=== PATIENT | female | born 1935 | race Caucasian/White ===

== ENCOUNTER → 2016-02-27 | Outpatient (CLI) | payer MEDICARE, BC ==
--- NOTE | 2016-02-27 16:19 | XR ---
Cervical spine HISTORY: Neck pain 5 views of the cervical spine on 6 images, correlation to previous exam February Cervical vertebral bodies show preserved height and bone mineralization. Anterolisthesis grade 1 C5-6 , C4-5, C7-T1. Multilevel spondylosis is present, there is loss of disc height at C6-7, C5-6. Prevert ebral soft tissues are normal. Oblique images is not optimal to evaluate for foraminal encroachment o n the left, on the right there is foraminal encroachment at C5-6 and C6-7. There is multilevel facet arthropathy. IMPRESSION: Degenerative disc disease and foraminal encroachment.
--- NOTE | 2016-02-27 16:28 | XR ---
Lumbar spine HISTORY: Low back pain, M54.5 5 views of the lumbosacral spine Comparison is CT abdomen pelvis 28 Jun 2015 Lumbar vertebral bodies show preserved height and alignment. Loss of bone mineralization is present. Multilevel spondylosis is noted. Loss of disc height at the intervertebral levels. Sclerosis present in the posterior elements. Some mild loss of height at T12, some mild anterior wedging is present, th is is felt likely to been present on previous CT. There is no spondylolysis. Atherosclerotic vascular calcifications are noted incidentally. Some rounded densities in the frontal view in the right elli power location are indeterminate. IMPRESSION: Osteopenia. Degenerative disc disease and facet arthropathy. There may be some minimal co mpression deformity of T12, thought to be chronic. Bone scan or MRI may be of increased sensitivity o r specificity. Additional findings above.
== END | disposition home or self-care (01) ==
LOC: RADXRMAIN 11:42
PROVIDERS: ATTEND Internal Medicine
DX: S19.9XXA Unspecified injury of neck, initial encounter (principal); M50.30 Other cervical disc degeneration, unspecified cervical region; M51.36 Other intervertebral disc degeneration, lumbar region; M46.86 Other specified inflammatory spondylopathies, lumbar region; M85.88 Other specified disorders of bone density and structure, other site
CPT/HCPCS: 72050; 72110

== ENCOUNTER → 2016-05-10 | Outpatient (CLI) | payer MEDICARE, BC ==
--- NOTE | 2016-05-10 18:05 | XR ---
EXAMINATION TYPE: XR shoulder complete LT DATE OF EXAM: 05/10/2016 5:05 PM COMPARISON: NONE HISTORY: Shoulder pain TECHNIQUE: 3 views FINDINGS: There is mild spurring at the greater tuberosity of the humerus. There is minor spurring at the glenohumeral joint. There is spurring at the AC joint. I see no fracture nor dislocation. IMPRESSION: Mild spurring. No fracture seen.
--- NOTE | 2016-05-10 18:06 | XR ---
EXAMINATION TYPE: XR humerus LT DATE OF EXAM: 05/10/2016 5:05 PM COMPARISON: NONE HISTORY: Shoulder pain TECHNIQUE: 2 views FINDINGS: I see no fracture nor dislocation. There is spurring at the lateral humeral condyle. There is spurring on the olecranon process of the ulna. There is spurring at the greater tuberosity of the humerus. IMPRESSION: Hypertrophic spurring. No fracture seen.
== END | disposition home or self-care (01) ==
LOC: RADXRMAIN 16:36
PROVIDERS: ATTEND Internal Medicine
DX: M75.92 Shoulder lesion, unspecified, left shoulder (principal); M25.512 Pain in left shoulder; M77.9 Enthesopathy, unspecified; M79.622 Pain in left upper arm

== ENCOUNTER → 2016-05-16 | Outpatient (CLI) | payer MEDICARE, BC ==
--- NOTE | 2016-05-16 12:50 | XR ---
EXAMINATION TYPE: XR Hip Complete RT DATE OF EXAM: 05/16/2016 12:26 PM CLINICAL HISTORY: pain TECHNIQUE: AP and frogleg views of the right hip are obtained. COMPARISON: None. FINDINGS: There is no acute fracture/dislocation evident. The joint space appears moderately narro wed. The overlying soft tissue appears unremarkable. IMPRESSION: 1. There is no acute fracture or dislocation. ICD 10 NO FRACTURE, INITIAL EVALUATION
== END | disposition home or self-care (01) ==
LOC: RADXRMAIN 12:02
PROVIDERS: ATTEND Internal Medicine
DX: M25.551 Pain in right hip (principal)
CPT/HCPCS: 73502

== ENCOUNTER → 2016-12-05 | Outpatient (CLI) | payer MEDICARE, BC ==
--- NOTE | 2016-12-06 09:46 | XR ---
EXAMINATION TYPE: XR ankle limited LT DATE OF EXAM: 12/05/2016 COMPARISON: NONE HISTORY: Pain FINDINGS: Three views of the ankle demonstrate extensive postsurgical change. The soft tissue ossification and diffuse soft tissue edema. Diffuse osteopenia noted. Calcaneal spurs are noted with sclerosis along t he inferior margin the calcaneus. IMPRESSION: 1. No definite acute fracture or dislocation, if symptoms persist follow-up study in 7 to 10 days wou ld be suggested. 2. Postsurgical change. 3. lucency involving the calcaneus may be related to small intraosseous lipoma or geode. 4. Sclerosis along the inferior margin of the calcaneus could be assessed with bone scan if there is concern for infection.
--- NOTE | 2016-12-06 09:56 | XR ---
EXAMINATION TYPE: XR foot limited LT DATE OF EXAM: 12/05/2016 COMPARISON: NONE HISTORY: Pain TECHNIQUE: Three views are submitted. FINDINGS: Diffuse osteopenia noted with arthropathy of the MTP, PIP and DIP joints. Extensive previous surgery involving the ankle. No acute fracture. Lucency and sclerosis involving the calcaneus could be assess ed with bone scan. IMPRESSION: 1. Severe osteopenia. Findings involving the calcaneus may be chronic. Consider bone scan or CT follo w-up. 2. Arthropathy.
== END | disposition home or self-care (01) ==
LOC: RADXRMAIN 16:58
PROVIDERS: ATTEND Internal Medicine
DX: M12.872 Other specific arthropathies, not elsewhere classified, left ankle and foot (principal); M85.872 Other specified disorders of bone density and structure, left ankle and foot; R93.7 Abnormal findings on diagnostic imaging of other parts of musculoskeletal system; Z98.890 Other specified postprocedural states

== ENCOUNTER 2016-12-06 15:19 | Emergency (ER) | payer MEDICARE, BC ==
--- NOTE | 2016-12-06 16:13 | ED ---
General Adult HPI - General Chief complaint: Skin/Abscess/Foreign Body Stated complaint: [facility] sent Time Seen by Provider: 12/06/16 15:52 Source: patient, family, RN notes reviewed Mode of arrival: wheelchair - History of Present Illness Initial comments: 85-year-old female presents to the emergency department with a chief complaint of some bruising noted right lower x-ray. Patient states that she had a bruise there after she hit her leg about a week ago and she's been scratching it now she notices some additional bruising so they were concerned. She did twist her left ankle we can only state that has been slowly getting more and more swollen as well. They were concerned due to the patient's presenting symptoms and went to [facility] and they were referred here. She denies any easy bruising out of the ordinary else. She states that it is an itchy area of the leg. She denies any other symptoms at this time. Patient denies any recent fever, chills , shortness of breath, chest pain, back pain, abdominal pain, nausea vomiting, numbness or tingling, dysuria or hematuria, constipation or diarrhea, headaches or visual changes, or any other current symptoms. - Related Data Home Medications Medication Instructions Recorded Confirmed Aspirin [Adult Low Dose Aspirin EC] 81 mg PO DAILY 05/23/15 12/06/16 Cholecalciferol [Vitamin D3] 1,000 unit PO DAILY 05/23/15 12/06/16 Clopidogrel [Plavix] 75 mg PO DAILY 05/23/15 12/06/16 Lovastatin [Mevacor] 20 mg PO DAILY 05/23/15 12/06/16 Metoprolol Tartrate [Lopressor] 50 mg PO BID 05/23/15 12/06/16 Multivitamins, Thera [Multivitamin] 1 tab PO DAILY 05/23/15 12/06/16 HYDROcodone/APAP 5-325MG [[place] 1 tab PO Q4HR PRN 05/26/15 12/06/16 5-325] Vit C/E/Zn/Coppr/Lutein/Zeaxan 2 cap PO DAILY 12/06/16 12/06/16 [Preservision Areds 2 Softgel] Allergies Allergy/AdvReac Type Severity Reaction Status Date / Time Penicillins Allergy Anaphylaxis Verified 12/06/16 15:55 procaine HCl [From Novocain] Allergy Unknown Verified 12/06/16 15:55 alprazolam [From Xanax] AdvReac Hallucinati Verified 12/06/16 15:55 ons Review of Systems ROS Statement: Those systems with pertinent positive or pertinent negative responses have been documented in the HPI. ROS Other: All systems not noted in ROS Statement are negative. Past Medical History Past Medical History: Hearing Disorder / Deafness, Hyperlipidemia, Hypertension , Osteoarthritis (OA), Respiratory Disorder History of Any Multi-Drug Resistant Organisms: MRSA Date of last positivie culture/infection: 06/02/15 MDRO Source:: Right Foot Past Surgical History: Adenoidectomy, Appendectomy, Bowel Resection, Heart Catheterization With Stent, Orthopedic Surgery, Tonsillectomy, Tubal Ligation Past Anesthesia/Blood Transfusion Reactions: No Reported Reaction Date of Last Stent Placement:: 1995 Past Psychological History: No Psychological Hx Reported Smoking Status: Never smoker Past Alcohol Use History: Rare Past Drug Use History: None Reported - Past Family History Mother Family Medical History: No Reported History Brother(s) Family Medical History: Cancer Father History Unknown: Yes General Exam - General Exam Comments Initial Comments: General: The patient is awake and alert, in no distress, and does not appear acutely ill. Neck: The neck is supple, there is no tenderness. Cardiovascular: There is a regular rate and rhythm. No murmur, rub or gallop is appreciated. Respiratory: Lungs are clear to auscultation, respirations are non-labored, breath sounds are equal. No wheezes, stridor, rales, or rhonchi. Musculoskeletal: Sensation intact. Patient has 2+ pulses throughout the right lower extremity with Doppler. Patient does appear to have a linear type petechiae type rash just in the anterior aspect of the right leg most consistent with scratching. No open sores. Patient does appear to have some pitting edema tenderness to palpation of the left lower extremity and tenderness with patient of the left ankle. Patient does not ambulate normally. She does have good range of motion noted. Neurological: CN II-XII intact, There are no obvious motor or sensory deficits. Coordination appears grossly intact. Speech is normal. Skin: Skin is warm and dry and no rashes or lesions are noted. Psychiatric: Normal mood and affect. Course Vital Signs 12/06/16 15:41 Temperature 97 F L Pulse Rate 67 Respiratory 18 Rate Blood Pressure 127/68 O2 Sat by Pulse 96 Oximetry EKG Findings - EKG Comments: EKG Findings:: normal sinus rhythm with premature atrial complexes, 69 bpm, normal axis, no atopy, no S-T depressions or elevations, Medical Decision Making - Medical Decision Making 81-year-old female presents for some bruising noted to the right anterior extremity as well as swelling to the left lower extremity. This time patient's lab work has been reviewed. Patient does appear to history of hyperkalemia does have that today. EKG was reviewed that does not show any hyperkalemic changes. This time we will give her Kayexalate. Patient also has a mild bump in her creatinine however she does suffer from chronic kidney disease. We did give her some fluids. Discussions follow-up with her doctor for lab redraw. We are unable to get a PT/INR we were unable to get the blood. We did discuss with the patient that we would like these lab values to rule out any abnormalities due to some petechiae in her leg however our suspicion is most likely due to patient's trauma because she's been scratching leg and the patient has refused to let us broke her anymore for this before. She states that the doctor is always gets her blood and she will just have it checked tomorrow she will return if it worsens I talked with the patient's cleaner and dyer at bedside was states that she will be to the patient returns if it worsens as well. At this time the patient will be discharged home and all questions have been answered. They will be discharged. - Lab Data Result diagrams: 12/06/16 17:25 12/06/16 17:25 Lab Results 12/06/16 12/06/16 Range/Units 17:25 17:25 WBC 9.2 (3.8-10.6) k/uL RBC 2.90 L (3.80-5.40) m/uL Hgb 9.7 L (11.4-16.0) gm/dL Hct 31.1 L (34.0-46.0) % MCV 107.0 H (80.0-100.0) fL MCH 33.2 (25.0-35.0) pg MCHC 31.1 (31.0-37.0) g/dL RDW 13.8 (11.5-15.5) % Plt Count 509 H (150-450) k/uL Sodium 141 (137-145) mmol/L Potassium 5.9 H (3.5-5.1) mmol/L Chloride 101 (98-107) mmol/L Carbon Dioxide 23 (22-30) mmol/L Anion Gap 17 mmol/L BUN 38 H (7-17) mg/dL Creatinine 1.80 H (0.52-1.04) mg/dL Est GFR (MDRD) Af Amer 33 (>60 ml/min/1.73 sqM) Est GFR (MDRD) Non-Af 27 (>60 ml/min/1.73 sqM) Glucose 114 H (74-99) mg/dL Calcium 9.7 (8.4-10.2) mg/dL Total Bilirubin 0.5 (0.2-1.3) mg/dL AST 44 H (14-36) U/L ALT 46 (9-52) U/L Alkaline Phosphatase 90 (38-126) U/L Total Protein 8.9 H (6.3-8.2) g/dL Albumin 4.8 (3.5-5.0) g/dL - Radiology Data Radiology results: report reviewed, image reviewed Disposition Clinical Impression: Left leg swelling, Petechial rash, Chronic kidney disease, Hyperkalemia Disposition: HOME SELF-CARE Condition: Stable Instructions: Hyperkalemia (ED) Additional Instructions: Please follow up with her doctor tomorrow for repeat blood work. Please return for any worsening symptoms. Please use medication as discussed. Please follow up with family doctor if symptoms have not improved over the next two days. Please return to the emergency room if your symptoms increase or worsen or for any other concerns. Referrals: Nidhi Buchanan MD [Primary Care Provider] - 1-2 days Time of Disposition: 18:29
[2016-12-06 17:49] LABS: Calcium 9.7 mg/dL (8.4-10.2); Potassium 5.9 mmol/L (3.5-5.1); Total Bilirubin 0.5 mg/dL (0.2-1.3); Total Protein 8.9 g/dL (6.3-8.2)
[2016-12-06 17:52] LABS: Aty Lym Flag Slight; CH 31.4; CHCM 29.5; HCT 31.1 % (34.0-46.0); HDW 2.31; HGB 9.7 gm/dL (11.4-16.0); Hypochromasia Marked; MCH 33.2 pg (25.0-35.0); MCHC 31.1 g/dL (31.0-37.0); Macrocytosis Moderate; Mean Platelet Volume 7.6; RDW 13.8 % (11.5-15.5); WBC 9.2 k/uL (3.8-10.6); WBC (Perox) 9.49
--- NOTE | 2016-12-06 18:09 | US ---
EXAMINATION TYPE: US venous doppler duplex LE LT DATE OF EXAM: 12/06/2016 6:05 PM COMPARISON: NONE CLINICAL HISTORY: Pain. Left leg edema SIDE PERFORMED: Left TECHNIQUE: The lower extremity deep venous system is examined utilizing real time linear array sonog lemuel with graded compression, doppler sonography and color-flow sonography. VESSELS IMAGED: External Iliac Vein (EIV) Common Femoral Vein Deep Femoral Vein Greater Saphenous Vein * Femoral Vein Popliteal Vein Small Saphenous Vein * Proximal Calf Veins (* superficial vessels) Grayscale, color doppler, spectral doppler imaging performed of the deep veins of the lower extremiti es. There is normal flow, compressibility, vascular waveforms. Left Leg: Negative for DVT No evidence of DVT left leg IMPRESSION: No sonographic evidence of deep venous thrombosis within the left lower extremity.
[2016-12-06] MEDS ORDERED: SODIUM CHLORIDE 0.9% 1,000 ML IV STA (18:10)
[2016-12-06 18:27] LABS: Add Differential Manual Differential
[2016-12-06 18:30] LABS: Band Neutrophils % 2 %; Nucleated Red Blood Cells 0 /100 WBC (0-0); Total Cells Counted 100
[2016-12-06] MEDS ORDERED: SODIUM POLYSTYRENE SULFONATE 15 GM/60 ML BOTTLE PO STA (18:30)
[2016-12-06 18:31] LABS: Manual Review Performed
[2016-12-06 19:41] VITALS: BP 191/76; PULSE 72; RESP 16; TEMP 96.9
== END 2016-12-06 19:51 | disposition home or self-care (01) ==
LOC: EC 15:19
DX: M79.89 Other specified soft tissue disorders (principal); E87.5 Hyperkalemia; N18.9 Chronic kidney disease, unspecified; R21 Rash and other nonspecific skin eruption; R60.0 Localized edema; E78.5 Hyperlipidemia, unspecified; I12.9 Hypertensive chronic kidney disease with stage 1 through stage 4 chronic kidney disease, or unspecified chronic kidney disease; M19.90 Unspecified osteoarthritis, unspecified site; Z79.02 Long term (current) use of antithrombotics/antiplatelets; Z79.82 Long term (current) use of aspirin; Z79.899 Other long term (current) drug therapy; Z88.0 Allergy status to penicillin; Z88.4 Allergy status to anesthetic agent; Z88.8 Allergy status to other drugs, medicaments and biological substances
CPT/HCPCS: 36415; 80053; 85025; 93005; 96360; 99284

== ENCOUNTER 2017-09-01 19:59 | Inpatient (IN) | payer MEDICARE, BC ==
[2017-09-01] MEDS ORDERED: KETOROLAC 30 MG/ML 1 ML VIAL IVP STA (20:37)
--- NOTE | 2017-09-01 20:40 | ED ---
Fall HPI - General Chief Complaint: Fall Stated Complaint: fall/hip pain Time Seen by Provider: 09/01/17 20:27 Source: patient, family Mode of arrival: wheelchair - History of Present Illness Initial Comments: 81-year-old female presenting with left hip pain. Patient states yesterday all reaching for a towel she lost her footing, states she twisted to the right but did not fall. She states she had no pain at that time and then she woke this morning had severe left hip pain. She normally has trouble ambulating at baseline and uses a rolling walker but today her required four people to get her to the hospital. Patient states she at baseline has neuropathy and has not had any worsening numbness in the left lower extremity. She denies any chest pain shortness of breath or presyncopal symptoms. Denies any head injury or blood thinner use. Patient is incontinent and the daughter is complaining that she is having foul-smelling urine. - Related Data Home Medications Medication Instructions Recorded Confirmed Aspirin [Adult Low Dose Aspirin EC] 81 mg PO DAILY 05/23/15 12/06/16 Cholecalciferol [Vitamin D3] 1,000 unit PO DAILY 05/23/15 12/06/16 Clopidogrel [Plavix] 75 mg PO DAILY 05/23/15 12/06/16 Lovastatin [Mevacor] 20 mg PO DAILY 05/23/15 12/06/16 Metoprolol Tartrate [Lopressor] 50 mg PO BID 05/23/15 12/06/16 Multivitamins, Thera [Multivitamin] 1 tab PO DAILY 05/23/15 12/06/16 HYDROcodone/APAP 5-325MG [[place] 1 tab PO Q4HR PRN 05/26/15 12/06/16 5-325] Vit C/E/Zn/Coppr/Lutein/Zeaxan 2 cap PO DAILY 12/06/16 12/06/16 [Preservision Areds 2 Softgel] Allergies Allergy/AdvReac Type Severity Reaction Status Date / Time Penicillins Allergy Anaphylaxis Verified 09/01/17 20:15 procaine HCl [From Novocain] Allergy Unknown Verified 09/01/17 20:15 alprazolam [From Xanax] AdvReac Hallucinati Verified 09/01/17 20:15 ons Review of Systems ROS Statement: Those systems with pertinent positive or pertinent negative responses have been documented in the HPI. Review of Systems Constitutional: Denies fever, chills Eyes: Denies change in vision, Denies pain Ears, nose, mouth, throat: Denies headaches, Denies sore throat Cardiovascular: Denies chest pain. Denies palpitations Respiratory: Denies shortness of breath, Denies cough Gastrointestinal: Denies abdominal pain. Denies nausea, vomiting, diarrhea. Genitourinary: Denies hematuria, Denies infections Musculoskeletal: Left hip pain. Denies swelling Integumentary: Denies rash Neurological: Denies headache, focal weakness, focal numbness Psychiatric: Denies anxiety, Denies depression Hematologic/Lymphatic: Denies easy bleeding or bruising ROS Other: All systems not noted in ROS Statement are negative. Past Medical History Past Medical History: Cancer, Hearing Disorder / Deafness, Hyperlipidemia, Hypertension, Osteoarthritis (OA), Respiratory Disorder Additional Past Medical History / Comment(s): right breast cancer History of Any Multi-Drug Resistant Organisms: MRSA Date of last positivie culture/infection: 06/02/15 MDRO Source:: Right Foot Past Surgical History: Adenoidectomy, Appendectomy, Bowel Resection, Breast Surgery, Heart Catheterization With Stent, Orthopedic Surgery, Tonsillectomy, Tubal Ligation Additional Past Surgical History / Comment(s): right arm, Past Anesthesia/Blood Transfusion Reactions: No Reported Reaction Date of Last Stent Placement:: 1995 Past Psychological History: No Psychological Hx Reported Smoking Status: Never smoker Past Alcohol Use History: Rare Past Drug Use History: None Reported - Past Family History Mother Family Medical History: No Reported History Brother(s) Family Medical History: Cancer Father History Unknown: Yes General Exam - General Exam Comments Initial Comments: General: Awake, alert, No acute Distress. Obese HENT: Normocephalic. Atraumatic Eyes: PERRL. EOMI. No scleral icterus. No injected conjunctiva Neck: Full ROM Chest/Lungs: Clear to auscultation bilaterally. No wheezing, rhonchi, or rales Cardiac: Regular rate, rhythm. No murmurs or rubs. 1+DP pulse on left Abdomen/GI: [Soft, nontender, nondistended. No rebound, guarding, or rigidity. Musculoskeletal: Limited ROM of left hip secondary to pain Skin: Warm, dry, intact Neurologic: A/Ox3, no weakness, L3-S1 decreased on LLE, no coordination deficit Limitations: physical limitation Course Vital Signs 09/01/17 09/01/17 20:10 23:11 Temperature 98.4 F Pulse Rate 96 Respiratory 18 16 Rate Blood Pressure 123/53 O2 Sat by Pulse 96 Oximetry Medical Decision Making - Medical Decision Making 81-year-old female presenting with left hip pain. Initial exam the patient is awake, alert, no acute distress. VSS. Patient has left groin tenderness. Decreased range of motion of the left hip secondary to pain. Patient also has foul-smelling urine. She is currently in a brief and is incontinent. She denies any head injury, neck injury and therefore imaging of the head and neck was not done. She denied back pain. Patient's x-rays were negative. A CT was done which showed osteoarthritis but no acute fracture. She was found to have a UTI, was given Bactrim, a urine culture was sent. The remainder the patient' s laboratory workup revealed a leukocytosis and CKD. At this and the patient requires admission for inability to ambulate secondary to her left hip pain. Spoke with Dr. Barrios who is agreeable to admission. Patient is currently stable for transfer to the floor. - Lab Data Result diagrams: 09/01/17 21:25 09/01/17 21:25 Lab Results 09/01/17 09/01/17 09/01/17 Range/Units 21:25 21:25 21:30 WBC 11.5 H (3.8-10.6) k/uL RBC 2.27 L (3.80-5.40) m/uL Hgb 7.3 L (11.4-16.0) gm/dL Hct 23.0 L (34.0-46.0) % MCV 101.0 H (80.0-100.0) fL MCH 32.2 (25.0-35.0) pg MCHC 31.8 (31.0-37.0) g/dL RDW 13.9 (11.5-15.5) % Plt Count 467 H (150-450) k/uL Neutrophils % (Manual) 53 % Lymphocytes % (Manual) 30 % Monocytes % (Manual) 17 % Neutrophils # (Manual) 6.10 (1.3-7.7) k/uL Lymphocytes # (Manual) 3.45 (1.0-4.8) k/uL Monocytes # (Manual) 1.96 H (0-1.0) k/uL Nucleated RBCs 0 (0-0) /100 WBC Manual Slide Review Performed Large Platelets Present Macrocytosis Slight Sodium 137 (137-145) mmol/L Potassium 5.1 (3.5-5.1) mmol/L Chloride 100 (98-107) mmol/L Carbon Dioxide 24 (22-30) mmol/L Anion Gap 13 mmol/L BUN 58 H (7-17) mg/dL Creatinine 2.40 H (0.52-1.04) mg/dL Est GFR (CKD-EPI)AfAm 21 (>60 ml/min/1.73 sqM) Est GFR (CKD-EPI)NonAf 18 (>60 ml/min/1.73 sqM) Glucose 127 H (74-99) mg/dL Calcium 9.0 (8.4-10.2) mg/dL Urine Color Light Yellow Urine Appearance Turbid H (Clear) Urine pH 6.5 (5.0-8.0) Ur Specific [place] 1.009 (1.001-1.035) Urine Protein 1+ H (Negative) Urine Glucose (UA) Negative (Negative) Urine Ketones Negative (Negative) Urine Blood Moderate H (Negative) Urine Nitrite Positive H (Negative) Urine Bilirubin Negative (Negative) Urine Urobilinogen <2.0 (<2.0) mg/dL Ur Leukocyte Esterase Large H (Negative) Urine RBC 16 H (0-5) /hpf Urine WBC >182 H (0-5) /hpf Urine WBC Clumps Many H (None) /hpf Urine Bacteria Many H (None) /hpf Urine Mucus Rare H (None) /hpf Disposition Clinical Impression: UTI (urinary tract infection), CKD (chronic kidney disease), Inability to ambulate due to hip, Fall Disposition: ADMITTED IP TO THIS HOSP Condition: Good Referrals: Isabelle Dailey MD [Primary Care Provider] - 1-2 days Decision Date: 09/02/17 Decision Time: 00:52
[2017-09-01 21:49] LABS: Appearance,Urine Turbid (Clear); Bacteria,Urine Many /hpf; Bilirubin,Urine Negative (Negative); Blood,Urine Moderate (Negative); Color,Urine Light Yellow; Glucose,Urine (UA) Negative (Negative); Ketones,Urine Negative (Negative); Leukocyte Esterase,Urine Large (Negative); Mucus,Urine Rare /hpf; Nitrite,Urine Positive (Negative); PH, Urine 6.5 (5.0-8.0); Protein,Urine 1+ (Negative); RBC,Urine 16 /hpf (0-5); Specific Gravity,Urine 1.009 (1.001-1.035); Urobilinogen,Urine <2.0 mg/dL (<2.0); WBC,Urine >182 /hpf (0-5)
[2017-09-01 22:02] LABS: HGB 7.3 gm/dL (11.4-16.0); MCH 32.2 pg (25.0-35.0); MCHC 31.8 g/dL (31.0-37.0); Macrocytosis Slight; Mean Platelet Volume 7.2; Platelet Count 467 k/uL (150-450); RBC 2.27 m/uL (3.80-5.40); RDW 13.9 % (11.5-15.5); WBC 11.5 k/uL (3.8-10.6)
[2017-09-01] MEDS ORDERED: SULFAMETHOX-TMP 800-160MG 1 EACH TAB PO STA (22:02)
[2017-09-01] MEDS ORDERED: FAMOTIDINE 20 MG TAB PO STA (22:13)
[2017-09-01 22:18] LABS: Lymphocytes # (M) 3.45 k/uL (1.0-4.8); Monocytes # (M) 1.96 k/uL (0-1.0); Neutrophils % (M) 53 %; Nucleated Red Blood Cells 0 /100 WBC (0-0); Total Cells Counted 100
[2017-09-01 22:19] LABS: Large Platelets Present
[2017-09-01 22:25] LABS: Potassium 5.1 mmol/L (3.5-5.1)
--- NOTE | 2017-09-01 23:31 | XR ---
EXAMINATION TYPE: XR Hip LT and AP Pelvis DATE OF EXAM: 09/01/2017 COMPARISON: NONE HISTORY: Twisted leg. Pain. TECHNIQUE: A single AP view of the pelvis is obtained. Two views of the left hip are obtained. FINDINGS: I see no fracture nor dislocation. There is spurring of the acetabulum. Pelvic ring is int act. Sacroiliac joints appear normal. There is no sign of hip dysplasia. IMPRESSION: No acute abnormality of the pelvis and left hip. Hypertrophic degenerative spur formation.
--- NOTE | 2017-09-01 23:32 | XR ---
EXAMINATION TYPE: XR femur LT DATE OF EXAM: 09/01/2017 COMPARISON: None HISTORY: Leg pain TECHNIQUE: 4 views FINDINGS: There is a left knee prosthesis. Components appear in anatomic position. There is acetabula r spurring. I see no fracture nor dislocation. There is vascular calcification. IMPRESSION: No acute abnormality of the left femur.
--- NOTE | 2017-09-02 00:46 | CT ---
EXAMINATION TYPE: CT hip LT wo con DATE OF EXAM: 09/02/2017 COMPARISON: None HISTORY: Left Hip pain CT DLP: 456.80 mGycm Automated exposure control for dose reduction was used. FINDINGS: Multiple axial sections were obtained from the level of the mid ileum to the subtrochanteric femur wi th no contrast. IMPRESSION: THERE IS MILD ACETABULAR SPURRING. THERE IS SLIGHT NARROWING OF THE HIP JOINT SPACE. THERE IS SPURRIN G OF THE FEMORAL HEAD. I SEE NO FRACTURE. PROXIMAL FEMUR IS INTACT. THE ACETABULUM IS INTACT. THE VIS UALIZED LEFT SACROILIAC JOINT IS INTACT. I SEE NO FOCAL BONE DESTRUCTION. I SEE NO SIGN OF HIP JOINT EFFUSION. IMPRESSION: MILD TO MODERATE HYPERTROPHIC OSTEOARTHRITIS. NO FRACTURE SEEN.
[2017-09-02] MEDS ORDERED: IBUPROFEN 400 MG TAB PO PRN (00:55)
[2017-09-02] MEDS ORDERED: NALOXONE 0.4 MG/ML 1 ML VIAL IV PRN (00:55)
[2017-09-02] MEDS ORDERED: ONDANSETRON 4 MG/2 ML VIAL IVP PRN (00:55)
[2017-09-02] MEDS ORDERED: ACETAMINOPHEN TAB 325 MG TAB PO PRN (00:55)
[2017-09-02] MEDS: HYDROcodone/APAP 5-325MG 1 EACH TAB PO PRN ×2 (03:11→22:23)
--- NOTE | 2017-09-02 07:00 | P.HPIM ---
History of Present Illness H&P Date: 09/02/17 Chief Complaint: Severe left hip pain 81-year-old female with history of hypertension presented to the ER with left hip pain. Patient reports that at baseline she has difficulties with walking she uses a walker however she woke up this morning with severe left hip pain. She admits to trying to reach out for a towel yesterday when she lost her balance however she did not fall but only twisted her legs. Initially had no pain but when she woke up this morning she noticed severe throbbing left hip pain 10 out of 10 in severity and nonradiating movement makes it worse. She required for people to get her to the hospital. She denies any numbness and tingling other than her baseline neuropathy she denies any head injury denies any loss of consciousness. Denies any other traumas. She denies taking any blood thinners. Denies any bleeding. Denies any chest pain or shortness of breath denies any nausea or vomiting Further workup and imaging in the ED suggested urinary tract infection, showed no acute fractures Review of Systems Pertinent positives as noted in HPI. All other systems were reviewed and are negative Past Medical History Past Medical History: Cancer, Hearing Disorder / Deafness, Hyperlipidemia, Hypertension, Osteoarthritis (OA), Respiratory Disorder Additional Past Medical History / Comment(s): right breast cancer History of Any Multi-Drug Resistant Organisms: MRSA Date of last positivie culture/infection: 06/02/15 MDRO Source:: Right Foot Past Surgical History: Adenoidectomy, Appendectomy, Bowel Resection, Breast Surgery, Heart Catheterization With Stent, Orthopedic Surgery, Tonsillectomy, Tubal Ligation Additional Past Surgical History / Comment(s): right arm, Past Anesthesia/Blood Transfusion Reactions: No Reported Reaction Date of Last Stent Placement:: 1995 Past Psychological History: No Psychological Hx Reported Smoking Status: Never smoker Past Alcohol Use History: Rare Past Drug Use History: None Reported - Past Family History Mother Family Medical History: No Reported History Brother(s) Family Medical History: Cancer Father History Unknown: Yes Medications and Allergies Home Medications Medication Instructions Recorded Confirmed Type Aspirin [Adult Low Dose Aspirin EC] 81 mg PO DAILY 05/23/15 12/06/16 History Cholecalciferol [Vitamin D3] 1,000 unit PO DAILY 05/23/15 12/06/16 History Clopidogrel [Plavix] 75 mg PO DAILY 05/23/15 12/06/16 History Lovastatin [Mevacor] 20 mg PO DAILY 05/23/15 12/06/16 History Metoprolol Tartrate [Lopressor] 50 mg PO BID 05/23/15 12/06/16 History Multivitamins, Thera [Multivitamin] 1 tab PO DAILY 05/23/15 12/06/16 History HYDROcodone/APAP 5-325MG [[place] 1 tab PO Q4HR PRN 05/26/15 12/06/16 History 5-325] Vit C/E/Zn/Coppr/Lutein/Zeaxan 2 cap PO DAILY 12/06/16 12/06/16 History [Preservision Areds 2 Softgel] Allergies Allergy/AdvReac Type Severity Reaction Status Date / Time Penicillins Allergy Anaphylaxis Verified 09/01/17 20:15 procaine HCl [From Novocain] Allergy Unknown Verified 09/01/17 20:15 alprazolam [From Xanax] AdvReac Hallucinati Verified 09/01/17 20:15 ons Physical Exam Vitals: Vital Signs Temp Pulse Resp BP Pulse Ox 09/02/17 03:06 71 20 147/61 97 09/01/17 23:11 16 09/01/17 20:10 98.4 F 96 18 123/53 96 Intake and Output 09/01/17 09/01/17 09/02/17 14:59 22:59 06:59 Other: Weight 85.275 kg Constitutional: No acute distress, conversant, pleasant Eyes: Anicteric sclerae, moist conjunctiva, no lid-lag Pupils equal round reactive to light ENMT: NC/AT Oropharynx clear, no erythema, or exudates Neck: Supple, FROM, no masses, or JVD No carotid bruits No thyromegaly Lungs: Clear to auscultation Clear to percussion Normal respiratory effort, no accessory muscle use Cardiovascular: Heart regular in rate and rhythm, No murmurs, gallops, or rubs No peripheral edema Abdominal: Soft Nontender, no guarding, rebound or rigidity Abdomen moving with respiration Normoactive bowel sounds No hepatomegaly, No splenomegaly No palpable mass No abdominal wall hernia noted Skin: Normal temperature, tone, texture, turgor No induration No subcutaneous nodules No rash, lesions No ulcers Extremities: No digital cyanosis No clubbing Pedal pulses intact and symmetrical Radial pulses intact and symmetrical No calf tenderness Psychiatric: Alert and oriented to person, place Appropriate affect fair judgment Neuro limited range of motion of the left hip with some tenderness to palpation of the left hip and groin area no bruising no swelling nor erythema no warmth to the touch Muscles Strength 4/5 in all 4 extremities except for limited exam over the left hip due to pain Sensation to light touch grossly present throughout Cranial nerves II-XII grossly intact No focal sensory deficits Lymphatics: no palpable cervical or supraclavicular , or inguinal lymph nodes Results CBC & Chem 7: 09/01/17 21:25 09/01/17 21:25 Labs: Abnormal Lab Results - Last 24 Hours (Table) 09/01/17 09/01/17 09/01/17 Range/Units 21:25 21:25 21:30 WBC 11.5 H (3.8-10.6) k/uL RBC 2.27 L (3.80-5.40) m/uL Hgb 7.3 L (11.4-16.0) gm/dL Hct 23.0 L (34.0-46.0) % MCV 101.0 H (80.0-100.0) fL Plt Count 467 H (150-450) k/uL Monocytes # (Manual) 1.96 H (0-1.0) k/uL BUN 58 H (7-17) mg/dL Creatinine 2.40 H (0.52-1.04) mg/dL Glucose 127 H (74-99) mg/dL Urine Appearance Turbid H (Clear) Urine Protein 1+ H (Negative) Urine Blood Moderate H (Negative) Urine Nitrite Positive H (Negative) Ur Leukocyte Esterase Large H (Negative) Urine RBC 16 H (0-5) /hpf Urine WBC >182 H (0-5) /hpf Urine WBC Clumps Many H (None) /hpf Urine Bacteria Many H (None) /hpf Urine Mucus Rare H (None) /hpf Assessment and Plan Assessment: 81-year-old female with history of hypertension and osteoarthritis. Admitted to the hospital as inpatient with anticipated length of stay of more than 48 hours for acute kidney injury on CK D, acute urinary tract infection and decreased mobility secondary to left hip pain patient will be evaluated by physical therapy and occupational therapy for further recommendations. Imaging suggested no acute fractures Plan: Acute kidney injury on CK D CK D Avoid nephrotoxic meds Monitor urine output Follow-up renal function IV fluid hydration Anemia secondary to chronic disease currently stable slight decline Patient denies GI bleeding Continue to monitor CBC Urinary tract infection On Bactrim Decreased mobility secondary to left hip pain no acute fractures Osteoarthritis Physical therapy and occupational therapy Fall precautions Hypertension currently stable Continue home meds DVT prophylaxis heparin subcu 3 times a day Diet as tolerated Surrogate decision-maker: Patient's daughter CODE STATUS: Full code Anticipated discharge: 48-[address]: Pending physical therapy evaluation A total of 50 minutes was spent on the care of this complex patient more than 50 % of the time was spent in counseling and care coordination.
[2017-09-02] MEDS ORDERED: LEVOFLOXACIN 750MG-D5W PMX 750 MG in DEXTROSE/WATER 1 150ML.BAG IVPB ONE (08:00)
[2017-09-02] MEDS: SODIUM CHLORIDE 0.9% 1,000 ML IV SCH ×2 (08:36→18:55)
[2017-09-02] MEDS: ASPIRIN 81 MG PO SCH (08:37)
[2017-09-02] MEDS: ATORVASTATIN 10 MG TAB PO SCH (08:38)
[2017-09-02] MEDS: METOPROLOL TARTRATE 50 MG TAB PO SCH ×2 (08:38→21:12)
[2017-09-02] MEDS: VIT A,C & E-LUTEIN-MINERALS 1 EACH TAB PO SCH (08:38)
[2017-09-02] MEDS: CLOPIDOGREL 75 MG TAB PO SCH (08:38)
[2017-09-02] MEDS ORDERED: SULFAMETHOX-TMP 800-160MG 1 EACH TAB PO SCH (09:00)
[2017-09-02] MEDS: HEPARIN SODIUM,PORCINE 5,000 UNIT/ML 1 ML VIAL SQ SCH ×2 (09:02→21:11)
--- NOTE | 2017-09-02 16:16 | P.PN ---
Progress Note - Text Progress Note Date: 09/02/17 Patient was seen and examined, she has not tried to get out of bed yet so she doesn't know if she is still weak or not. Still complaining from left groin pain because she twisted her left hip before she came in.
[2017-09-03] MEDS: SODIUM CHLORIDE 0.9% 1,000 ML IV SCH ×2 (06:04→11:19)
[2017-09-03] MEDS ORDERED: LEVOFLOXACIN 500MG-D5W PMX 500 MG in DEXTROSE/WATER 1 100ML.BAG IVPB SCH (08:00)
[2017-09-03] MEDS: VIT A,C & E-LUTEIN-MINERALS 1 EACH TAB PO SCH (09:12)
[2017-09-03] MEDS: ASPIRIN 81 MG PO SCH (09:12)
[2017-09-03] MEDS: METOPROLOL TARTRATE 50 MG TAB PO SCH ×2 (09:12→20:11)
[2017-09-03] MEDS: CLOPIDOGREL 75 MG TAB PO SCH (09:12)
[2017-09-03] MEDS: ATORVASTATIN 10 MG TAB PO SCH (09:12)
[2017-09-03] MEDS: HEPARIN SODIUM,PORCINE 5,000 UNIT/ML 1 ML VIAL SQ SCH ×2 (09:14→20:12)
[2017-09-03 09:52] LABS: Calcium 9.2 mg/dL (8.4-10.2); Potassium 5.2 mmol/L (3.5-5.1)
[2017-09-03 10:53] LABS: HCT 24.9 % (34.0-46.0); HGB 7.5 gm/dL (11.4-16.0); Hypochromasia Moderate; MCH 31.7 pg (25.0-35.0); MCHC 30.1 g/dL (31.0-37.0); MCV 105.4 fL (80.0-100.0); Macrocytosis Slight; Mean Platelet Volume 7.6; Platelet Count 474 k/uL (150-450); RBC 2.36 m/uL (3.80-5.40); RDW 13.6 % (11.5-15.5); WBC 9.1 k/uL (3.8-10.6)
[2017-09-03 11:24] LABS: Eosinophils # (M) 0.27 k/uL (0-0.7); Monocytes # (M) 1.18 k/uL (0-1.0); Neutrophils # (M) 5.64 k/uL (1.3-7.7); Neutrophils % (M) 62 %; Nucleated Red Blood Cells 0 /100 WBC (0-0); Total Cells Counted 100
[2017-09-03 11:25] LABS: Polychromasia Present
--- NOTE | 2017-09-03 11:49 | P.PN ---
Subjective Progress Note Date: 09/03/17 Principal diagnosis: Falls and weakness Patient is feeling better today, she was able to get up by herself to go to the bathroom. No chest pain or shortness of breath. Objective - Vital Signs Vital signs: Vital Signs Temp 97.1 F L 09/03/17 06:03 Pulse 65 09/03/17 06:03 Resp 17 09/03/17 06:03 BP 135/55 09/03/17 06:03 Pulse Ox 95 09/03/17 06:03 Intake & Output 09/02/17 09/03/17 09/03/17 18:59 06:59 18:59 Intake Total 600 800 Balance 600 800 Intake: Intake, IV Titration 800 Amount Sodium Chloride 0.9% 1, 800 000 ml @ 100 mls/hr IV . Q10H [facility] Rx#:[id number] Oral 600 Other: Voiding Method Diaper # Voids 1 2 - Exam Constitutional: No acute distress, conversant, pleasant Eyes:Anicteric sclerae, moist conjunctiva, no lid-lag, PERRLA, ENMT: Oropharynx clear, no erythema, exudates Neck: Supple, FROM, no masses, or JVD, No carotid bruits, No thyromegaly Lungs: Clear to auscultation, Clear to percussion, Normal respiratory effort, no accessory muscle use Cardiovascular: Heart regular in rate and rhythm, No murmurs, gallops, or rubs, 1+ peripheral edema Abdominal: Soft, Nontender, no guarding, rebound or rigidity, Normoactive bowel sounds, No hepatomegaly, No splenomegaly, No palpable mass Skin: Normal temperature, tone, texture, turgor, no induration, No subcutaneous nodules, No rash, lesions, No ulcers Extremities: No digital cyanosis, No clubbing, Pedal pulses intact and symmetrical, Radial pulses intact and symmetrical, No calf tenderness Psychiatric: Alert and oriented to person, place and time, appropriate affect, intact judgement Neuro: Muscles Strength 5/5 in all 4 extremities, Sensation to light touch grossly present throughout, Cranial nerves II-XII grossly intact, no focal sensory deficits - Labs CBC & Chem 7: 09/03/17 08:54 09/03/17 08:54 Labs: Abnormal Lab Results - Last 24 Hours (Table) 09/03/17 09/03/17 Range/Units 08:54 08:54 RBC 2.36 L (3.80-5.40) m/uL Hgb 7.5 L (11.4-16.0) gm/dL Hct 24.9 L (34.0-46.0) % MCV 105.4 H (80.0-100.0) fL MCHC 30.1 L (31.0-37.0) g/dL Plt Count 474 H (150-450) k/uL Monocytes # (Manual) 1.18 H (0-1.0) k/uL Potassium 5.2 H (3.5-5.1) mmol/L Carbon Dioxide 20 L (22-30) mmol/L BUN 43 H (7-17) mg/dL Creatinine 2.28 H (0.52-1.04) mg/dL Glucose 124 H (74-99) mg/dL Microbiology - Last 24 Hours (Table) 09/01/17 21:30 Urine Culture - Preliminary Urine,Catheterized Gram Neg Bacilli Assessment and Plan Plan: Acute kidney injury on CKD stage 4 Improving Avoid nephrotoxic meds Monitor urine output Follow-up renal function IV fluid hydration Consult nephro Anemia secondary to chronic disease currently stable slight decline Stable Send anemia workup, iron profile, ferritin, LDH and ferritin Consult nephro for possible procrit shots.. Continue to monitor CBC Urinary tract infection On abx. Decreased mobility secondary to left hip pain no acute fractures/Osteoarthritis Physical therapy and occupational therapy Fall precautions Hypertension currently stable Continue home meds DVT prophylaxis heparin subcu 3 times a day Diet as tolerated
[2017-09-03 13:39] LABS: Reticulocyte % 2.4 % (0.5-2.0)
[2017-09-03 17:45] LABS: Iron Saturation 26.64 (12.00-45.00)
[2017-09-04] MEDS ORDERED: HYDROcodone/APAP 5-325MG 1 EACH TAB ONE (03:00)
[2017-09-04] MEDS: SODIUM CHLORIDE 0.9% 1,000 ML IV SCH ×3 (06:03→16:23)
[2017-09-04 08:56] LABS: HCT 23.6 % (34.0-46.0); HGB 7.5 gm/dL (11.4-16.0); MCH 32.5 pg (25.0-35.0); MCHC 31.8 g/dL (31.0-37.0); MCV 102.1 fL (80.0-100.0); Macrocytosis Slight; Mean Platelet Volume 7.3; Platelet Count 484 k/uL (150-450); RBC 2.32 m/uL (3.80-5.40); RDW 13.6 % (11.5-15.5)
[2017-09-04] MEDS: VIT A,C & E-LUTEIN-MINERALS 1 EACH TAB PO SCH (09:04)
[2017-09-04] MEDS: ASPIRIN 81 MG PO SCH (09:04)
[2017-09-04] MEDS: ATORVASTATIN 10 MG TAB PO SCH (09:04)
[2017-09-04] MEDS: METOPROLOL TARTRATE 50 MG TAB PO SCH ×2 (09:04→20:24)
[2017-09-04] MEDS: CLOPIDOGREL 75 MG TAB PO SCH (09:05)
[2017-09-04] MEDS: HEPARIN SODIUM,PORCINE 5,000 UNIT/ML 1 ML VIAL SQ SCH ×2 (09:05→20:24)
[2017-09-04 09:31] LABS: Calcium 9.1 mg/dL (8.4-10.2); Magnesium 1.7 mg/dL (1.6-2.3); Phosphorus 4.3 mg/dL (2.5-4.5); Potassium 5.2 mmol/L (3.5-5.1)
[2017-09-04 10:57] LABS: Eosinophils # (M) 0.09 k/uL (0-0.7); Lymphocytes # (M) 3.69 k/uL (1.0-4.8); Monocytes # (M) 1.44 k/uL (0-1.0); Myelocytes # (M) 0.09 k/uL (0); Myelocytes % 1 %; Neutrophils # (M) 3.78 k/uL (1.3-7.7); Neutrophils % (M) 42 %; Nucleated Red Blood Cells 0 /100 WBC (0-0); Poikilocytosis (M) Present; Total Cells Counted 200
--- NOTE | 2017-09-04 11:45 | P.PN ---
Subjective Progress Note Date: 09/04/17 Principal diagnosis: Falls and weakness Feeling ok, no pain. Doesn't feel weak. Objective - Vital Signs Vital signs: Vital Signs Temp 97.1 F L 09/04/17 07:42 Pulse 69 09/04/17 07:42 Resp 17 09/04/17 07:42 BP 129/56 09/04/17 07:42 Pulse Ox 98 09/04/17 07:42 Intake & Output 09/03/17 09/04/17 09/04/17 18:59 06:59 18:59 Intake Total 800 Balance 800 Intake: Intake, IV Titration 800 Amount Sodium Chloride 0.9% 1, 800 000 ml @ 100 mls/hr IV . Q10H [facility] Rx#:[id number] Other: Voiding Method Bedpan Bedside Commode Diaper # Voids 2 5 - Exam Constitutional: No acute distress, conversant, pleasant Eyes:Anicteric sclerae, moist conjunctiva, no lid-lag, PERRLA, ENMT: Oropharynx clear, no erythema, exudates Neck: Supple, FROM, no masses, or JVD, No carotid bruits, No thyromegaly Lungs: Clear to auscultation, Clear to percussion, Normal respiratory effort, no accessory muscle use Cardiovascular: Heart regular in rate and rhythm, No murmurs, gallops, or rubs, 1+ peripheral edema Abdominal: Soft, Nontender, no guarding, rebound or rigidity, Normoactive bowel sounds, No hepatomegaly, No splenomegaly, No palpable mass Skin: Normal temperature, tone, texture, turgor, no induration, No subcutaneous nodules, No rash, lesions, No ulcers Extremities: No digital cyanosis, No clubbing, Pedal pulses intact and symmetrical, Radial pulses intact and symmetrical, No calf tenderness Psychiatric: Alert and oriented to person, place and time, appropriate affect, intact judgement Neuro: Muscles Strength 5/5 in all 4 extremities, Sensation to light touch grossly present throughout, Cranial nerves II-XII grossly intact, no focal sensory deficits - Labs CBC & Chem 7: 09/04/17 08:23 09/04/17 08:23 Labs: Abnormal Lab Results - Last 24 Hours (Table) 09/03/17 09/03/17 09/03/17 Range/Units 08:54 08:54 08:54 RBC (3.80-5.40) m/uL Hgb (11.4-16.0) gm/dL Hct (34.0-46.0) % MCV (80.0-100.0) fL Plt Count (150-450) k/uL Monocytes # (Manual) (0-1.0) k/uL Myelocytes # (Manual) (0) k/uL Retic Count 2.4 H (0.5-2.0) % Potassium (3.5-5.1) mmol/L Chloride (98-107) mmol/L Carbon Dioxide (22-30) mmol/L BUN (7-17) mg/dL Creatinine (0.52-1.04) mg/dL Ferritin 442.3 H (10.0-291.0) ng/mL RBC Folate 2,129 H (280 - 791) ng/mL 09/04/17 09/04/17 Range/Units 08:23 08:23 RBC 2.32 L (3.80-5.40) m/uL Hgb 7.5 L (11.4-16.0) gm/dL Hct 23.6 L (34.0-46.0) % MCV 102.1 H (80.0-100.0) fL Plt Count 484 H (150-450) k/uL Monocytes # (Manual) 1.44 H (0-1.0) k/uL Myelocytes # (Manual) 0.09 H (0) k/uL Retic Count (0.5-2.0) % Potassium 5.2 H (3.5-5.1) mmol/L Chloride 109 H (98-107) mmol/L Carbon Dioxide 19 L (22-30) mmol/L BUN 39 H (7-17) mg/dL Creatinine 2.17 H (0.52-1.04) mg/dL Ferritin (10.0-291.0) ng/mL RBC Folate (280 - 791) ng/mL Microbiology - Last 24 Hours (Table) 09/01/17 21:30 Urine Culture - Final Urine,Catheterized Escherichia coli Assessment and Plan Plan: Acute kidney injury on CKD stage 4 Improving Avoid nephrotoxic meds Monitor urine output Follow-up renal function Continue IV fluid hydration Consult nephro Anemia secondary to chronic disease currently stable slight decline Stable Anemia workup, iron profile, ferritin, LDH and ferritin all indicate anemia of chronic disease, likely CKD Consult nephro for possible procrit shots-- pending. Continue to monitor CBC Urinary tract infection On abx. Decreased mobility secondary to left hip pain no acute fractures/Osteoarthritis Physical therapy and occupational therapy recommending ALISA Fall precautions Hypertension currently stable Continue home meds DVT prophylaxis heparin subcu 3 times a day Diet as tolerated
[2017-09-04] MEDS ORDERED: DARBEPOETIN ALFA 40 MCG/0.4 ML SYRINGE SQ SCH (12:00)
--- NOTE | 2017-09-04 13:51 | P.NPCON ---
History of Present Illness - Reason for Consult acute renal failure - History of Present Illness Reason for consultation: Acute kidney injury History of present illness: Patient is a 81-year-old female seen in renal consultation for acute kidney injury on chronic kidney disease. It appears patient has chronic kidney disease stage III with baseline creatinine near 2. Her creatinine was elevated at 2.4 on admission and is 2.17 today. She's currently receiving normal saline at 100 mL an hour. She is noted to have a UTI with urine culture positive for E. coli and is maintained on IV antibiotics. Patient was taking Lasix at home which are currently held. Patient presented to the hospital after she sustained a fall in the bathroom while trying to get some towels. No evidence of fracture noted. She's currently sitting up in chair. Admits to good urine output. Denies hematuria or dysuria. Denies use of NSAIDs. Denies vomiting. She does have intermittent diarrhea 2-3 times a week. Oral intake is fair. Hemodynamically stable. Vital signs are stable. General: The patient appeared well nourished and normally developed. HEENT: Head exam is unremarkable. Neck is without jugular venous distension. LUNGS: Lungs are clear to auscultation and percussion. Breath sounds decreased. HEART: Rate and Rhythm are regular. First and second heart sounds normal. No murmurs, rubs or gallops. ABDOMEN: Abdominal exam reveals normal bowel sounds. Non-tender and non- distended. No evidence of peritonitis. EXTREMITITES: No clubbing, cyanosis, or edema. Past Medical History Past Medical History: Coronary Artery Disease (CAD), Cancer, GERD/Reflux, Hearing Disorder / Deafness, Hyperlipidemia, Hypertension, Osteoarthritis (OA), Renal Disease, Respiratory Disorder Additional Past Medical History / Comment(s): NIDDM now diet controlled after wt loss, L ankle/foot partial amp with surgery, neuropathy L foot, past R foot ulcers now healed, R breast cancer with surgery only, bilateral CHER-AE HEIGHTS, UTI with sepsis, CKD, chronic anemia, bilateral sciatica, arthritis multiple joints. History of Any Multi-Drug Resistant Organisms: MRSA Date of last positivie culture/infection: 06/02/15 MDRO Source:: Right Foot Past Surgical History: Adenoidectomy, Appendectomy, Bowel Resection, Breast Surgery, Heart Catheterization With Stent, Hernia Repair, Orthopedic Surgery, Tonsillectomy, Tubal Ligation Additional Past Surgical History / Comment(s): 2006 L foot surgery for partial amp, umbilical hernia repair, R mastectomy, colon resection (pt cannot recall reason), D&C, bilateral cataract removals/lens implants, colonoscopies. Past Anesthesia/Blood Transfusion Reactions: No Reported Reaction Date of Last Stent Placement:: 2002 Smoking Status: Never smoker - Past Family History Mother Family Medical History: CVA/TIA Brother(s) Family Medical History: Cancer Father History Unknown: Yes Additional Family Medical History / Comment(s): Pt did not have much contact with her father. Medications and Allergies Home Medications Medication Instructions Recorded Confirmed Type Aspirin [Adult Low Dose Aspirin EC] 81 mg PO DAILY 05/23/15 09/02/17 History Cholecalciferol [Vitamin D3] 1,000 unit PO DAILY 05/23/15 09/02/17 History Clopidogrel [Plavix] 75 mg PO DAILY 05/23/15 09/02/17 History Lovastatin [Mevacor] 20 mg PO DAILY 05/23/15 09/02/17 History Metoprolol Tartrate [Lopressor] 50 mg PO DAILY 05/23/15 09/02/17 History HYDROcodone/APAP 5-325MG [[place] 1 tab PO BID PRN 05/26/15 09/02/17 History 5-325] Furosemide [Lasix] 20 mg PO DAILY 09/02/17 09/02/17 History Gabapentin [Neurontin] 300 mg PO BID 09/02/17 09/02/17 History Ranitidine HCl [Zantac] 300 mg PO DAILY 09/02/17 09/02/17 History Vits A,C,E/Lutein/Minerals 1 tab PO DAILY 09/02/17 09/02/17 History [Ocuvite with Lutein Tablet] Allergies Allergy/AdvReac Type Severity Reaction Status Date / Time Penicillins Allergy Anaphylaxis Verified 09/01/17 20:15 procaine HCl [From Novocain] Allergy Unknown Verified 09/01/17 20:15 alprazolam [From Xanax] AdvReac Hallucinati Verified 09/01/17 20:15 ons Physical Exam Vitals: Vital Signs Temp Pulse Resp BP Pulse Ox 09/04/17 07:42 97.1 F L 69 17 129/56 98 09/03/17 23:00 97.0 F L 66 18 117/62 97 09/03/17 14:54 96.1 F L 65 17 130/59 98 Intake and Output 09/03/17 09/04/17 09/04/17 22:59 06:59 14:59 Intake Total 800 Balance 800 Intake: Intake, IV Titration 800 Amount Sodium Chloride 0.9% 1, 800 000 ml @ 100 mls/hr IV . Q10H [facility] Rx#:[id number] Other: Voiding Method Bedpan Bedside Commode Diaper # Voids 5 Results - Lab Results Most recent lab results Calcium 9.1 mg/dL (8.4-10.2) 09/04/17 08:23 Phosphorus 4.3 mg/dL (2.5-4.5) 09/04/17 08:23 Magnesium 1.7 mg/dL (1.6-2.3) 09/04/17 08:23 09/04/17 08:23 09/04/17 08:23 Assessment and Plan Plan: Assessment: 1. Nonoliguric acute kidney injury mostly prerenal improving with IV hydration. Creatinine 2.4 on admission and is down to 2.17 today. 2. Chronic kidney disease stage IV secondary to nephrosclerosis with baseline creatinine near 2. 3. UTI urine culture positive for E. coli maintained on antibiotics. 4. Anemia of chronic kidney disease. Iron replete. 5. Metabolic acidosis secondary to acute kidney injury and IV fluids. 6. Hypertension with chronic kidney disease. Controlled. 7. Status post fall. No evidence of fracture noted. Plan: I will decrease a bit of normal saline to 70 mL an hour. Add Aranesp. Continue to hold diuretics for now. Add oral sodium bicarbonate 650 mg twice daily. Check renal ultrasound. Repeat electrolytes in the morning. She will need to follow-up as an outpatient in 1-2 weeks postdischarge. Thank you for the consultation. I will continue to follow the patient with you during her hospital stay.
[2017-09-04] MEDS: SODIUM BICARBONATE TAB 650 MG TAB PO SCH ×2 (16:23→20:24)
--- NOTE | 2017-09-04 16:45 | US ---
EXAMINATION TYPE: US kidneys/renal and bladder DATE OF EXAM: 09/04/2017 COMPARISON: Prior renal ultrasound July 21, [address] CT abdomen and pelvis June 28, 2015 CLINICAL HISTORY: [email or web address]. BENSON, exam done portable. EXAM MEASUREMENTS: Right Kidney: 11.2 x 4.9 x 4.7 cm Left Kidney: 10.8 x 4.4 x 4.2 cm Right Kidney: multiple small cortical cysts with largest measuring 1.5cm Left Kidney: multiple small cortical cysts with largest measuring 1.5cm Bladder: not fully distended, appears wnl as seen Bilateral Jets seen: no Incidental: cholelithiasis There is no evidence for hydronephrosis at this point in time. No nephrolithiasis is seen. No suspi cious solid masses are identified on images saved. A few small simple appearing cysts with cortical thinning bilaterally is noted. The urinary bladder is anechoic. Bilateral ureteral jets are not seen . IMPRESSION: No hydronephrosis is evident bilaterally. Findings consistent with product of chronic medical renal d isease redemonstrated.
[2017-09-05 01:41] VITALS: PULSE 71; RESP 20
[2017-09-05] MEDS: HYDROcodone/APAP 5-325MG 1 EACH TAB PO PRN (02:57)
[2017-09-05] MEDS: SODIUM CHLORIDE 0.9% 1,000 ML IV SCH (05:33)
[2017-09-05 07:16] VITALS: BP 108/40; TEMP 98.7
[2017-09-05] MEDS: HEPARIN SODIUM,PORCINE 5,000 UNIT/ML 1 ML VIAL SQ SCH (08:29)
[2017-09-05] MEDS: METOPROLOL TARTRATE 50 MG TAB PO SCH (08:30)
[2017-09-05] MEDS: ASPIRIN 81 MG PO SCH (08:30)
[2017-09-05] MEDS: ATORVASTATIN 10 MG TAB PO SCH (08:30)
[2017-09-05] MEDS: SODIUM BICARBONATE TAB 650 MG TAB PO SCH (08:30)
[2017-09-05] MEDS: CLOPIDOGREL 75 MG TAB PO SCH (08:30)
[2017-09-05] MEDS: VIT A,C & E-LUTEIN-MINERALS 1 EACH TAB PO SCH (08:31)
[2017-09-05 08:32] LABS: Calcium 8.9 mg/dL (8.4-10.2); Magnesium 1.6 mg/dL (1.6-2.3); Phosphorus 4.5 mg/dL (2.5-4.5); Potassium 5.5 mmol/L (3.5-5.1)
[2017-09-05] MEDS ORDERED: LEVOFLOXACIN 500 MG TAB PO SCH ×2 (09:00)
[2017-09-05] MEDS ORDERED: SODIUM POLYSTYRENE SULFONATE 15 GM/60 ML BOTTLE PO STA (10:26)
--- NOTE | 2017-09-05 11:05 | P.DS ---
Providers Date of admission: 09/02/17 00:52 Expected date of discharge: 09/05/17 Attending physician: Gera Barrios MD Consults: 09/03/17 11:44 Consult Physician Routine Consulting Provider: Con Mcclellan Consult Reason/Comments: renal failure Do you want consulting provider notified?: Yes Primary care physician: Isabelle Dailey MD Hospital Course: 81-year-old female with history of hypertension presented to the ER with left hip pain. Patient reported that at baseline she has difficulties with walking, normally she uses a walker. She has been feeling weak. She lost her balance and twisted her legs while trying to reach out for a towel. She did not fall. Initially had no pain but later she started having severe throbbing left hip pain, 10 out of 10 in severity, movement was making it worse. Because of the pain she couldn't get up and required 2 people to get her to the hospital. She denied any numbness and tingling other than her baseline neuropathy. No head injury denies or any loss of consciousness. Denied any other traumas. She denied taking any blood thinners. Denied any bleeding. Denied any chest pain or shortness of breath, nausea or vomiting. Further workup and imaging in the ED suggested acute on chronic stage IV renal failure in addition to urinary tract infection, plain X-ray of the left hip showed no acute fractures. Patient was subsequently admitted to the hospital. Patient was started on treatment with IV fluids, Levaquin 750 mg every 48 hours. She also received physical therapy and rehabilitation, occupational therapy during the hospitalization. Her creatinine was in was 2.4 with baseline around 2. She does not follow up with her kidney specialist. Of note patient was started on Lasix recently for leg swelling, that was held. Renal function improved with IV hydration. Patient was also seen by nephrology service who started patient on bicarbonate replacement. Patient also has chronic anemia with baseline hemoglobin between 7 and 8, anemia workup was sent and she was found to have anemia of chronic disease likely secondary to chronic kidney disease. Nephrology started patient on aranesp injections every week. She was not transfused packed red blood cells. Due to significant weakness physical therapy recommended that patient goes to rehabilitation. Referrals were made by care management. Patient will be discharged to [facility] for rehab in a stable condition. 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 Discharge diagnoses Acute renal failure on chronic kidney disease stage 4 Acute urinary tract infection General weakness Anemia of chronic disease Patient Condition at Discharge: Good Plan - Discharge Summary Discharge Rx Participant: Yes New Discharge Prescriptions: New Acetaminophen Tab [Tylenol] 650 mg PO Q6HR PRN tab PRN Reason: Mild Pain Or Fever > 100.5 Darbepoetin [place] [Aranesp] 40 mcg SQ Q7D #5 syringe Levofloxacin [Levaquin] 500 mg PO Q48H #5 tab Sodium Bicarbonate Tab 650 mg PO BID #60 tab Continue Metoprolol Tartrate [Lopressor] 50 mg PO DAILY Lovastatin [Mevacor] 20 mg PO DAILY Cholecalciferol [Vitamin D3] 1,000 unit PO DAILY Clopidogrel [Plavix] 75 mg PO DAILY Aspirin [Adult Low Dose Aspirin EC] 81 mg PO DAILY HYDROcodone/APAP 5-325MG [[place] 5-325] 1 tab PO BID PRN PRN Reason: Pain Gabapentin [Neurontin] 300 mg PO BID Ranitidine HCl [Zantac] 300 mg PO DAILY Vits A,C,E/Lutein/Minerals [Ocuvite with Lutein Tablet] 1 tab PO DAILY Discontinued Furosemide [Lasix] 20 mg PO DAILY Discharge Medication List Aspirin [Adult Low Dose Aspirin EC] 81 mg PO DAILY 05/23/15 [History] Cholecalciferol [Vitamin D3] 1,000 unit PO DAILY 05/23/15 [History] Clopidogrel [Plavix] 75 mg PO DAILY 05/23/15 [History] Lovastatin [Mevacor] 20 mg PO DAILY 05/23/15 [History] Metoprolol Tartrate [Lopressor] 50 mg PO DAILY 05/23/15 [History] HYDROcodone/APAP 5-325MG [[place] 5-325] 1 tab PO BID PRN 05/26/15 [History] Gabapentin [Neurontin] 300 mg PO BID 09/02/17 [History] Ranitidine HCl [Zantac] 300 mg PO DAILY 09/02/17 [History] Vits A,C,E/Lutein/Minerals [Ocuvite with Lutein Tablet] 1 tab PO DAILY 09/02/17 [History] Acetaminophen Tab [Tylenol] 650 mg PO Q6HR PRN tab 09/05/17 [Rx] Darbepoetin [place] [Aranesp] 40 mcg SQ Q7D #5 syringe 09/05/17 [Rx] Levofloxacin [Levaquin] 500 mg PO Q48H #5 tab 09/05/17 [Rx] Sodium Bicarbonate Tab 650 mg PO BID #60 tab 09/05/17 [Rx] Follow up Appointment(s)/Referral(s): Isabelle Dailey MD [Primary Care Provider] - 1-2 days Con Mcclellan DO [STAFF PHYSICIAN] - 1 Week
[2017-09-05] MEDS ORDERED: DEXTROSE 50%-WATER 50 ML SYRINGE IVP STA (11:06)
[2017-09-05] MEDS ORDERED: INSULIN REGULAR 100 UNIT/ML VIAL IV ONE (11:06)
--- NOTE | 2017-09-05 11:41 | P.PN ---
Subjective Patient is seen in follow-up for acute kidney injury on chronic kidney disease. Patient has chronic kidney disease stage IV with basic creatinine near 2. Creatinine is down to 1.93 today. She is currently sitting up in chair. Oral intake is good. Admits to good urine output. No vomiting or diarrhea. Currently being treated for E. coli UTI. Vital signs are stable. General: The patient appeared well nourished and normally developed. HEENT: Head exam is unremarkable. Neck is without jugular venous distension. LUNGS: Lungs are clear to auscultation and percussion. Breath sounds decreased. HEART: Rate and Rhythm are regular. First and second heart sounds normal. No murmurs, rubs or gallops. ABDOMEN: Abdominal exam reveals normal bowel sounds. Non-tender and non- distended. No evidence of peritonitis. EXTREMITITES: No clubbing, cyanosis, or edema. Objective - Vital Signs Vital signs: Vital Signs Temp 98.7 F 09/05/17 06:20 Pulse 71 09/05/17 06:20 Resp 20 09/05/17 06:20 BP 108/40 09/05/17 06:20 Pulse Ox 96 09/05/17 06:20 Intake & Output 09/04/17 09/05/17 09/05/17 18:59 06:59 18:59 Intake Total 300 200 Balance 300 200 Weight 85.275 kg Intake: Oral 300 200 Other: Voiding Method Bedside Commode Bedside Commode # Voids 2 2 - Labs CBC & Chem 7: 09/04/17 08:23 09/05/17 07:36 Labs: Abnormal Lab Results - Last 24 Hours (Table) 09/05/17 Range/Units 07:36 Potassium 5.5 H (3.5-5.1) mmol/L Chloride 111 H (98-107) mmol/L Carbon Dioxide 20 L (22-30) mmol/L BUN 33 H (7-17) mg/dL Creatinine 1.93 H (0.52-1.04) mg/dL Glucose 101 H (74-99) mg/dL Microbiology - Last 24 Hours (Table) 09/01/17 21:30 Urine Culture - Final Urine,Catheterized Escherichia coli Assessment and Plan Plan: Assessment: 1. Nonoliguric acute kidney injury mostly prerenal improving with IV hydration. Creatinine 2.4 on admission and is down to 1.93 today. 2. Chronic kidney disease stage IV secondary to nephrosclerosis with baseline creatinine near 2. No evidence of hydronephrosis. Cortical thinning noted suggestive of underlying chronic kidney disease. 3. UTI urine culture positive for E. coli maintained on antibiotics. 4. Anemia of chronic kidney disease. Iron replete. 5. Metabolic acidosis secondary to acute kidney injury and IV fluids. 6. Hypertension with chronic kidney disease. Controlled. 7. Status post fall. No evidence of fracture noted. 8. Mild hyperkalemia secondary to metabolic acidosis and acute kidney injury. Plan: Continue normal saline at 70 mL an hour while in the hospital. Maintain Aranesp. Continue to hold diuretics for now. Maintain oral sodium bicarbonate 650 mg twice daily. 10 units of IV regular insulin with amp of D50 now. Repeat potassium level this evening. She will need to follow-up as an outpatient in 1-2 weeks postdischarge. .
[2017-09-05] MEDS: MAGNESIUM SULFATE-D5W PMX 1 GM in DEXTROSE/WATER 1 100ML.BAG IVPB SCH ×2 (12:19→13:19)
[2017-09-06] MEDS ORDERED: LEVOFLOXACIN 500 MG TAB PO SCH (09:00)
== END 2017-09-05 14:45 | DRG 683 ==
LOC: EC 19:59 → 5MS5E 09-02 00:52 → 4MS4W 09-02 15:34
PROVIDERS: ADMIT Internal Medicine; ATTEND Internal Medicine
DX: N17.9 Acute kidney failure, unspecified (principal); E87.2 Acidosis; N39.0 Urinary tract infection, site not specified; N18.4 Chronic kidney disease, stage 4 (severe); I12.9 Hypertensive chronic kidney disease with stage 1 through stage 4 chronic kidney disease, or unspecified chronic kidney disease; D63.1 Anemia in chronic kidney disease; E11.22 Type 2 diabetes mellitus with diabetic chronic kidney disease; E11.42 Type 2 diabetes mellitus with diabetic polyneuropathy; B96.20 Unspecified Escherichia coli [E. coli] as the cause of diseases classified elsewhere; E78.5 Hyperlipidemia, unspecified; E87.5 Hyperkalemia; H91.90 Unspecified hearing loss, unspecified ear; I25.10 Atherosclerotic heart disease of native coronary artery without angina pectoris; K21.9 Gastro-esophageal reflux disease without esophagitis; M15.9 Polyosteoarthritis, unspecified; R32 Unspecified urinary incontinence; Y92.002 Bathroom of unspecified non-institutional (private) residence as the place of occurrence of the external cause; X50.0XXA Overexertion from strenuous movement or load, initial encounter; Z79.02 Long term (current) use of antithrombotics/antiplatelets; Z79.82 Long term (current) use of aspirin; Z85.3 Personal history of malignant neoplasm of breast; Z90.11 Acquired absence of right breast and nipple; Z95.5 Presence of coronary angioplasty implant and graft; Z79.899 Other long term (current) drug therapy; Z88.6 Allergy status to analgesic agent; Z88.0 Allergy status to penicillin; Z88.8 Allergy status to other drugs, medicaments and biological substances; M25.552 Pain in left hip; Z98.42 Cataract extraction status, left eye; Z98.41 Cataract extraction status, right eye; Z96.1 Presence of intraocular lens; Z86.14 Personal history of Methicillin resistant Staphylococcus aureus infection; R53.1 Weakness; Z90.49 Acquired absence of other specified parts of digestive tract
CPT/HCPCS: 36415; 73502; 76770; 80048; 81001; 82607; 82728; 82747; 83540; 83550; 83615; 83735; 84100; 85025; 85045; 87077; 87086; 87186; 96365; 96372; 96375; 99285

== ENCOUNTER 2017-12-20 16:57 | Emergency (ER) | payer MEDICARE, BC ==
--- NOTE | 2017-12-20 17:22 | ED ---
General Adult HPI - General Chief complaint: Extremity Problem,Nontraumatic Stated complaint: Swollen Legs Source: patient Mode of arrival: wheelchair Limitations: no limitations - History of Present Illness Initial comments: Dictation was produced using [employer] dictation software. please excuse any grammatical, word or spelling errors. Chief Complaint: 82 year old female past medical history of coronary artery disease, dyslipidemia, kidney disease presents with left Sheri swelling 2 days. History of Present Illness: Patient is 82-year-old female multiple comorbidities presents with left lower extremity swelling that has been ongoing for the last 2 days. Patient was seen by her home health care nurse told her to come to the emergency department for concerns of deep venous thrombosis. Patient has ever having had a blood clot before. Denies any history of anticoagulation. Patient does have multiple surgeries to the bilateral lower extremities. She does report pain to her left groin and calf region. Denies any constitutional symptoms. No chest pain or shortness of breath. She is sedentary requiring assist with ambulation at baseline. The ROS documented in this emergency department record has been reviewed and confirmed by me. Those systems with pertinent positive or negative responses have been documented in the HPI. All other systems are other negative and/or noncontributory. - Related Data Home Medications Medication Instructions Recorded Confirmed Aspirin [Adult Low Dose Aspirin EC] 81 mg PO DAILY 05/23/15 12/20/17 Clopidogrel [Plavix] 75 mg PO DAILY 05/23/15 12/20/17 Lovastatin [Mevacor] 20 mg PO DAILY 05/23/15 12/20/17 Metoprolol Tartrate [Lopressor] 50 mg PO DAILY 05/23/15 12/20/17 HYDROcodone/APAP 5-325MG [[place] 1 tab PO Q12H PRN 05/26/15 12/20/17 5-325] Gabapentin [Neurontin] 300 mg PO TID 09/02/17 12/20/17 Docusate [Colace] 100 mg PO BID 12/20/17 12/20/17 Ferrous Sulfate [Feosol] 325 mg PO BID 12/20/17 12/20/17 Furosemide [Lasix] 20 mg PO DAILY 12/20/17 12/20/17 Ondansetron HCl [Zofran] 4 mg PO Q8H PRN 12/20/17 12/20/17 Sennosides/Docusate Sodium [Colace 1 tab PO DAILY 12/20/17 12/20/17 2-in-1 Tablet] Previous Rx's Medication Instructions Recorded Sodium Bicarbonate Tab 650 mg PO BID #60 tab 09/05/17 Nitrofurantoin Monohyd/M-Cryst 100 mg PO Q12HR 5 Days #10 cap 12/20/17 [Macrobid] Allergies Allergy/AdvReac Type Severity Reaction Status Date / Time Penicillins Allergy Anaphylaxis Verified 12/20/17 17:38 procaine HCl [From Novocain] Allergy Unknown Verified 12/20/17 17:38 alprazolam [From Xanax] AdvReac Hallucinati Verified 12/20/17 17:38 ons Review of Systems ROS Statement: Those systems with pertinent positive or pertinent negative responses have been documented in the HPI. ROS Other: All systems not noted in ROS Statement are negative. Past Medical History Past Medical History: Coronary Artery Disease (CAD), Cancer, GERD/Reflux, Hearing Disorder / Deafness, Hyperlipidemia, Hypertension, Osteoarthritis (OA), Renal Disease, Respiratory Disorder Additional Past Medical History / Comment(s): NIDDM now diet controlled after wt loss, L ankle/foot partial amp with surgery, neuropathy L foot, past R foot ulcers now healed, R breast cancer with surgery only, bilateral [place], UTI with sepsis, CKD, chronic anemia, bilateral sciatica, arthritis multiple joints. History of Any Multi-Drug Resistant Organisms: MRSA Date of last positivie culture/infection: 06/02/15 MDRO Source:: Right Foot Past Surgical History: Adenoidectomy, Appendectomy, Bowel Resection, Breast Surgery, Heart Catheterization With Stent, Hernia Repair, Orthopedic Surgery, Tonsillectomy, Tubal Ligation Additional Past Surgical History / Comment(s): 2006 L foot surgery for partial amp, umbilical hernia repair, R mastectomy, colon resection (pt cannot recall reason), D&C, bilateral cataract removals/lens implants, colonoscopies. Past Anesthesia/Blood Transfusion Reactions: No Reported Reaction Date of Last Stent Placement:: 2002 Past Psychological History: No Psychological Hx Reported Smoking Status: Never smoker Past Alcohol Use History: None Reported Past Drug Use History: None Reported - Past Family History Mother Family Medical History: CVA/TIA Brother(s) Family Medical History: Cancer Father History Unknown: Yes Additional Family Medical History / Comment(s): Pt did not have much contact with her father. General Exam - General Exam Comments Initial Comments: PHYSICAL EXAM: General Impression: Alert and oriented x3, not in acute distress HEENT: Normocephalic atraumatic, extra-ocular movements intact, pupils equal and reactive to light bilaterally, mucous membranes moist. Cardiovascular: Heart regular rate and rhythm, S1&S2 audible, no murmurs, rubs or gallops Chest: Lungs clear to auscultation bilaterally, no rhonchi, no wheeze, no rales Abdomen: Bowel sounds present, abdomen soft, non-tender, non-distended, no organomegaly Musculoskeletal: Pulses present and equal in all extremities, nonpitting edema to the left lower extremity, pain of the entire left lower extremity with palpation, asymmetrical swelling of the left lower extremity compared to the right, tenderness of palpation over the left groin region Motor: Power 5/5 bilaterally, no focal deficits noted Neurological: CN II-XII grossly intact, no focal motor or sensory deficits noted Skin: Intact with no visualized rashes Psych: Normal affect and mood Limitations: no limitations Course Vital Signs 12/20/17 16:58 Temperature 97.8 F Pulse Rate 65 Respiratory 18 Rate Blood Pressure 134/56 O2 Sat by Pulse 97 Oximetry Medical Decision Making - Medical Decision Making ED course: 82-year-old female with multiple comorbid disease presents with chief complaint of left lower extremity swelling and pain. Vital signs upon arrival are within acceptable limits. Patient has a chest pain or shortness of breath. No history of blood clots. No recent travel or recent surgery.Laboratory evaluation obtained. Patient has baseline hemoglobin of 8.5. Coag panel is unremarkable. Metabolic seems. Patient's baseline. Urinalysis shows findings to suggest urinary tract infection. Hip x-ray shows no acute processes. Venous Doppler does not show any findings to suggest deep venous thrombosis. Chest x-ray is unremarkable. Patient told that she may need repeat ultrasound of the leg and one week. Otherwise she is told to follow -up with primary care physician early next week. Patient prescription for antibiotics for urinary tract infection. Urine sent for culture. Advised to return with worsening symptoms or new onset symptoms of chest pain or shortness of breath. More history was obtained from patient. It appears that patient has been ambulatory more than baseline and has been sitting in a chair more frequently. This would suggest that patient's symptoms are caused by dependent edema. Discussed with patient and road machine operator that there could be a venous thrombosis that's more proximal than what can be seen on ultrasound prompting close follow-up outpatient. - Lab Data Result diagrams: 12/20/17 17:29 12/20/17 17:29 Lab Results 12/20/17 12/20/17 12/20/17 Range/Units 17:29 17:29 17:29 WBC 6.9 (3.8-10.6) k/uL RBC 2.57 L (3.80-5.40) m/uL Hgb 8.5 L (11.4-16.0) gm/dL Hct 27.0 L (34.0-46.0) % MCV 105.2 H (80.0-100.0) fL MCH 33.2 (25.0-35.0) pg MCHC 31.5 (31.0-37.0) g/dL RDW 14.3 (11.5-15.5) % Plt Count 485 H (150-450) k/uL Neutrophils % (Manual) 37 % Lymphocytes % (Manual) 48 % Monocytes % (Manual) 12 % Eosinophils % (Manual) 3 % Neutrophils # (Manual) 2.55 (1.3-7.7) k/uL Lymphocytes # (Manual) 3.31 (1.0-4.8) k/uL Monocytes # (Manual) 0.83 (0-1.0) k/uL Eosinophils # (Manual) 0.21 (0-0.7) k/uL Nucleated RBCs 0 (0-0) /100 WBC Manual Slide Review Performed Reactive Lymphocytes Present Polychromasia Present Macrocytosis Moderate PT (9.0-12.0) sec INR (<1.2) Sodium 141 (137-145) mmol/L Potassium 4.9 (3.5-5.1) mmol/L Chloride 104 (98-107) mmol/L Carbon Dioxide 26 (22-30) mmol/L Anion Gap 11 mmol/L BUN 41 H (7-17) mg/dL Creatinine 1.76 H (0.52-1.04) mg/dL Est GFR (CKD-EPI)AfAm 30 (>60 ml/min/1.73 sqM) Est GFR (CKD-EPI)NonAf 26 (>60 ml/min/1.73 sqM) Glucose 136 H (74-99) mg/dL Calcium 9.3 (8.4-10.2) mg/dL Troponin I (0.000-0.034) ng/mL NT-Pro-B Natriuret Pep 1110 pg/mL Urine Color Urine Appearance (Clear) Urine pH (5.0-8.0) Ur Specific [place] (1.001-1.035) Urine Protein (Negative) Urine Glucose (UA) (Negative) Urine Ketones (Negative) Urine Blood (Negative) Urine Nitrite (Negative) Urine Bilirubin (Negative) Urine Urobilinogen (<2.0) mg/dL Ur Leukocyte Esterase (Negative) Urine RBC (0-5) /hpf Urine WBC (0-5) /hpf Ur Squamous Epith Cells (0-4) /hpf Urine Bacteria (None) /hpf Urine Mucus (None) /hpf 12/20/17 12/20/17 12/20/17 Range/Units 17:29 17:29 19:00 WBC (3.8-10.6) k/uL RBC (3.80-5.40) m/uL Hgb (11.4-16.0) gm/dL Hct (34.0-46.0) % MCV (80.0-100.0) fL MCH (25.0-35.0) pg MCHC (31.0-37.0) g/dL RDW (11.5-15.5) % Plt Count (150-450) k/uL Neutrophils % (Manual) % Lymphocytes % (Manual) % Monocytes % (Manual) % Eosinophils % (Manual) % Neutrophils # (Manual) (1.3-7.7) k/uL Lymphocytes # (Manual) (1.0-4.8) k/uL Monocytes # (Manual) (0-1.0) k/uL Eosinophils # (Manual) (0-0.7) k/uL Nucleated RBCs (0-0) /100 WBC Manual Slide Review Reactive Lymphocytes Polychromasia Macrocytosis PT 10.9 (9.0-12.0) sec INR 1.1 (<1.2) Sodium (137-145) mmol/L Potassium (3.5-5.1) mmol/L Chloride (98-107) mmol/L Carbon Dioxide (22-30) mmol/L Anion Gap mmol/L BUN (7-17) mg/dL Creatinine (0.52-1.04) mg/dL Est GFR (CKD-EPI)AfAm (>60 ml/min/1.73 sqM) Est GFR (CKD-EPI)NonAf (>60 ml/min/1.73 sqM) Glucose (74-99) mg/dL Calcium (8.4-10.2) mg/dL Troponin I <0.012 (0.000-0.034) ng/mL NT-Pro-B Natriuret Pep pg/mL Urine Color Light Yellow Urine Appearance Clear (Clear) Urine pH 6.0 (5.0-8.0) Ur Specific [place] 1.009 (1.001-1.035) Urine Protein 1+ H (Negative) Urine Glucose (UA) Negative (Negative) Urine Ketones Negative (Negative) Urine Blood Small H (Negative) Urine Nitrite Negative (Negative) Urine Bilirubin Negative (Negative) Urine Urobilinogen <2.0 (<2.0) mg/dL Ur Leukocyte Esterase Large H (Negative) Urine RBC 16 H (0-5) /hpf Urine WBC 84 H (0-5) /hpf Ur Squamous Epith Cells <1 (0-4) /hpf Urine Bacteria Rare H (None) /hpf Urine Mucus Rare H (None) /hpf Disposition Clinical Impression: Leg edema, UTI (urinary tract infection) Disposition: HOME SELF-CARE Condition: Good Prescriptions: Nitrofurantoin Monohyd/M-Cryst [Macrobid] 100 mg PO Q12HR 5 Days #10 cap Is patient prescribed a controlled substance at d/c from ED?: No Referrals: Isabelle Dailey MD [Primary Care Provider] - 1-2 days Time of Disposition: 20:29
[2017-12-20 18:05] LABS: INR 1.1 (<1.2); Prothrombin Time 10.9 sec (9.0-12.0)
[2017-12-20 18:06] LABS: HGB 8.5 gm/dL (11.4-16.0); MCH 33.2 pg (25.0-35.0); MCHC 31.5 g/dL (31.0-37.0); MCV 105.2 fL (80.0-100.0); Macrocytosis Moderate; Mean Platelet Volume 7.2; Platelet Count 485 k/uL (150-450); RBC 2.57 m/uL (3.80-5.40); RDW 14.3 % (11.5-15.5); WBC 6.9 k/uL (3.8-10.6)
[2017-12-20 18:08] LABS: Calcium 9.3 mg/dL (8.4-10.2); Potassium 4.9 mmol/L (3.5-5.1)
--- NOTE | 2017-12-20 18:30 | XR ---
EXAMINATION TYPE: XR Hip Complete LT DATE OF EXAM: 12/20/2017 COMPARISON: 09/01/2017 HISTORY: Left hip pain TECHNIQUE: 2 views FINDINGS: There is acetabular spurring. Proximal left femur appears intact. I see no fracture. IMPRESSION: Mild hypertrophic osteoarthritis. No fracture. No significant change.
--- NOTE | 2017-12-20 18:56 | XR ---
EXAMINATION TYPE: XR chest 1V DATE OF EXAM: 12/20/2017 COMPARISON: 09/10/2014 HISTORY: Left leg edema TECHNIQUE: Single frontal view of the chest is obtained. FINDINGS: Heart and mediastinum are normal for age. Lungs are clear of infiltrate. Costophrenic angl es are clear. There is no heart failure. Thoracic aorta is atheromatous. There is minimal pleural sca rring at the lung apices. IMPRESSION: No active cardiopulmonary disease. No change.
[2017-12-20 19:10] LABS: Eosinophils # (M) 0.21 k/uL (0-0.7); Lymphocytes # (M) 3.31 k/uL (1.0-4.8); Monocytes # (M) 0.83 k/uL (0-1.0); Neutrophils # (M) 2.55 k/uL (1.3-7.7); Neutrophils % (M) 37 %; Nucleated Red Blood Cells 0 /100 WBC (0-0); Total Cells Counted 100
[2017-12-20 19:11] LABS: Polychromasia Present; Reactive Lymphocytes Present
[2017-12-20 19:24] LABS: Appearance,Urine Clear (Clear); Bacteria,Urine Rare /hpf; Bilirubin,Urine Negative (Negative); Blood,Urine Small (Negative); Color,Urine Light Yellow; Glucose,Urine (UA) Negative (Negative); Ketones,Urine Negative (Negative); Leukocyte Esterase,Urine Large (Negative); Mucus,Urine Rare /hpf; Nitrite,Urine Negative (Negative); Protein,Urine 1+ (Negative); RBC,Urine 16 /hpf (0-5); Specific Gravity,Urine 1.009 (1.001-1.035); Squamous Epithelial Cell,Urine <1 /hpf (0-4); Urobilinogen,Urine <2.0 mg/dL (<2.0); WBC,Urine 84 /hpf (0-5)
--- NOTE | 2017-12-20 19:26 | US ---
EXAMINATION TYPE: US venous doppler duplex LE LT DATE OF EXAM: 12/20/2017 5:20 PM COMPARISON: NONE CLINICAL HISTORY: Pain. Swelling SIDE PERFORMED: left TECHNIQUE: The lower extremity deep venous system is examined utilizing real time linear array sonog lemuel with graded compression, doppler sonography and color-flow sonography. VESSELS IMAGED: External Iliac Vein (EIV) Common Femoral Vein Deep Femoral Vein Greater Saphenous Vein * Femoral Vein Popliteal Vein Small Saphenous Vein * Proximal Calf Veins (* superficial vessels) Left Leg: Negative for DVT IMPRESSION: Negative exam. No evidence of deep venous thrombosis in the left leg.
[2017-12-20 20:46] VITALS: BP 136/80; PULSE 64; RESP 16; TEMP 98
== END 2017-12-20 20:45 | disposition home or self-care (01) ==
LOC: EC 16:57
DX: N39.0 Urinary tract infection, site not specified (principal); R60.0 Localized edema; I25.10 Atherosclerotic heart disease of native coronary artery without angina pectoris; E78.5 Hyperlipidemia, unspecified; I12.9 Hypertensive chronic kidney disease with stage 1 through stage 4 chronic kidney disease, or unspecified chronic kidney disease; E11.22 Type 2 diabetes mellitus with diabetic chronic kidney disease; N18.9 Chronic kidney disease, unspecified; E11.40 Type 2 diabetes mellitus with diabetic neuropathy, unspecified; Z79.82 Long term (current) use of aspirin; Z79.02 Long term (current) use of antithrombotics/antiplatelets; Z79.899 Other long term (current) drug therapy; Z88.0 Allergy status to penicillin; Z88.8 Allergy status to other drugs, medicaments and biological substances; Z95.5 Presence of coronary angioplasty implant and graft; Z85.3 Personal history of malignant neoplasm of breast; Z90.11 Acquired absence of right breast and nipple
CPT/HCPCS: 36415; 71045; 73502; 80048; 81001; 83880; 84484; 85025; 85610; 87086; 93005; 99284

== ENCOUNTER → 2018-03-24 | Outpatient (CLI) | payer MEDICARE, BC ==
[2018-03-24 16:44] LABS: HCT 25.3 % (34.0-46.0); HGB 7.9 gm/dL (11.4-16.0); Hypochromasia Moderate; MCH 32.8 pg (25.0-35.0); MCHC 31.3 g/dL (31.0-37.0); MCV 104.8 fL (80.0-100.0); Macrocytosis Slight; Mean Platelet Volume 6.9; Platelet Count 605 k/uL (150-450); RBC 2.42 m/uL (3.80-5.40); RDW 14.2 % (11.5-15.5); WBC 11.6 k/uL (3.8-10.6)
[2018-03-24 18:36] LABS: Band Neutrophils % 5 %; Lymphocytes # (M) 4.06 k/uL (1.0-4.8); Monocytes # (M) 1.62 k/uL (0-1.0); Neutrophils % (M) 46 %; Nucleated Red Blood Cells 0 /100 WBC (0-0); Total Cells Counted 100
[2018-03-25 01:29] LABS: Potassium 5.2 mmol/L (3.5-5.5); Uric Acid 10.1 mg/dL (2.9-7.7)
[2018-03-25 02:24] LABS: Hemoglobin A1C 6.1 % (4.0-6.0)
== END ==
LOC: LABWHC1 14:53
PROVIDERS: ATTEND Family Medicine
DX: D63.1 Anemia in chronic kidney disease (principal); N18.4 Chronic kidney disease, stage 4 (severe); R73.01 Impaired fasting glucose
CPT/HCPCS: 36415; 80048; 83036; 84550; 85025

== ENCOUNTER 2018-03-25 14:35 | Inpatient (IN) | payer MEDICARE, BC ==
[2018-03-25] MEDS ORDERED: SODIUM CHLORIDE 0.9% 1,000 ML IV STA (16:58)
--- NOTE | 2018-03-25 17:14 | ED ---
Recheck HPI - General Chief Complaint: Recheck/Abnormal Lab/Rx Stated Complaint: abnormal labs-sent by Time Seen by Provider: 03/25/18 15:52 Source: patient, RN notes reviewed, old records reviewed Mode of arrival: wheelchair Limitations: no limitations - History of Present Illness Initial Comments: This is an 82-year-old female to the ER for evaluation of weakness, dizziness and altered mental status. Patient's of poor strain history obtained by caregiver who is present at bedside. Patient had outpatient lab throat was abnormal, states that there anemic MD Complaint: abnormal lab -: unknown Returns Today for: Called Because of Abnormal Lab/Test Symptoms Since Prior Visit: no new symptoms Context: planned re-check Associated Symptoms: malaise - Related Data Home Medications Medication Instructions Recorded Confirmed Aspirin [Adult Low Dose Aspirin EC] 81 mg PO DAILY 05/23/15 03/25/18 Clopidogrel [Plavix] 75 mg PO DAILY 05/23/15 03/25/18 Lovastatin [Mevacor] 20 mg PO DAILY 05/23/15 03/25/18 Metoprolol Tartrate [Lopressor] 50 mg PO DAILY 05/23/15 03/25/18 HYDROcodone/APAP 5-325MG [[place] 1 tab PO BID PRN 05/26/15 03/25/18 5-325] Gabapentin [Neurontin] 300 mg PO BID 09/02/17 03/25/18 Docusate [Colace] 100 mg PO BID 12/20/17 03/25/18 Ferrous Sulfate [Feosol] 325 mg PO AC-TID 12/20/17 03/25/18 Furosemide [Lasix] 20 mg PO DAILY 12/20/17 03/25/18 Allopurinol [Zyloprim] 100 mg PO DAILY 03/25/18 03/25/18 Cholecalciferol [Vitamin D3] 2,000 unit PO DAILY 03/25/18 03/25/18 Ranitidine HCl 300 mg PO DAILY 03/25/18 03/25/18 Vit C/E/Zn/Coppr/Lutein/Zeaxan 1 cap PO DAILY 03/25/18 03/25/18 [Preservision Areds 2 Softgel] Allergies Allergy/AdvReac Type Severity Reaction Status Date / Time Penicillins Allergy Anaphylaxis Verified 03/25/18 16:01 procaine HCl [From Novocain] Allergy Unknown Verified 03/25/18 16:01 alprazolam [From Xanax] AdvReac Hallucinati Verified 03/25/18 16:01 ons Review of Systems ROS Statement: Those systems with pertinent positive or pertinent negative responses have been documented in the HPI. ROS Other: All systems not noted in ROS Statement are negative. Past Medical History Past Medical History: Coronary Artery Disease (CAD), Cancer, GERD/Reflux, Hearing Disorder / Deafness, Hyperlipidemia, Hypertension, Osteoarthritis (OA), Renal Disease, Respiratory Disorder Additional Past Medical History / Comment(s): NIDDM now diet controlled after wt loss, L ankle/foot partial amp with surgery, neuropathy L foot, past R foot ulcers now healed, R breast cancer with surgery only, bilateral [place], UTI with sepsis, CKD, chronic anemia, bilateral sciatica, arthritis multiple joints. History of Any Multi-Drug Resistant Organisms: MRSA Date of last positivie culture/infection: 06/02/15 MDRO Source:: Right Foot Past Surgical History: Adenoidectomy, Appendectomy, Bowel Resection, Breast Surgery, Heart Catheterization With Stent, Hernia Repair, Orthopedic Surgery, Tonsillectomy, Tubal Ligation Additional Past Surgical History / Comment(s): 2006 L foot surgery for partial amp, umbilical hernia repair, R mastectomy, colon resection (pt cannot recall reason), D&C, bilateral cataract removals/lens implants, colonoscopies. Past Anesthesia/Blood Transfusion Reactions: No Reported Reaction Date of Last Stent Placement:: 2002 Past Psychological History: No Psychological Hx Reported Smoking Status: Never smoker Past Alcohol Use History: None Reported Past Drug Use History: None Reported - Past Family History Mother Family Medical History: CVA/TIA Brother(s) Family Medical History: Cancer Father History Unknown: Yes Additional Family Medical History / Comment(s): Pt did not have much contact with her father. General Exam Limitations: no limitations General appearance: alert, in no apparent distress Head exam: Present: atraumatic, normocephalic, normal inspection Eye exam: Present: normal appearance, PERRL, EOMI. Absent: scleral icterus, conjunctival injection, periorbital swelling ENT exam: Present: normal exam, mucous membranes moist Neck exam: Present: normal inspection. Absent: tenderness, meningismus, lymphadenopathy Respiratory exam: Present: normal lung sounds bilaterally. Absent: respiratory distress, wheezes, rales, rhonchi, stridor Cardiovascular Exam: Present: regular rate, normal rhythm, normal heart sounds. Absent: systolic murmur, diastolic murmur, rubs, gallop, clicks GI/Abdominal exam: Present: soft, normal bowel sounds. Absent: distended, tenderness, guarding, rebound, rigid Extremities exam: Present: normal inspection, full ROM, normal capillary refill. Absent: tenderness, pedal edema, joint swelling, calf tenderness Back exam: Present: normal inspection Neurological exam: Present: alert, oriented X3, CN II-XII intact Psychiatric exam: Present: normal affect, normal mood Skin exam: Present: warm, dry, intact, normal color. Absent: rash Course Vital Signs 03/25/18 14:45 Temperature 98.6 F Pulse Rate 77 Respiratory 18 Rate Blood Pressure 137/73 O2 Sat by Pulse 100 Oximetry - Reevaluation(s) Reevaluation #1: 03/25/18 17:28 Medical record is reviewed including prior lab tests Reevaluation #2: 03/25/18 17:28 Patient still feeling very weak Medical Decision Making - Medical Decision Making 82-year-old female the ER for evaluation. Patient resents today for evaluation of weakness and anemia renal failure dehydration. We'll admit for resuscitation and monitoring of hemoglobin Disposition Clinical Impression: Weakness, Anemia, CKD (chronic kidney disease), ARF (acute renal failure) Disposition: ADMITTED IP TO THIS HOSP Condition: Fair Is patient prescribed a controlled substance at d/c from ED?: No Referrals: Isabelle Dailey MD [Primary Care Provider] - 1-2 days
[2018-03-25 18:15] LABS: Appearance,Urine Turbid (Clear); Bacteria,Urine Many /hpf; Bilirubin,Urine Negative (Negative); Blood,Urine Moderate (Negative); Color,Urine Light Yellow; Glucose,Urine (UA) Negative (Negative); Ketones,Urine Negative (Negative); Leukocyte Esterase,Urine Large (Negative); Nitrite,Urine Negative (Negative); Protein,Urine 1+ (Negative); RBC,Urine 84 /hpf (0-5); Specific Gravity,Urine 1.013 (1.001-1.035); Urobilinogen,Urine <2.0 mg/dL (<2.0); WBC,Urine >182 /hpf (0-5)
[2018-03-25 18:49] LABS: HCT 23.8 % (34.0-46.0); HGB 7.5 gm/dL (11.4-16.0); Hypochromasia Slight; MCH 32.7 pg (25.0-35.0); MCHC 31.5 g/dL (31.0-37.0); MCV 103.8 fL (80.0-100.0); Macrocytosis Slight; Mean Platelet Volume 6.7; Platelet Count 541 k/uL (150-450); RBC 2.29 m/uL (3.80-5.40); RDW 14.3 % (11.5-15.5); WBC 13.9 k/uL (3.8-10.6)
[2018-03-25 19:02] LABS: Albumin 3.6 g/dL (3.5-5.0); Calcium 8.9 mg/dL (8.4-10.2); Magnesium 2.1 mg/dL (1.6-2.3); Phosphorus 5.3 mg/dL (2.5-4.5); Potassium 5.7 mmol/L (3.5-5.1); Total Bilirubin 0.5 mg/dL (0.2-1.3); Total Protein 7.4 g/dL (6.3-8.2)
[2018-03-25 19:05] LABS: Creatine Kinase <20 U/L (30-135)
[2018-03-25 19:18] LABS: Creatine Kinase MB 0.3 ng/mL (0.0-2.4); Troponin I <0.012 ng/mL (0.000-0.034)
[2018-03-25 19:23] LABS: Neutrophils # (M) 6.12 k/uL (1.3-7.7); Neutrophils % (M) 44 %
[2018-03-25 19:24] LABS: Eosinophils # (M) 0.28 k/uL (0-0.7); Nucleated Red Blood Cells 0 /100 WBC (0-0); Reactive Lymphocytes Present; Total Cells Counted 100
[2018-03-25] MEDS ORDERED: HYDROcodone/APAP 5-325MG 1 EACH TAB PO PRN (21:07)
[2018-03-25] MEDS ORDERED: DEXTROSE 50%-WATER 50 ML SYRINGE IVP STA (21:40)
[2018-03-25] MEDS ORDERED: INSULIN REGULAR 100 UNIT/ML VIAL IV ONE (21:40)
[2018-03-25] MEDS ORDERED: LEVOFLOXACIN 750MG-D5W PMX 750 MG in DEXTROSE/WATER 1 150ML.BAG IVPB SCH (22:00)
--- NOTE | 2018-03-25 22:16 | P.HPIM ---
History of Present Illness H&P Date: 03/25/18 (Delayed charting patient seen at 1730) Chief Complaint: weakness Patient is an 82 yo CF with a PMH of HTN, HLD, and CKD who presented to the emergency department at the direction of Dr. Dailey due to abnormal labs. Patient had been experiencing weakness and lethargy for 2 weeks. In the emergency department she underwent an evaluation. She was found to have BENSON, hyperkalemia, anemia, and a urinary tract infection. She was started on IVF and arrangements were made for admission. Patient seen and examined in the emergency department. She states that she has difficulty remembering things. Her traffic superintendent has left for the night. She states that for the last approximately 2 weeks she has been more tired and weak. She cannot stay awake and has been sleeping all the time. She reports generalized weakness. No focal weakness, numbness, or tingling. No aphasia or difficulty swallowing. She denies any changes in hair, skin, or nails. No shortness of breath, cough, cold, or fevers. Mild Chest discomfort she thinks but cannot recall where, when, or for how long. She states that she had a stent in past but does not see a service delivery director but is unsure if the stent is in her heart or else where. No nausea, vomiting, diarrhea, or constipation. No abdominal pain. No dysuria, urinary frequency, or dark urine. She report urinary incontinence on a chronic basis. She has seen nephro in the past but not on a chronic basis. She denies any recnet changes in medications. Her appetite was decreased about 1 week ago but has returned the last several days. She has caregivers come in daily to help with cleaning, meal prep, and medications. Her daughter elaina is her decision maker. She does walk with a walker. Review of Systems Complete review of systems obtained and pertinent positives and negatives as listed in HPI. Past Medical History Past Medical History: Coronary Artery Disease (CAD), Cancer, GERD/Reflux, Hearing Disorder / Deafness, Hyperlipidemia, Hypertension, Osteoarthritis (OA), Renal Disease, Respiratory Disorder Additional Past Medical History / Comment(s): NIDDM now diet controlled after wt loss, L ankle/foot partial amp with surgery, neuropathy L foot, past R foot ulcers now healed, R breast cancer with surgery only, bilateral [place], UTI with sepsis, CKD, chronic anemia, bilateral sciatica, arthritis multiple joints. History of Any Multi-Drug Resistant Organisms: MRSA Date of last positivie culture/infection: 06/02/15 MDRO Source:: Right Foot Past Surgical History: Adenoidectomy, Appendectomy, Bowel Resection, Breast Surgery, Heart Catheterization With Stent, Hernia Repair, Orthopedic Surgery, Tonsillectomy, Tubal Ligation Additional Past Surgical History / Comment(s): 2006 L foot surgery for partial amp, umbilical hernia repair, R mastectomy, colon resection (pt cannot recall reason), D&C, bilateral cataract removals/lens implants, colonoscopies. Past Anesthesia/Blood Transfusion Reactions: No Reported Reaction Date of Last Stent Placement:: 2002 Past Psychological History: No Psychological Hx Reported Smoking Status: Never smoker Past Alcohol Use History: None Reported Past Drug Use History: None Reported Additional History: Lives alone, has care gicers come in daily, uses a walker - Past Family History Mother Family Medical History: CVA/TIA Brother(s) Family Medical History: Cancer Father History Unknown: Yes Additional Family Medical History / Comment(s): Pt did not have much contact with her father. Medications and Allergies Home Medications Medication Instructions Recorded Confirmed Type Aspirin [Adult Low Dose Aspirin EC] 81 mg PO DAILY 05/23/15 03/25/18 History Clopidogrel [Plavix] 75 mg PO DAILY 05/23/15 03/25/18 History Lovastatin [Mevacor] 20 mg PO DAILY 05/23/15 03/25/18 History Metoprolol Tartrate [Lopressor] 50 mg PO DAILY 05/23/15 03/25/18 History HYDROcodone/APAP 5-325MG [[place] 1 tab PO BID PRN 05/26/15 03/25/18 History 5-325] Gabapentin [Neurontin] 300 mg PO BID 09/02/17 03/25/18 History Docusate [Colace] 100 mg PO BID 12/20/17 03/25/18 History Ferrous Sulfate [Feosol] 325 mg PO AC-TID 12/20/17 03/25/18 History Furosemide [Lasix] 20 mg PO DAILY 12/20/17 03/25/18 History Allopurinol [Zyloprim] 100 mg PO DAILY 03/25/18 03/25/18 History Cholecalciferol [Vitamin D3] 2,000 unit PO DAILY 03/25/18 03/25/18 History Ranitidine HCl 300 mg PO DAILY 03/25/18 03/25/18 History Vit C/E/Zn/Coppr/Lutein/Zeaxan 1 cap PO DAILY 03/25/18 03/25/18 History [Preservision Areds 2 Softgel] Allergies Allergy/AdvReac Type Severity Reaction Status Date / Time Penicillins Allergy Anaphylaxis Verified 03/25/18 16:01 procaine HCl [From Novocain] Allergy Unknown Verified 03/25/18 16:01 alprazolam [From Xanax] AdvReac Hallucinati Verified 03/25/18 16:01 ons Physical Exam Osteopathic Statement: *. No significant issues noted on an osteopathic structural exam other than those noted in the History and Physical/Consult. Vitals: Vital Signs Temp Pulse Resp BP Pulse Ox 03/25/18 18:30 58 L 21 129/64 99 03/25/18 18:00 63 21 138/35 87 L 03/25/18 17:30 62 19 144/56 98 03/25/18 17:00 64 20 130/56 97 03/25/18 16:57 130/56 97 03/25/18 14:45 98.6 F 77 18 137/73 100 Intake and Output 03/25/18 03/25/18 03/25/18 06:59 14:59 22:59 Other: Weight 86.183 kg - Constitutional General appearance: cooperative, no acute distress, obese - EENT Eyes: anicteric sclerae, EOMI, PERRLA, dentition normal, normal appearance ENT: hard of hearing, normal oropharynx, no pharyngeal erythema, no thrush - Neck Neck: no lymphadenopathy, normal ROM, no thyromegaly Carotids: bilateral: bruit absent Thyroid: bilateral: normal size - Respiratory no accessory muscle use Respiratory: bilateral: diminished, negative: prolonged expiration, prolonged inspiration - Cardiovascular Rhythm: regular Heart sounds: normal: S1, S2 Abnormal Heart Sounds: systolic murmur leg Peripheral Edema: right: Trace, left: 2+ (chronic per patient) posterior tibial Peripheral Pulses: bilateral: Normal - Gastrointestinal non tender to palpation, soft, non distended General gastrointestinal: no organomegaly - Integumentary Integumentary: no jaundiced, normal turgor, pale - Neurologic Neurologic: CNII-XII intact, focal deficits - Musculoskeletal muslce strength 4/5 b/l UE and lower extremities Musculoskeletal: generalized weakness, strength equal bilaterally - Psychiatric Psychiatric: A&O x's 3, appropriate affect, intact judgment & insight Results CBC & Chem 7: 03/25/18 18:30 03/25/18 18:30 Labs: Abnormal Lab Results - Last 24 Hours (Table) 03/25/18 03/25/18 03/25/18 Range/Units 17:45 18:30 18:30 WBC 13.9 H (3.8-10.6) k/uL RBC 2.29 L (3.80-5.40) m/uL Hgb 7.5 L (11.4-16.0) gm/dL Hct 23.8 L (34.0-46.0) % MCV 103.8 H (80.0-100.0) fL Plt Count 541 H (150-450) k/uL Lymphocytes # (Manual) 5.00 H (1.0-4.8) k/uL Monocytes # (Manual) 2.50 H (0-1.0) k/uL Potassium (3.5-5.1) mmol/L Chloride (98-107) mmol/L Carbon Dioxide (22-30) mmol/L BUN (7-17) mg/dL Creatinine (0.52-1.04) mg/dL Glucose (74-99) mg/dL Phosphorus (2.5-4.5) mg/dL Total Creatine Kinase <20 L (30-135) U/L Urine Appearance Turbid H (Clear) Urine Protein 1+ H (Negative) Urine Blood Moderate H (Negative) Ur Leukocyte Esterase Large H (Negative) Urine RBC 84 H (0-5) /hpf Urine WBC >182 H (0-5) /hpf Urine WBC Clumps Many H (None) /hpf Urine Bacteria Many H (None) /hpf 03/25/18 Range/Units 18:30 WBC (3.8-10.6) k/uL RBC (3.80-5.40) m/uL Hgb (11.4-16.0) gm/dL Hct (34.0-46.0) % MCV (80.0-100.0) fL Plt Count (150-450) k/uL Lymphocytes # (Manual) (1.0-4.8) k/uL Monocytes # (Manual) (0-1.0) k/uL Potassium 5.7 H (3.5-5.1) mmol/L Chloride 109 H (98-107) mmol/L Carbon Dioxide 18 L (22-30) mmol/L BUN 68 H (7-17) mg/dL Creatinine 2.84 H (0.52-1.04) mg/dL Glucose 115 H (74-99) mg/dL Phosphorus 5.3 H (2.5-4.5) mg/dL Total Creatine Kinase (30-135) U/L Urine Appearance (Clear) Urine Protein (Negative) Urine Blood (Negative) Ur Leukocyte Esterase (Negative) Urine RBC (0-5) /hpf Urine WBC (0-5) /hpf Urine WBC Clumps (None) /hpf Urine Bacteria (None) /hpf Thrombosis Risk Factor Assmnt - Choose All That Apply Each Factor Represents 1 point: Obesity (BMI >25), Swollen legs (current) Each Risk Factor Represents 3 Points: Age 75 years or older Thrombosis Risk Factor Assessment Total Risk Factor Score: 5 Thrombosis Risk Factor Assessment Level: High Risk Assessment and Plan Assessment: BENSON 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 - IVF, off lasix - avoid additional nephrotoxic agents - consult nephro - renal US UTI - levaquin - culture - IVF Weakness - likely related to UTI and BENSON - check thyroid, B12 Anemia - Iron studies - follow CBC - no signs of active bleeding, on ferrous sulfate at baseline and therefor hemococcult would be inaccurate Murmur - echo CAD - ASA, plavix DM2 with neuropathy - monitor glucose with AM blood work - A1C 6.2 03/24/18 - neurontin HTN,controlled - metorpolol - follow BP HLD - statin DVT prophylaxis: heparin Surrogate decision maker: daughter elaina Code status: full code, no prolonged vent Anticipated discharge: 2-[address]: home with home health A total of 65 minutes was spent on the complex care of this patient.
[2018-03-25] MEDS ORDERED: SODIUM POLYSTYRENE SULFONATE 15 GM/60 ML BOTTLE PO ONE (22:17)
[2018-03-25 23:30] LABS: Glucose,Whole Blood 145 mg/dL (75-99)
[2018-03-26] MEDS: HEPARIN SODIUM,PORCINE 5,000 UNIT/ML 1 ML VIAL SQ SCH ×3 (00:14→16:20)
[2018-03-26 07:19] LABS: Albumin 3.5 g/dL (3.5-5.0); Calcium 8.7 mg/dL (8.4-10.2); Potassium 5.2 mmol/L (3.5-5.1); Total Bilirubin 0.4 mg/dL (0.2-1.3); Total Protein 7.1 g/dL (6.3-8.2)
[2018-03-26] MEDS: FAMOTIDINE 20 MG TAB PO SCH (09:27)
[2018-03-26] MEDS: ATORVASTATIN 10 MG TAB PO SCH (09:27)
[2018-03-26] MEDS: METOPROLOL TARTRATE 50 MG TAB PO SCH (09:27)
[2018-03-26] MEDS: ASPIRIN 81 MG PO SCH (09:27)
[2018-03-26] MEDS: CLOPIDOGREL 75 MG TAB PO SCH (09:27)
[2018-03-26] MEDS: GABAPENTIN 300 MG CAP PO SCH ×2 (09:27→21:14)
[2018-03-26] MEDS: DOCUSATE 100 MG CAP PO SCH ×2 (09:27→21:14)
[2018-03-26 09:33] LABS: HCT 23.1 % (34.0-46.0); HGB 7.1 gm/dL (11.4-16.0); Hypochromasia Marked; MCH 32.6 pg (25.0-35.0); MCHC 30.6 g/dL (31.0-37.0); MCV 106.4 fL (80.0-100.0); Macrocytosis Moderate; Mean Platelet Volume 7.4; Platelet Count 516 k/uL (150-450); RBC 2.17 m/uL (3.80-5.40); RDW 14.2 % (11.5-15.5); WBC 12.6 k/uL (3.8-10.6)
--- NOTE | 2018-03-26 10:51 | ECHOF ---
Referral Reason:heart murmur MEASUREMENTS -------- HEIGHT: 152.4 cm WEIGHT: 86.2 kg BP: 151/73 RVIDd: 2.5 cm (< 3.3) IVSd: 1.2 cm (0.6 - 1.1) LVIDd: 4.3 cm (3.9 - 5.3) LVPWd: 1.3 cm (0.6 - 1.1) IVSs: 1.5 cm LVIDs: 3.1 cm LVPWs: 1.4 cm LA Diam: 4.4 cm (2.7 - 3.8) LAESV Index (A-L): 29.11 ml/m Ao Diam: 2.7 cm (2.0 - 3.7) AV Cusp: 1.4 cm (1.5 - 2.6) LA Diam: 3.5 cm (2.7 - 3.8) MV EXCURSION: 14.924 mm (> 18.000) MV EF SLOPE: 54 mm/s (70 - 150) EPSS: 0.5 cm MV E Braulio: 0.61 m/s MV DecT: 325 ms MV A Braulio: 1.26 m/s MV E/A Ratio: 0.49 AV maxP.64 mmHg AV meanP.07 mmHg RAP: 5.00 mmHg RVSP: 17.13 mmHg FINDINGS -------- Sinus rhythm. This was a technically adequate study. The left ventricular size is normal. There is mild concentric left ventricular hypertrophy. Overa ll left ventricular systolic function is low-normal with, an EF between 50 - 55 %. The right ventricle is normal in size. The left atrium is mildly dilated. LA is midly dilated 29-33ml/m2. The right atrial size is normal. Aortic valve is trileaflet and is moderately thickened. There is moderate aortic stenosis present. Peak/mean gradient across the Aortic Valve is 30.64mmHg / 15.07mmHg. Mild mitral annular calcification present. Mild mitral regurgitation is present. Mild tricuspid regurgitation present. There is no evidence of pulmonary hypertension. The right v entricular systolic pressure, as measured by Doppler, is 17.13mmHg. Trace/mild (physiologic) pulmonic regurgitation. The aortic root size is normal. There is no pericardial effusion. CONCLUSIONS -------- 1. The left ventricular size is normal. 2. There is mild concentric left ventricular hypertrophy. 3. Overall left ventricular systolic function is low-normal with, an EF between 50 - 55 %. 4. The right ventricle is normal in size. 5. The left atrium is mildly dilated. 6. LA is midly dilated 29-33ml/m2. 7. The right atrial size is normal. 8. Aortic valve is trileaflet and is moderately thickened. 9. There is moderate aortic stenosis present. 10. Peak/mean gradient across the Aortic Valve is 30.64mmHg / 15.07mmHg. 11. Mild mitral annular calcification present. 12. Mild mitral regurgitation is present. 13. Mild tricuspid regurgitation present. 14. There is no evidence of pulmonary hypertension. 15. The right ventricular systolic pressure, as measured by Doppler, is 17.13mmHg. 16. Trace/mild (physiologic) pulmonic regurgitation. 17. The aortic root size is normal. 18. There is no pericardial effusion. BLAST FURNACE KEEPER HELPER: Lorraine Mittal RDCS
[2018-03-26 11:02] LABS: Eosinophils # (M) 0.13 k/uL (0-0.7); Lymphocytes # (M) 1.13 k/uL (1.0-4.8); Monocytes # (M) 1.51 k/uL (0-1.0); Neutrophils # (M) 9.83 k/uL (1.3-7.7); Neutrophils % (M) 78 %; Nucleated Red Blood Cells 0 /100 WBC (0-0); Total Cells Counted 100
[2018-03-26 11:05] LABS: Anisocytosis (M) Present; Poikilocytosis (M) Present; Polychromasia Present
--- NOTE | 2018-03-26 11:09 | US ---
EXAMINATION TYPE: US renals and bladder DATE OF EXAM: 03/26/2018 COMPARISON: 09/04/2017 ultrasound kidneys CLINICAL HISTORY: BENSON on CKD. EXAM MEASUREMENTS: Right Kidney: 11.1 x 4.9 x 5.4 cm Left Kidney: 11.2 x 5.4 x 5.6 cm Right Kidney: 2 cysts: lat 1.6 x 1.3 x 1.9 cm and medial 1.7 x 1.3 x 1.4 cm Left Kidney: 2 cysts:upper lateral 1.3 x 0.9 x 2.1 cm and mid medial 1.3 x 1.1 x 1.4 cm Bladder: empty Bilateral Jets seen: no Cortical medullary differentiation is maintained. Kidneys show a near stable appearance. No hydroneph rosis or pathologic calcification. Cortical thinning shows a similar appearance. IMPRESSION: There is not a significant interval change.
--- NOTE | 2018-03-26 11:12 | P.PN ---
Subjective Progress Note Date: 03/26/18 Principal diagnosis: weakness Patient is an 82 yo CF with a PMH of HTN, HLD, and CKD who presented to the emergency department at the direction of Dr. Dailey due to abnormal labs. Patient had been experiencing weakness and lethargy for 2 weeks. In the emergency department she underwent an evaluation. She was found to have BENSON, hyperkalemia, anemia, and a urinary tract infection. She was started on IVF and arrangements were made for admission. She was placed on levaquin, given D50 and insulin and kayexelate for her hyperkalemia. Nephrology was consulted. Patient seen and examined at bedside. She complains of feeling more confused than normal. No nausea or vomiting. No diarrhea. NO SOB. exhausted from all her tests today. Doesn't remember meeting me yesterday. Objective - Vital Signs Vital signs: Vital Signs Temp 98.1 F 03/26/18 07:31 Pulse 79 03/26/18 07:31 Resp 16 03/26/18 07:31 BP 145/79 03/26/18 07:31 Pulse Ox 97 03/26/18 08:07 Intake & Output 03/25/18 03/26/18 03/26/18 18:59 06:59 18:59 Output Total 800 Balance -800 Weight 86.183 kg Output: Urine 800 Other: # Voids 2 - Exam General: non toxic, no distress, appears at stated age, obese Derm: warm, dry Head: atraumatic, normocephalic, symmetric Eyes: EOMI, no lid lag, anicteric sclera Mouth: no lip lesion, mucus membranes moist Cardiovascular: S1S2 reg, no murmur, positive posterior tibial pulse bilateral, Lungs: CTA bilateral, no rhonchi, no rales , no accessory muscle use Abdominal: soft, nontender to palpation, no guarding, no appreciable organomegaly Ext: no gross muscle atrophy, 2+ edema Left leg, no contractures Neuro: CN II-XI grossly intact, no focal neuro deficits Psych: Alert, oriented to self and situation, appropriate affect - Labs CBC & Chem 7: 03/26/18 06:33 03/26/18 06:33 Labs: Abnormal Lab Results - Last 24 Hours (Table) 03/25/18 03/25/18 03/25/18 Range/Units 17:45 18:30 18:30 WBC 13.9 H (3.8-10.6) k/uL RBC 2.29 L (3.80-5.40) m/uL Hgb 7.5 L (11.4-16.0) gm/dL Hct 23.8 L (34.0-46.0) % MCV 103.8 H (80.0-100.0) fL MCHC (31.0-37.0) g/dL Plt Count 541 H (150-450) k/uL Lymphocytes # (Manual) 5.00 H (1.0-4.8) k/uL Monocytes # (Manual) 2.50 H (0-1.0) k/uL Potassium (3.5-5.1) mmol/L Chloride (98-107) mmol/L Carbon Dioxide (22-30) mmol/L BUN (7-17) mg/dL Creatinine (0.52-1.04) mg/dL Glucose (74-99) mg/dL POC Glucose (mg/dL) (75-99) mg/dL Phosphorus (2.5-4.5) mg/dL AST (14-36) U/L Total Creatine Kinase <20 L (30-135) U/L Urine Appearance Turbid H (Clear) Urine Protein 1+ H (Negative) Urine Blood Moderate H (Negative) Ur Leukocyte Esterase Large H (Negative) Urine RBC 84 H (0-5) /hpf Urine WBC >182 H (0-5) /hpf Urine WBC Clumps Many H (None) /hpf Urine Bacteria Many H (None) /hpf 03/25/18 03/25/18 03/26/18 Range/Units 18:30 23:20 06:33 WBC 12.6 H (3.8-10.6) k/uL RBC 2.17 L (3.80-5.40) m/uL Hgb 7.1 L (11.4-16.0) gm/dL Hct 23.1 L (34.0-46.0) % MCV 106.4 H (80.0-100.0) fL MCHC 30.6 L (31.0-37.0) g/dL Plt Count 516 H (150-450) k/uL Lymphocytes # (Manual) (1.0-4.8) k/uL Monocytes # (Manual) (0-1.0) k/uL Potassium 5.7 H (3.5-5.1) mmol/L Chloride 109 H (98-107) mmol/L Carbon Dioxide 18 L (22-30) mmol/L BUN 68 H (7-17) mg/dL Creatinine 2.84 H (0.52-1.04) mg/dL Glucose 115 H (74-99) mg/dL POC Glucose (mg/dL) 145 H (75-99) mg/dL Phosphorus 5.3 H (2.5-4.5) mg/dL AST (14-36) U/L Total Creatine Kinase (30-135) U/L Urine Appearance (Clear) Urine Protein (Negative) Urine Blood (Negative) Ur Leukocyte Esterase (Negative) Urine RBC (0-5) /hpf Urine WBC (0-5) /hpf Urine WBC Clumps (None) /hpf Urine Bacteria (None) /hpf 03/26/18 Range/Units 06:33 WBC (3.8-10.6) k/uL RBC (3.80-5.40) m/uL Hgb (11.4-16.0) gm/dL Hct (34.0-46.0) % MCV (80.0-100.0) fL MCHC (31.0-37.0) g/dL Plt Count (150-450) k/uL Lymphocytes # (Manual) (1.0-4.8) k/uL Monocytes # (Manual) (0-1.0) k/uL Potassium 5.2 H (3.5-5.1) mmol/L Chloride 110 H (98-107) mmol/L Carbon Dioxide 17 L (22-30) mmol/L BUN 62 H (7-17) mg/dL Creatinine 2.74 H (0.52-1.04) mg/dL Glucose 118 H (74-99) mg/dL POC Glucose (mg/dL) (75-99) mg/dL Phosphorus (2.5-4.5) mg/dL AST 13 L (14-36) U/L Total Creatine Kinase (30-135) U/L Urine Appearance (Clear) Urine Protein (Negative) Urine Blood (Negative) Ur Leukocyte Esterase (Negative) Urine RBC (0-5) /hpf Urine WBC (0-5) /hpf Urine WBC Clumps (None) /hpf Urine Bacteria (None) /hpf Microbiology - Last 24 Hours (Table) 03/25/18 17:45 Urine Culture - Preliminary Urine,Clean Catch Assessment and Plan Assessment: BENSON 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 woth non anion gap metabolic acidosis - IVF restarted at 50 - continue to hold lasix - avoid additional nephrotoxic agents - await nephro recs - renal US pending - repeat BMP at 1400 - s/p kayexelate at night - follow BMP UTI - levaquin q 48 hours due to remal function - culture pending - IVF Weakness - likely related to UTI and BENSON - thyroid normal, B12 pending - PT/OT eval - fall precautions Anemia with thrombocytosis - Iron studies, B12, and folate pending - follow CBC - no signs of active bleeding, on ferrous sulfate at baseline and therefor hemococcult would be inaccurate DM2 with neuropathy - monitor glucose with AM blood work - A1C 6.2 03/24/18 - neurontin Murmur - echo pending CAD - ASA, plavix HTN,controlled - metorpolol - follow BP HLD - statin DVT prophylaxis: heparin Anticipated discharge: 2-[address]: home with home health A total of 35 minutes was spent on the complex care of this patient.
[2018-03-26] MEDS: SODIUM CHLORIDE 0.9% 1,000 ML IV SCH (14:42)
[2018-03-26 17:11] LABS: Calcium 8.8 mg/dL (8.4-10.2); Potassium 5.5 mmol/L (3.5-5.1)
[2018-03-26] MEDS ORDERED: SODIUM POLYSTYRENE SULFONATE 15 GM/60 ML BOTTLE PO ONE (17:13)
[2018-03-26] MEDS ORDERED: DARBEPOETIN ALFA 40 MCG/0.4 ML SYRINGE SQ SCH (19:45)
--- NOTE | 2018-03-26 20:32 | XR ---
EXAMINATION TYPE: XR chest 1V DATE OF EXAM: 03/26/2018 COMPARISON: NONE HISTORY: Heart failure TECHNIQUE: Single frontal view of the chest is obtained. FINDINGS: There is no heart failure nor confluent pneumonic infiltrate. Costophrenic angles are jadiel r. Thoracic aorta is atheromatous. Bony thorax is intact. IMPRESSION: No active cardiopulmonary disease. No change. No heart failure seen.
[2018-03-26] MEDS ORDERED: LEVOFLOXACIN 500MG-D5W PMX 500 MG in DEXTROSE/WATER 1 100ML.BAG IVPB SCH (21:00)
[2018-03-26] MEDS: SODIUM BICARBONATE TAB 650 MG TAB PO SCH (21:14)
--- NOTE | 2018-03-26 22:26 | CONS ---
CONSULTATION REASON FOR CONSULT: Renal failure. HISTORY OF PRESENT ILLNESS: Patient is an 82-year-old female with past history of chronic kidney disease stage 3 with baseline creatinine around 2 mg/dL secondary to nephrosclerosis. The patient was admitted to the hospital with complaints of weakness. She was actually found to have abnormal labs as outpatient and sent in for further evaluation. The patient denied any nausea or vomiting. She denied chest pain, shortness of breath. She denies any significant urinary symptoms. On admission, serum creatinine was noted to be 2.8 mg/dL with a potassium of 5.7. Review of previous labs shows a serum creatinine of about 1.7 in December of 2017. The patient denies use of any nonsteroidal anti-inflammatory agents. She was not on any JAIRO inhibitors or angiotensin-receptor blockers prior to admission. The patient had been on Lasix. The blood pressure has not been low. Currently patient is voiding. PAST MEDICAL HISTORY: Significant for coronary artery disease, CKD stage 3 to 4 with baseline creatinine about 1.7 as of December, neuropathy, history of right breast cancer status post surgery, history of sciatica. PAST SURGICAL HISTORY: Appendectomy, adenoidectomy, bowel resection, right mastectomy, colon resection, D and C, cataract surgeries, colonoscopies. SOCIAL HISTORY: Negative for smoking, drug abuse or alcohol abuse. REVIEW OF SYSTEMS: As per HPI. Other systems negative. MEDICATIONS: Prior to admission, Plavix, aspirin, Mevacor, Lopressor, Neurontin, Colace, iron, Lasix, Zyloprim, vitamin D3, ranitidine, vitamin C, E, and zinc and copper. ALLERGIES: PENICILLIN, which cause anaphylaxis. NOVOCAIN allergy not known. XANAX causes hallucinations. PHYSICAL EXAMINATION: Patient is comfortable, awake. She is not in any acute distress. She is confused, but answers questions appropriately. Blood pressure this morning was 145/79, heart rate about 60 per minute. Patient is afebrile. Examination of the heart S1, S2. Examination of the lungs bilateral breath sounds are heard. Abdomen is soft, nontender. Examination lower extremities shows trace edema. HAND PLEATER exam is grossly intact. LAB: Show sodium 138, potassium 5.5, chloride 107, BUN 61, serum creatinine 2.58, hemoglobin 7.1 g/dL. ASSESSMENT: 1. Acute kidney injury, most likely acute tubular necrosis, currently nonoliguric. An ultrasound of the kidney has been performed which shows no evidence of hydronephrosis. Currently patient is voiding. She is maintained on IV fluids which I will continue for now. There is no evidence of hypotension at this time. 2. Urinary tract infection maintained on Levaquin. 3. Hyperkalemia associated with acute kidney injury. Need to rule out gastrointestinal bleed as hemoglobin is at 7.1 g/dL. No obvious bleeding noted at this time. 4. Metabolic acidosis associated with renal failure. We will start patient on sodium bicarb, which will also help with the hyperkalemia. 5. Chronic kidney disease stage IIIB to stage IV secondary to nephrosclerosis. Current UA shows protein which is likely secondary to the underlying UTI. PLAN: Continue gentle IV hydration. Add sodium bicarb. Maintain patient on low-potassium diet. Check stool for occult blood. Check iron studies. Start Procrit/Aranesp and repeat labs in a.m. Check chest x-ray as well. Thank you for this consultation. We will continue to follow the patient with you during her hospitalization. MMODL / IJN: [id number] /
[2018-03-26 23:21] LABS: Potassium 5.7 mmol/L (3.5-5.1)
[2018-03-26] MEDS ORDERED: DEXTROSE 50%-WATER 50 ML SYRINGE IVP STA (23:50)
[2018-03-26 23:59] LABS: Iron Saturation 32.11 (12.00-45.00)
[2018-03-27] MEDS ORDERED: INSULIN REGULAR 100 UNIT/ML VIAL IV ONE
[2018-03-27] MEDS: HEPARIN SODIUM,PORCINE 5,000 UNIT/ML 1 ML VIAL SQ SCH ×3 (00:25→16:37)
[2018-03-27 00:26] LABS: Glucose,Whole Blood 127 mg/dL (75-99)
[2018-03-27] MEDS: SODIUM BICARBONATE TAB 650 MG TAB PO SCH ×2 (10:01→21:35)
[2018-03-27] MEDS: ATORVASTATIN 10 MG TAB PO SCH (10:01)
[2018-03-27] MEDS: CLOPIDOGREL 75 MG TAB PO SCH (10:01)
[2018-03-27] MEDS: GABAPENTIN 300 MG CAP PO SCH ×2 (10:01→21:35)
[2018-03-27] MEDS: DOCUSATE 100 MG CAP PO SCH ×2 (10:01→21:35)
[2018-03-27] MEDS: ASPIRIN 81 MG PO SCH (10:01)
[2018-03-27] MEDS: FAMOTIDINE 20 MG TAB PO SCH (10:03)
[2018-03-27] MEDS ORDERED: amLODIPine 2.5 MG TAB PO STA (10:05)
[2018-03-27] MEDS: METOPROLOL TARTRATE 50 MG TAB PO SCH (10:10)
[2018-03-27 10:18] LABS: Calcium 8.8 mg/dL (8.4-10.2); Potassium 4.9 mmol/L (3.5-5.1)
[2018-03-27 10:25] LABS: HCT 22.2 % (34.0-46.0); Hypochromasia Marked; MCH 33.4 pg (25.0-35.0); MCHC 31.6 g/dL (31.0-37.0); MCV 105.9 fL (80.0-100.0); Macrocytosis Moderate; Mean Platelet Volume 7.1; Platelet Count 516 k/uL (150-450); RDW 14.1 % (11.5-15.5); WBC 10.3 k/uL (3.8-10.6)
--- NOTE | 2018-03-27 12:37 | P.PN ---
Subjective Patient is seen in follow for acute kidney injury on chronic kidney disease. Patient has chronic kidney disease stage III with baseline creatinine near 2 secondary to nephrosclerosis. Renal function stable today. Currently awake and alert. Good urine output. Diuretics are held. Vital signs are stable. General: The patient appeared well nourished and normally developed. HEENT: Head exam is unremarkable. Neck is without jugular venous distension. LUNGS: Lungs are clear to auscultation and percussion. Breath sounds decreased. HEART: Rate and Rhythm are regular. First and second heart sounds normal. No murmurs, rubs or gallops. ABDOMEN: Abdominal exam reveals normal bowel sounds. Non-tender and non- distended. No evidence of peritonitis. EXTREMITITES: No clubbing, cyanosis, or edema. Objective - Vital Signs Vital signs: Vital Signs Temp 97.8 F 03/27/18 10:00 Pulse 80 03/27/18 10:00 Resp 18 03/27/18 10:00 BP 122/66 03/27/18 10:00 Pulse Ox 96 03/27/18 10:00 Intake & Output 03/26/18 03/27/18 03/27/18 18:59 06:59 18:59 Intake Total 600 Balance 600 Intake: Intake, IV Titration 600 Amount Levofloxacin 500Mg-D5w 100 Pmx 500 mg In Dextrose/ Water 1 100ml.bag @ 100 mls/hr IVPB Q48H JOSE A Rx#: [id number] Sodium Chloride 0.9% 1, 500 000 ml @ 50 mls/hr IV . Q20H JOSE A Rx#:[id number] Other: Voiding Method Toilet # Voids 3 1 - Labs CBC & Chem 7: 03/27/18 08:46 03/27/18 08:46 Labs: Abnormal Lab Results - Last 24 Hours (Table) 03/26/18 03/26/18 03/26/18 Range/Units 13:00 16:09 22:09 RBC (3.80-5.40) m/uL Hgb (11.4-16.0) gm/dL Hct (34.0-46.0) % MCV (80.0-100.0) fL Plt Count (150-450) k/uL Potassium 5.5 H 5.7 H (3.5-5.1) mmol/L Chloride 108 H (98-107) mmol/L Carbon Dioxide 19 L 19 L (22-30) mmol/L BUN 61 H 62 H (7-17) mg/dL Creatinine 2.58 H 2.53 H (0.52-1.04) mg/dL Glucose 121 H 131 H (74-99) mg/dL POC Glucose (mg/dL) (75-99) mg/dL TIBC 218 L (228-460) ug/dL Ferritin 720.7 H (10.0-291.0) ng/mL 03/27/18 03/27/18 03/27/18 Range/Units 00:24 08:46 08:46 RBC 2.10 L (3.80-5.40) m/uL Hgb 7.0 L (11.4-16.0) gm/dL Hct 22.2 L (34.0-46.0) % MCV 105.9 H (80.0-100.0) fL Plt Count 516 H (150-450) k/uL Potassium (3.5-5.1) mmol/L Chloride 109 H (98-107) mmol/L Carbon Dioxide 19 L (22-30) mmol/L BUN 50 H (7-17) mg/dL Creatinine 2.45 H (0.52-1.04) mg/dL Glucose 112 H (74-99) mg/dL POC Glucose (mg/dL) 127 H (75-99) mg/dL TIBC (228-460) ug/dL Ferritin (10.0-291.0) ng/mL Microbiology - Last 24 Hours (Table) 03/25/18 17:45 Urine Culture - Preliminary Urine,Clean Catch Gram Neg Bacilli Assessment and Plan Plan: Assessment: 1. Acute kidney injury secondary to ATN secondary to diuresis and infection. 2. Chronic kidney disease stage III secondary to nephrosclerosis with baseline creatinine near 2. 3. UTI. Urine culture positive for gram-negative bacilli. Maintained on antibiotics. 4. Diastolic CHF with moderate aortic stenosis. Compensated. 5. Anemia of chronic kidney disease. Iron replete. Maintained on Aranesp. 6. Hyperkalemia secondary to acute kidney injury. Resolved. 7. Metabolic acidosis secondary to acute kidney injury and IV fluids. Maintained on oral sodium bicarbonate. Plan: Maintain normal saline at 50 mL an hour. Monitor hemoglobin closely. Will need to transfuse drops further. Avoid nephrotoxins. Continue to hold diuretics. Repeat electrolytes in the morning.
--- NOTE | 2018-03-27 12:43 | P.PN ---
Subjective Progress Note Date: 03/27/18 Principal diagnosis: Patient is an 82 yo CF with a PMH of HTN, HLD, and CKD who presented to the emergency department at the direction of Dr. Dailey due to abnormal labs. Patient had been experiencing weakness and lethargy for 2 weeks. In the emergency department she underwent an evaluation. She was found to have BENSON, hyperkalemia, anemia, and a urinary tract infection. She was started on IVF and arrangements were made for admission. She was placed on levaquin, given D50 and insulin and kayexelate for her hyperkalemia. Nephrology was consulted. Patient without her hearing aids today extremely hard of hearing, patient reports that she's feeling better today. Patient wanted to go home discussed that she'll likely go home tomorrow after her urine cultures are back. No acute events overnight blood pressure elevated and not at goal Objective - Vital Signs Vital signs: Vital Signs Temp 97.5 F L 03/26/18 23:00 Pulse 80 03/26/18 23:00 Resp 16 03/26/18 23:00 BP 166/73 03/26/18 23:00 Pulse Ox 98 03/26/18 23:00 Intake & Output 03/26/18 03/27/18 03/27/18 18:59 06:59 18:59 Intake Total 600 Balance 600 Intake: Intake, IV Titration 600 Amount Levofloxacin 500Mg-D5w 100 Pmx 500 mg In Dextrose/ Water 1 100ml.bag @ 100 mls/hr IVPB Q48H JOSE A Rx#: [id number] Sodium Chloride 0.9% 1, 500 000 ml @ 50 mls/hr IV . Q20H JOSE A Rx#:[id number] Other: Voiding Method Toilet # Voids 3 1 - Exam General: non toxic, no distress, appears at stated age, obese Derm: warm, dry Head: atraumatic, normocephalic, symmetric Eyes: EOMI, no lid lag, anicteric sclera Mouth: no lip lesion, mucus membranes moist Cardiovascular: S1S2 reg, no murmur, positive posterior tibial pulse bilateral, Lungs: CTA bilateral, no rhonchi, no rales , no accessory muscle use Abdominal: soft, nontender to palpation, no guarding, no appreciable organomegaly Ext: no gross muscle atrophy, 2+ edema Left leg, no contractures Neuro: CN II-XI grossly intact, no focal neuro deficits Psych: Alert, oriented to self and situation, appropriate affect - Labs CBC & Chem 7: 03/27/18 08:46 03/27/18 08:46 Labs: Abnormal Lab Results - Last 24 Hours (Table) 03/26/18 03/26/18 03/26/18 Range/Units 06:33 13:00 16:09 Neutrophils # (Manual) 9.83 H (1.3-7.7) k/uL Monocytes # (Manual) 1.51 H (0-1.0) k/uL Potassium 5.5 H (3.5-5.1) mmol/L Chloride (98-107) mmol/L Carbon Dioxide 19 L (22-30) mmol/L BUN 61 H (7-17) mg/dL Creatinine 2.58 H (0.52-1.04) mg/dL Glucose 121 H (74-99) mg/dL POC Glucose (mg/dL) (75-99) mg/dL TIBC 218 L (228-460) ug/dL Ferritin 720.7 H (10.0-291.0) ng/mL 03/26/18 03/27/18 Range/Units 22:09 00:24 Neutrophils # (Manual) (1.3-7.7) k/uL Monocytes # (Manual) (0-1.0) k/uL Potassium 5.7 H (3.5-5.1) mmol/L Chloride 108 H (98-107) mmol/L Carbon Dioxide 19 L (22-30) mmol/L BUN 62 H (7-17) mg/dL Creatinine 2.53 H (0.52-1.04) mg/dL Glucose 131 H (74-99) mg/dL POC Glucose (mg/dL) 127 H (75-99) mg/dL TIBC (228-460) ug/dL Ferritin (10.0-291.0) ng/mL Microbiology - Last 24 Hours (Table) 03/25/18 17:45 Urine Culture - Preliminary Urine,Clean Catch Gram Neg Bacilli Assessment and Plan Plan: BENSON on CKD IV (secondary to nephrosclerosis ) with non anion gap metabolic acidosis * Hyperkalemia has resolved * Maintained on sodium bicarb due to metabolic acidosis * - IVF restarted at 50 - continue to hold lasix - avoid additional nephrotoxic agents - await nephro recs - renal US negative for hydronephrosis - repeat BMP at 1400 - s/p kayexelate at night - follow BMP UTI - levaquin q 48 hours due to renal - Culture growing gram-negative bacilli final culture sensitivities to follow - IVF HTN, uncontrolled * Continue metoprolol but will add Norvasc 5 mg daily today Anemia of Chronc disease/Iron deficiency anemia - continue with Aranesp - no signs of active bleeding, on ferrous sulfate at baseline and therefor hemococcult would be inaccurate Moderate aortic stenosis * Preserved ejection fraction on echocardiogram Weakness - likely related to UTI and BNESON - thyroid normal, B12 pending - PT/OT eval - fall precautions DM2 with neuropathy - monitor glucose with AM blood work - A1C 6.2 03/24/18 - neurontin - echo pending CAD - ASA, plavix HLD - statin DVT prophylaxis: heparin Anticipated discharge: 2-[address]: home with home health A total of 35 minutes was spent on the complex care of this patient.
[2018-03-27] MEDS: SODIUM CHLORIDE 0.9% 1,000 ML IV SCH (15:04)
[2018-03-27 19:16] VITALS: PULSE 69; RESP 16
[2018-03-28] MEDS: HEPARIN SODIUM,PORCINE 5,000 UNIT/ML 1 ML VIAL SQ SCH ×2 (01:16→08:15)
[2018-03-28 07:24] VITALS: BP 117/72; TEMP 98.4
[2018-03-28 07:42] LABS: HCT 23.8 % (34.0-46.0); HGB 7.1 gm/dL (11.4-16.0); Hypochromasia Slight; MCH 31.3 pg (25.0-35.0); MCHC 29.9 g/dL (31.0-37.0); MCV 104.7 fL (80.0-100.0); Macrocytosis Moderate; Mean Platelet Volume 7.5; Platelet Count 532 k/uL (150-450); RBC 2.28 m/uL (3.80-5.40); RDW 14.3 % (11.5-15.5); WBC 10.2 k/uL (3.8-10.6)
[2018-03-28 07:45] LABS: Calcium 8.8 mg/dL (8.4-10.2); Potassium 4.4 mmol/L (3.5-5.1)
[2018-03-28] MEDS: SODIUM CHLORIDE 0.9% 1,000 ML IV SCH (08:09)
[2018-03-28] MEDS: DOCUSATE 100 MG CAP PO SCH (08:12)
[2018-03-28] MEDS: FAMOTIDINE 20 MG TAB PO SCH (08:12)
[2018-03-28] MEDS: METOPROLOL TARTRATE 50 MG TAB PO SCH (08:14)
[2018-03-28] MEDS: GABAPENTIN 300 MG CAP PO SCH (08:14)
[2018-03-28] MEDS: CLOPIDOGREL 75 MG TAB PO SCH (08:14)
[2018-03-28] MEDS: ATORVASTATIN 10 MG TAB PO SCH (08:14)
[2018-03-28] MEDS: ASPIRIN 81 MG PO SCH (08:14)
[2018-03-28] MEDS: SODIUM BICARBONATE TAB 650 MG TAB PO SCH (08:14)
[2018-03-28] MEDS ORDERED: amLODIPine 2.5 MG TAB PO SCH (09:00)
[2018-03-28 10:09] LABS: Band Neutrophils % 1 %; Eosinophils # (M) 0.31 k/uL (0-0.7); Lymphocytes # (M) 3.47 k/uL (1.0-4.8); Metamyelocytes % 1 %; Monocytes # (M) 2.14 k/uL (0-1.0); Myelocytes % 2 %; Neutrophils % (M) 40 %; Nucleated Red Blood Cells 0 /100 WBC (0-0); Total Cells Counted 200
--- NOTE | 2018-03-28 12:10 | P.DS ---
Providers Date of admission: 03/25/18 16:58 Expected date of discharge: 03/28/18 Attending physician: Ximena Verdugo MD Consults: 03/25/18 21:09 Consult Physician Routine Consulting Provider: Con Mcclellan Consult Reason/Comments: known to physician Do you want consulting provider notified?: Yes, Notify in am Primary care physician: Isabelle Dailey MD - Discharge Diagnosis(es) (1) Acute kidney injury superimposed on chronic kidney disease Current Visit: Yes Status: Acute (2) Infection caused by Enterobacter cloacae Current Visit: Yes Status: Acute (3) Anemia in chronic kidney disease (CKD) Current Visit: Yes Status: Acute (4) Hyperkalemia Current Visit: Yes Status: Acute (5) UTI (urinary tract infection) Current Visit: No Status: Acute (6) Essential hypertension Current Visit: Yes Status: Acute (7) Aortic stenosis, moderate Current Visit: Yes Status: Acute Hospital Course: The patient is a 85-year-old female that was referred to the ER from her primary care physician Dr. Dailey due to increasing weakness and lethargy for the last 2 weeks she was subsequently admitted with acute kidney injury superimposed on chronic kidney disease stage IV After she presented with a serum creatinine of 2.8, hyperkalemic at 5.7 she was also found to have a urinary tract infection and was started on empiric IV antibiotics with IV Levaquin. Urine cultures eventually grew Enterobacter Clocae sensitive to fluoroquinolones and her antibiotic regimen was changed to oral Levaquin. The patient was given temporizing measures for her mild hyperkalemia with Kayexalate , all nephrotoxic agents were held including her Lasix. Nephrology was consulted and indicated that her kidney injury is likely secondary to ATN, renal ultrasound showed no evidence of hydronephrosis. The patient was noted to have an anemia of chronic disease per iron studies and she was started on procrit. On exam the patient was noted to have a murmur subsequent 2-D echocardiogram confirmed moderate aortic stenosis. With treatment in controlling her blood pressure by adding Norvasc 2.5 mg daily, the patient gradually improved and was subsequently discharged home in stable condition. The patient was scheduled to follow-up appointments with her PCP Dr. Dailey, nephrology and cardiology. This discharge process took approximately 35 minutes. Physical exam General: non toxic, no distress, appears at stated age, obese, hard of hearing Derm: warm, dry Head: atraumatic, normocephalic, symmetric Eyes: EOMI, no lid lag, anicteric sclera Mouth: no lip lesion, mucus membranes moist Cardiovascular: S1S2 reg, no murmur, positive posterior tibial pulse bilateral, Lungs: CTA bilateral, no rhonchi, no rales , no accessory muscle use Abdominal: soft, nontender to palpation, no guarding, no appreciable organomegaly Ext: no gross muscle atrophy, 1+ edema Left leg, no contractures Neuro: CN II-XI grossly intact, no focal neuro deficits Psych: Alert, oriented to self and situation, appropriate affect Patient Condition at Discharge: Good Plan - Discharge Summary Discharge Rx Participant: No New Discharge Prescriptions: New amLODIPine [Norvasc] 2.5 mg PO DAILY #30 tab Levofloxacin [Levaquin] 500 mg PO Q48H #2 tab Sodium Bicarbonate Tab 650 mg PO BID #60 tab Continue Metoprolol Tartrate [Lopressor] 50 mg PO DAILY Lovastatin [Mevacor] 20 mg PO DAILY Clopidogrel [Plavix] 75 mg PO DAILY Aspirin [Adult Low Dose Aspirin EC] 81 mg PO DAILY HYDROcodone/APAP 5-325MG [[place] 5-325] 1 tab PO BID PRN PRN Reason: Severe Pain Gabapentin [Neurontin] 300 mg PO BID Ferrous Sulfate [Iron (65 MG Elemental)] 325 mg PO AC-TID Docusate [Colace] 100 mg PO BID Furosemide [Lasix] 20 mg PO DAILY Cholecalciferol [Vitamin D3] 2,000 unit PO DAILY Vit C/E/Zn/Coppr/Lutein/Zeaxan [Preservision Areds 2 Softgel] 1 cap PO DAILY Ranitidine HCl 300 mg PO DAILY Allopurinol [Zyloprim] 100 mg PO DAILY Discharge Medication List Aspirin [Adult Low Dose Aspirin EC] 81 mg PO DAILY 05/23/15 [History] Clopidogrel [Plavix] 75 mg PO DAILY 05/23/15 [History] Lovastatin [Mevacor] 20 mg PO DAILY 05/23/15 [History] Metoprolol Tartrate [Lopressor] 50 mg PO DAILY 05/23/15 [History] HYDROcodone/APAP 5-325MG [[place] 5-325] 1 tab PO BID PRN 05/26/15 [History] Gabapentin [Neurontin] 300 mg PO BID 09/02/17 [History] Docusate [Colace] 100 mg PO BID 12/20/17 [History] Ferrous Sulfate [Iron (65 MG Elemental)] 325 mg PO AC-TID 12/20/17 [History] Furosemide [Lasix] 20 mg PO DAILY 12/20/17 [History] Allopurinol [Zyloprim] 100 mg PO DAILY 03/25/18 [History] Cholecalciferol [Vitamin D3] 2,000 unit PO DAILY 03/25/18 [History] Ranitidine HCl 300 mg PO DAILY 03/25/18 [History] Vit C/E/Zn/Coppr/Lutein/Zeaxan [Preservision Areds 2 Softgel] 1 cap PO DAILY 07/06 [History] Levofloxacin [Levaquin] 500 mg PO Q48H #2 tab 03/28/18 [Rx] Sodium Bicarbonate Tab 650 mg PO BID #60 tab 03/28/18 [Rx] amLODIPine [Norvasc] 2.5 mg PO DAILY #30 tab 03/28/18 [Rx] Follow up Appointment(s)/Referral(s): Isabelle Dailey MD [Primary Care Provider] - 1-2 days (Please call Saturday to schedule appointment) [facility], [NON-STAFF] - Con Mcclellan DO [Family Provider] - 04/17/18 11:40 am Discharge Disposition: HOME SELF-CARE
--- NOTE | 2018-03-28 15:04 | PN ---
PROGRESS NOTE Patient is seen for followup for acute kidney injury. Her renal function has improved slightly with serum creatinine down to 2.3. Patient denies any significant complaints. On examination, blood pressure is 117/72, heart rate 69 per minute. She is afebrile. Examination of the heart, S1, S2. Examination of the lungs, bilateral breath sounds are heard. Abdomen is soft, obese, nontender. Examination of the lower extremities shows edema 1+ bilaterally. STATION ATTENDANT exam is grossly intact. LABS: Show sodium of 142, potassium 4.4, chloride 111, BUN 47, serum creatinine 2.31, hemoglobin 7.1 g/dL. ASSESSMENT: 1. Acute kidney injury, ATN currently improving. Patient is stable for discharge from Nephrology standpoint. She should follow up as outpatient. 2. Chronic kidney disease stage III secondary to nephrosclerosis with baseline creatinine around 2 mg/dL. 3. Urinary tract infection, maintained on antibiotics. 4. Diastolic heart failure with moderate aortic stenosis. 5. Anemia of chronic disease, maintained on Aranesp. No active bleeding noted at this time. 6. Metabolic acidosis, secondary to renal failure, maintained on oral sodium bicarb. PLAN: Patient can be discharged from nephrology standpoint. Follow up as outpatient in about 2 weeks' time. MMODL / IJN: [id number] /
[2018-03-28] MEDS ORDERED: LEVOFLOXACIN 500 MG TAB PO SCH (20:00)
== END 2018-03-28 14:36 | disposition home health service (06) | DRG 683 ==
LOC: EC 14:35 → 4SSUR 16:58
PROVIDERS: ADMIT Internal Medicine; ATTEND Internal Medicine
PROC: 05HF33Z Insertion of Infusion Device into Left Cephalic Vein, Percutaneous Approach (ICD-10-PCS; principal; 2018-03-27 14:10)
DX: N17.0 Acute kidney failure with tubular necrosis (principal); E87.2 Acidosis; N39.0 Urinary tract infection, site not specified; I50.30 Unspecified diastolic (congestive) heart failure; I13.0 Hypertensive heart and chronic kidney disease with heart failure and stage 1 through stage 4 chronic kidney disease, or unspecified chronic kidney disease; E87.5 Hyperkalemia; E86.0 Dehydration; E11.40 Type 2 diabetes mellitus with diabetic neuropathy, unspecified; E11.22 Type 2 diabetes mellitus with diabetic chronic kidney disease; G62.9 Polyneuropathy, unspecified; B96.89 Other specified bacterial agents as the cause of diseases classified elsewhere; I35.0 Nonrheumatic aortic (valve) stenosis; D63.1 Anemia in chronic kidney disease; K21.9 Gastro-esophageal reflux disease without esophagitis; I25.10 Atherosclerotic heart disease of native coronary artery without angina pectoris; H91.90 Unspecified hearing loss, unspecified ear; E78.5 Hyperlipidemia, unspecified; M19.90 Unspecified osteoarthritis, unspecified site; N18.4 Chronic kidney disease, stage 4 (severe); E66.9 Obesity, unspecified; R32 Unspecified urinary incontinence; D50.9 Iron deficiency anemia, unspecified; T50.1X5A Adverse effect of loop [high-ceiling] diuretics, initial encounter; Z68.37 Body mass index [BMI] 37.0-37.9, adult; Z79.82 Long term (current) use of aspirin; Z79.02 Long term (current) use of antithrombotics/antiplatelets; Z79.899 Other long term (current) drug therapy; Z90.11 Acquired absence of right breast and nipple; Z98.42 Cataract extraction status, left eye; Z85.3 Personal history of malignant neoplasm of breast; Z98.41 Cataract extraction status, right eye; Z86.14 Personal history of Methicillin resistant Staphylococcus aureus infection; Z89.432 Acquired absence of left foot; Z90.49 Acquired absence of other specified parts of digestive tract; Z96.1 Presence of intraocular lens; Z95.5 Presence of coronary angioplasty implant and graft; Z88.0 Allergy status to penicillin; Z88.8 Allergy status to other drugs, medicaments and biological substances; Z82.3 Family history of stroke; Z80.9 Family history of malignant neoplasm, unspecified
CPT/HCPCS: 36410; 36415; 71045; 76770; 76937; 80048; 80053; 81001; 82550; 82553; 82607; 82728; 82746; 83036; 83540; 83550; 83735; 84100; 84443; 84484; 84550; 85025; 85027; 87077; 87086; 87186; 93005; 93306; 94760; 96360; 96361; 99285

== ENCOUNTER 2018-10-13 09:27 | Inpatient (IN) | payer MEDICARE, BC ==
[2018-10-13] MEDS ORDERED: MORPHINE SULFATE 4 MG/ML SYRINGE IV STA (09:45)
--- NOTE | 2018-10-13 09:46 | ED ---
General Adult HPI - General Chief complaint: Fall Stated complaint: LEFT HIP INJURY FROM FALL Time Seen by Provider: 10/13/18 09:28 Source: patient, EMS, RN notes reviewed Mode of arrival: EMS Limitations: physical limitation - History of Present Illness Initial comments: Patient is a pleasant 82-year-old female presenting to the emergency Department with complaints of fall. Patient fall getting out of bed today. No head injury or loss of consciousness. Patient does not take blood thinners. Patient complains of discomfort of her back then later states her back does not really hurt. EMS felt patient's area of discomfort is left hip. Patient denies hip pain. Patient later complains to nursing staff that she does have hip pain. Patient is a poor historian. - Related Data Home Medications Medication Instructions Recorded Confirmed Aspirin [Adult Low Dose Aspirin EC] 81 mg PO DAILY 05/23/15 10/13/18 Lovastatin [Mevacor] 20 mg PO DAILY 05/23/15 10/13/18 Metoprolol Tartrate [Lopressor] 50 mg PO DAILY 05/23/15 10/13/18 HYDROcodone/APAP 5-325MG [[place] 1 tab PO BID PRN 05/26/15 10/13/18 5-325] Gabapentin [Neurontin] 300 mg PO BID 09/02/17 10/13/18 Docusate [Colace] 100 mg PO BID 12/20/17 10/13/18 Ferrous Sulfate [Iron (65 MG 325 mg PO AC-TID 12/20/17 10/13/18 Elemental)] Furosemide [Lasix] 20 mg PO DAILY 12/20/17 10/13/18 Allopurinol [Zyloprim] 100 mg PO BID 03/25/18 10/13/18 Ranitidine HCl 300 mg PO DAILY 03/25/18 10/13/18 Sodium Bicarbonate Tab 650 mg PO DAILY 10/13/18 10/13/18 Previous Rx's Medication Instructions Recorded amLODIPine [Norvasc] 2.5 mg PO DAILY #30 tab 03/28/18 Allergies Allergy/AdvReac Type Severity Reaction Status Date / Time Penicillins Allergy Anaphylaxis Verified 10/13/18 09:47 procaine HCl [From Novocain] Allergy Unknown Verified 10/13/18 09:47 alprazolam [From Xanax] AdvReac Hallucinati Verified 10/13/18 09:47 ons Review of Systems ROS Statement: Those systems with pertinent positive or pertinent negative responses have been documented in the HPI. ROS Other: All systems not noted in ROS Statement are negative. Constitutional: Denies: fever Eyes: Denies: eye pain ENT: Denies: ear pain Respiratory: Denies: cough Cardiovascular: Denies: chest pain Endocrine: Denies: fatigue Gastrointestinal: Denies: abdominal pain Genitourinary: Denies: dysuria Musculoskeletal: Reports: as per HPI Skin: Denies: rash Neurological: Denies: headache, weakness Past Medical History Past Medical History: Coronary Artery Disease (CAD), Cancer, GERD/Reflux, Hearing Disorder / Deafness, Hyperlipidemia, Hypertension, Osteoarthritis (OA), Renal Disease, Respiratory Disorder Additional Past Medical History / Comment(s): NIDDM now diet controlled after wt loss, L ankle/foot partial amp with surgery, neuropathy L foot, past R foot ulcers now healed, R breast cancer with surgery only, bilateral [place], UTI with sepsis, CKD, chronic anemia, bilateral sciatica, arthritis multiple joints. History of Any Multi-Drug Resistant Organisms: MRSA Date of last positivie culture/infection: 06/02/15 MDRO Source:: Right Foot Past Surgical History: Adenoidectomy, Appendectomy, Bowel Resection, Breast Surgery, Heart Catheterization With Stent, Hernia Repair, Orthopedic Surgery, Tonsillectomy, Tubal Ligation Additional Past Surgical History / Comment(s): 2006 L foot surgery for partial amp, umbilical hernia repair, R mastectomy, colon resection (pt cannot recall reason), D&C, bilateral cataract removals/lens implants, colonoscopies. Past Anesthesia/Blood Transfusion Reactions: No Reported Reaction Date of Last Stent Placement:: 2002 Past Psychological History: No Psychological Hx Reported Smoking Status: Never smoker Past Alcohol Use History: None Reported Past Drug Use History: None Reported - Past Family History Mother Family Medical History: CVA/TIA Brother(s) Family Medical History: Cancer Father History Unknown: Yes Additional Family Medical History / Comment(s): Pt did not have much contact with her father. General Exam Limitations: physical limitation General appearance: alert, in no apparent distress Head exam: Present: atraumatic Eye exam: Present: normal appearance, PERRL ENT exam: Present: normal oropharynx Neck exam: Present: normal inspection. Absent: tenderness Respiratory exam: Present: normal lung sounds bilaterally Cardiovascular Exam: Present: regular rate, normal rhythm GI/Abdominal exam: Present: soft. Absent: tenderness Extremities exam: Present: other (Pain with range of motion left leg. Patient has discomfort bilateral superior tib-fib region. Distally show knees are neurovascularly intact.) Back exam: Present: normal inspection. Absent: tenderness, vertebral tenderness Neurological exam: Present: alert, CN II-XII intact. Absent: motor sensory deficit Psychiatric exam: Present: normal affect, normal mood Skin exam: Present: normal color Course Vital Signs 10/13/18 09:27 Temperature 97.6 F Pulse Rate 75 Respiratory 18 Rate Blood Pressure 131/53 O2 Sat by Pulse 96 Oximetry - Reevaluation(s) Reevaluation #1: 10/13/18 10:50 Patient received pain medication by EMS prior to arrival. Patient is resting comfortably at this time and does not want pain medication. Medical Decision Making - Medical Decision Making Patient reevaluated. Patient and family updated. Dr. Curiel has been paged for admission. - Radiology Data Radiology results: image reviewed (Left hip fracture on pelvis and left femur x- ray. Bilateral tib-fib and lumbar x-rays show no process) Disposition Clinical Impression: Hip fracture, left Disposition: ADMITTED IP TO THIS HOSP Is patient prescribed a controlled substance at d/c from ED?: No Referrals: Isabelle Dailey MD [Primary Care Provider] - 1-2 days Decision Time: 10:51
[2018-10-13] MEDS ORDERED: MORPHINE SULFATE 2 MG/ML SYRINGE IM STA (09:53)
[2018-10-13] MEDS ORDERED: HYDROmorphone 1 MG/ML 1 ML SYRINGE IVP PRN (10:51)
[2018-10-13] MEDS ORDERED: ACETAMINOPHEN TAB 325 MG TAB PO PRN (10:51)
[2018-10-13] MEDS ORDERED: NALOXONE 0.4 MG/ML 1 ML VIAL IV PRN (10:51)
--- NOTE | 2018-10-13 11:00 | XR ---
EXAMINATION TYPE: XR femur LT DATE OF EXAM: 10/13/2018 CLINICAL HISTORY: Pain TECHNIQUE: Two views of the left femur are obtained. COMPARISON: None FINDINGS: There is a displaced left femoral neck fracture. Diffuse osteopenia and arthropathy noted. Vascular calcification seen. Postsurgical change involving the knee IMPRESSION: 1. Displaced left femoral neck fracture.
--- NOTE | 2018-10-13 11:01 | XR ---
EXAM TYPE: LUMBAR SPINE X RAY SERIES COMPARISON: NONE HISTORY: Pain TECHNIQUE: 4 views are submitted. FINDINGS: Alignment is anatomic. The pedicles are intact. The transverse processes are intact. There is hype rtrophic and degenerative change of the spine. Multilevel facet arthropathy. Vascular calcifications noted. Diffuse osteopenia noted. IMPRESSION: 1. Hypertrophic and degenerative changes of the vertebral column. No compression deformities.
--- NOTE | 2018-10-13 11:02 | XR ---
EXAMINATION TYPE: XR pelvis AP view DATE OF EXAM: 10/13/2018 COMPARISON: NONE HISTORY: Pain Hypertrophic and degenerative change of the vertebral column. Arthropathy of the hips. There is a fra cture involving the left femoral neck with displacement.. No acute fracture is seen. Visualized bow el gas pattern is nonspecific. IMPRESSION: 1. Displaced fracture left femoral neck
--- NOTE | 2018-10-13 11:04 | XR ---
EXAMINATION TYPE: XR tibia fibula bilateral DATE OF EXAM: 10/13/2018 COMPARISON: NONE HISTORY: Pain TECHNIQUE: Two views are submitted bilaterally. FINDINGS: Postsurgical changes involving the left tibia and fibular noted with diffuse osteopenia. Arthropathy of the ankle joint. No acute displaced fracture. Postsurgical change involving the right knee. Diffuse osteopenia. No acute displaced fracture.
[2018-10-13 12:13] LABS: Albumin 4.4 g/dL (3.5-5.0); Calcium 9.3 mg/dL (8.4-10.2); Potassium 5.8 mmol/L (3.5-5.1); Total Bilirubin 0.5 mg/dL (0.2-1.3); Total Protein 8.5 g/dL (6.3-8.2)
[2018-10-13 12:19] LABS: Basophils # (A) 0.1 k/uL (0-0.2); Basophils % (A) 0 %; Eosinophils # (A) 0.1 k/uL (0-0.7); Eosinophils % (A) 0 %; HCT 30.8 % (34.0-46.0); HGB 9.6 gm/dL (11.4-16.0); Hypochromasia Slight; Lymphocytes # (A) 1.7 k/uL (1.0-4.8); Lymphocytes % (A) 7 %; MCH 32.2 pg (25.0-35.0); MCHC 31.2 g/dL (31.0-37.0); MCV 103.1 fL (80.0-100.0); Macrocytosis Slight; Mean Platelet Volume 7.7; Monocytes # (A) 1.7 k/uL (0-1.0); Monocytes % (A) 7 %; Neutrophils # (A) 20.3 k/uL (1.3-7.7); Neutrophils % (A) 83 %; Platelet Count 568 k/uL (150-450); RBC 2.99 m/uL (3.80-5.40); WBC 24.6 k/uL (3.8-10.6)
[2018-10-13 12:35] LABS: Prothrombin Time 10.8 sec (9.0-12.0)
[2018-10-13] MEDS: FAMOTIDINE 20 MG TAB PO SCH (16:17)
[2018-10-13] MEDS: amLODIPine 2.5 MG TAB PO SCH (16:18)
[2018-10-13] MEDS: METOPROLOL TARTRATE 50 MG TAB PO SCH (16:18)
[2018-10-13] MEDS ORDERED: SODIUM POLYSTYRENE SULFONATE 15 GM/60 ML BOTTLE PO STA (17:10)
[2018-10-13 17:17] LABS: Glucose,Whole Blood 132 mg/dL (75-99)
--- NOTE | 2018-10-13 17:28 | P.CONS ---
History of Present Illness - Reason for Consult Consult date: 10/13/18 Medical management. Requesting physician: Stiven Curiel - Chief Complaint Low back pain post fall since this morning. 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 Patient reported that she started having low back pain after the fall and EMS was called. Patient is not a good historian and most of the data was recovered from the patient patient's ER visit notes and the from the nurses. Patient was extensively evaluated in the emergency department was noted to have for left hip fracture and was admitted under orthopedic service. Medicine was consulted for medical management. Patient denies chest pain, palpitation, dizziness, diaphoresis, headache, lightheadedness, nausea, vomiting, fever, chills, cough and denies rest of the review system. Regarding her low back pain after the fall patient states that it comes and goes like his spasms of the muscles. Patient also reports she is having pain in the left hip area when she tried to move her left leg. Nurses reported that patient was given morphine sulfate intravenously 2 doses in the emergency department and now patient is mostly sleepy. Review of Systems 12 point review of system was essentially negative other than mentioned in the HPI. Past Medical History Past Medical History: Coronary Artery Disease (CAD), Cancer (Breast cancer status post right mastectomy.), Diabetes Mellitus (Diet-controlled), GERD/Reflux, Hearing Disorder / Deafness, Hyperlipidemia, Hypertension, Osteoarthritis (OA), Renal Disease Additional Past Medical History / Comment(s): NIDDM now diet controlled after wt loss, neuropathy bilateral feet, L ankle/foot surgery d/t injury caused by mediboot, , past R foot ulcers now healed, chronic kidney disease stage IV, chronic anemia, aortic stenosis, bowel obstructions, UTIs, UTI with sepsis, R breast cancer with surgery only, bilateral [place], low back pain, bilateral sciatica, arthritis multiple joints. History of Any Multi-Drug Resistant Organisms: MRSA Year Discovered:: 06/02/15 MDRO Source:: Right Foot Past Surgical History: Adenoidectomy, Appendectomy, Back Surgery, Bladder Surgery, Bowel Resection, Breast Surgery, Heart Catheterization With Stent, Hernia Repair, Orthopedic Surgery, Tonsillectomy, Tubal Ligation Additional Past Surgical History / Comment(s): R ankle surgery d/t trauma caused by mediboot, L ankle fracture with surgery, bilateral total knee arthroplasties, low back surgery, R breast mastectomy, umbilical hernia repair, D&C, bilateral cataract removals/lens implants, bladder suspensions, colonoscopies. Past Anesthesia/Blood Transfusion Reactions: No Reported Reaction Date of Last Stent Placement:: 2002 Smoking Status: Never smoker - Past Family History Mother Family Medical History: CVA/TIA Brother(s) Family Medical History: Cancer Father History Unknown: Yes Additional Family Medical History / Comment(s): Pt did not have much contact with her father. Medications and Allergies Home Medications Medication Instructions Recorded Confirmed Type Aspirin [Adult Low Dose Aspirin EC] 81 mg PO DAILY 05/23/15 10/13/18 History Lovastatin [Mevacor] 20 mg PO DAILY 05/23/15 10/13/18 History Metoprolol Tartrate [Lopressor] 50 mg PO DAILY 05/23/15 10/13/18 History HYDROcodone/APAP 5-325MG [[place] 1 tab PO BID PRN 05/26/15 10/13/18 History 5-325] Gabapentin [Neurontin] 300 mg PO BID 09/02/17 10/13/18 History Docusate [Colace] 100 mg PO BID 12/20/17 10/13/18 History Ferrous Sulfate [Iron (65 MG 325 mg PO AC-TID 12/20/17 10/13/18 History Elemental)] Furosemide [Lasix] 20 mg PO DAILY 12/20/17 10/13/18 History Allopurinol [Zyloprim] 100 mg PO BID 03/25/18 10/13/18 History Ranitidine HCl 300 mg PO DAILY 03/25/18 10/13/18 History amLODIPine [Norvasc] 2.5 mg PO DAILY #30 tab 03/28/18 10/13/18 Rx Sodium Bicarbonate Tab 650 mg PO DAILY 10/13/18 10/13/18 History Allergies Allergy/AdvReac Type Severity Reaction Status Date / Time Penicillins Allergy Anaphylaxis Verified 10/13/18 09:47 procaine HCl [From Novocain] Allergy Unknown Verified 10/13/18 09:47 alprazolam [From Xanax] AdvReac Hallucinati Verified 10/13/18 09:47 ons Physical Exam Vitals: Vital Signs Temp Pulse Pulse Pulse Resp BP BP 10/13/18 14:46 97.8 F 74 16 148/76 10/13/18 12:32 97.5 F L 89 18 10/13/18 11:30 97.6 F 70 18 134/62 10/13/18 09:27 97.6 F 75 18 131/53 BP Pulse Ox 10/13/18 14:46 98 10/13/18 12:32 167/50 92 L 10/13/18 11:30 96 10/13/18 09:27 96 Intake and Output 10/13/18 10/13/18 10/13/18 06:59 14:59 22:59 Output Total 600 Balance -600 Output: Urine 600 Uretheral ([place]) 300 Other: Voiding Method Indwelling Catheter Weight 102.058 kg - Constitutional General appearance: cooperative, mild distress (Due to pain in left hip area.) - EENT Eyes: EOMI, poor dentition, normal appearance ENT: hearing grossly normal, NA/AT - Neck Neck: no lymphadenopathy, normal ROM, no rigidity, no stridor, no thyromegaly - Respiratory Respiratory: bilateral: CTA, negative: rales, rhonchi, wheezing - Cardiovascular Rhythm: regular Heart sounds: normal: S1, S2 Abnormal Heart Sounds: systolic murmur (Ejection systolic murmur.), no S3 G allop, no S4 Gallop - Gastrointestinal General gastrointestinal: no distended, normal bowel sounds, no rigid, soft, no tenderness - Integumentary Integumentary: no cellulitis, no cyanotic, no jaundiced, normal, normal turgor, no pale, no rash, no ulcer - Neurologic Grossly intact bilaterally. Neurologic: CNII-XII intact - Psychiatric A, O X 2, pleasantly confused. Results CBC & Chem 7: 10/13/18 11:40 10/13/18 11:40 Labs: Abnormal Lab Results - Last 24 Hours (Table) 08/26/19 08/26/19 Range/Units 11:40 11:40 WBC 24.6 H (3.8-10.6) k/uL RBC 2.99 L (3.80-5.40) m/uL Hgb 9.6 L (11.4-16.0) gm/dL Hct 30.8 L (34.0-46.0) % MCV 103.1 H (80.0-100.0) fL RDW 16.0 H (11.5-15.5) % Plt Count 568 H (150-450) k/uL Neutrophils # 20.3 H (1.3-7.7) k/uL Monocytes # 1.7 H (0-1.0) k/uL Potassium 5.8 H (3.5-5.1) mmol/L Carbon Dioxide 19 L (22-30) mmol/L BUN 38 H (7-17) mg/dL Creatinine 2.37 H (0.52-1.04) mg/dL Glucose 157 H (74-99) mg/dL Total Protein 8.5 H (6.3-8.2) g/dL Assessment and Plan (1) UTI (urinary tract infection) Narrative/Plan: Patient with high white count and had a fall with confusion, at this point her baseline status is not known will consider it as urinary tract infection, patient does have history of recurring urinary tract infections. Patient's urine analysis with cultures and sensitivity if indicated will be sent, I will hold on antibiotics until the urine analysis report is back. Patient does have a [place] catheter inserted in the emergency department. Patient is afebrile but we'll continue to monitor. Current Visit: Yes Status: Acute Priority: High Code(s): N39.0 - URINARY TRACT INFECTION, SITE NOT SPECIFIED SNOMED Code(s): 33671493 (2) Hyperkalemia Narrative/Plan: Multifactorial hyperkalemia most likely secondary to worsening CKD stage IV, patient will be given Kayexalate 30 g 1 time now and patient will be referred to nephrology for further evaluation and management of CKD. I will check basic panel in the morning. Current Visit: Yes Status: Acute Priority: High Code(s): E87.5 - HYPERKALEMIA SNOMED Code(s): 18667826 (3) CKD (chronic kidney disease) Narrative/Plan: Patient had chronic kidney disease is stage III in March and that she was admitted with acute kidney injury and after that her kidney function remains at the level of CKD stage IV. Patient has seen the perinatal tech in the past and we will refer to nephrology team radio communication coordinator. Current Visit: Yes Status: Acute Priority: High Code(s): N18.9 - CHRONIC KIDNEY DISEASE, UNSPECIFIED SNOMED Code(s): 532358762 (4) Essential hypertension Narrative/Plan: Patient blood pressure is stable she was on oral antihypertensive medication and continue upon this admission. She has not taken morning pills I will give morning pills in the afternoon and will continue to monitor her blood pressure and she will resume her scheduled dosage from tomorrow morning. Current Visit: Yes Status: Acute Priority: Medium Code(s): I10 - ESSENTIAL (PRIMARY) HYPERTENSION SNOMED Code(s): 28612321 (5) Diabetes mellitus type 2 in obese Narrative/Plan: Patient's diabetes is controlled with diet only her blood sugars is less than 150 but I will start her on sliding scale insulin coverage while she is in the hospital and will monitor her blood sugar closely. She will be continued on consistent carbohydrate diet. Current Visit: Yes Status: Acute Priority: Medium Code(s): E11.69 - TYPE 2 DIABETES MELLITUS WITH OTHER SPECIFIED COMPLICATION; E66.9 - OBESITY, UNSPECIFIED SNOMED Code(s): 97510757 (6) CAD (coronary artery disease), [place] coronary artery Narrative/Plan: Patient does have a history of coronary artery disease but no active coronary artery symptoms, EKG normal sinus rhythm without acute ST-T wave changes. We will continue to monitor and if indicated for preoperative risk assessment we'll recommend cardiology involvement. Current Visit: No Status: Acute Priority: Medium Code(s): I25.10 - ATHSCL HEART DISEASE OF [place] CORONARY ARTERY W/O ANG PCTRS SNOMED Code(s): 3448101119850 (7) Valvular heart disease Narrative/Plan: Ejection systolic murmur was heard on the left sternal border most likely aortic sclerosis. Patient has 2-D echo done in the past if indicated and if recommended by cardiology echocardiogram can be repeated. Current Visit: Yes Status: Acute Priority: Medium Code(s): I38 - ENDOCARDITIS, VALVE UNSPECIFIED SNOMED Code(s): 837786 (8) Hip fracture, left Narrative/Plan: Pain management and your care, I talked is actually off ordering CBC, basic panel and PT/INR in the morning for preoperative labs. Current Visit: Yes Status: Acute Priority: High Code(s): S72.002A - FRACTURE OF UNSP PART OF NECK OF LEFT FEMUR, INIT SNOMED Code(s): 793374567 Plan: Thanks Dr. Curiel for referring this nice lady to our service for the medical management, we will continue to follow while she is in the hospital. Time with Patient: Greater than 30
--- NOTE | 2018-10-13 17:51 | P.HPOR ---
History of Present Illness H&P Date: 10/13/18 This patient is an 82-year-old female with a past medical history of bilateral total knee arthroplasty, prior left foot and ankle surgery in 2006, hypertension, hyperlipidemia, history of breast cancer, chronic kidney disease, GERD, coronary artery disease, and bilateral sciatica that presented to [facility] emergency department on 10/13/18 via EMS after sustaining a ground-level fall. The patient states she is getting out of bed today when she fell, landing on her left side. Patient was not able to get off the ground, or ambulate. She states she called for help for her daughter, who called EMS. On presentation to the emergency department, the patient was found to have a left basicervical femoral neck fracture. The patient was admitted under the care of Dr. Curiel with consults placed to internal medicine for medical management. Per nursing, the patient's family is out of town at this time. She has a child care worker that presents to her home to assist with activities of daily living. Per her home health nurse, patient has had issues with recurrent UTIs, which have resulted in confusion. Patient's home health nurse states she has remained confused from her most recent UTI. She uses a walker at baseline, and lives along in the home. The patient is a very poor historian. At the time of exam, the patient states her pain is localized to the left hip, and at the beginning of my exam she states that she is also experiencing back pain. She also notes she is experiencing pain radiating down bilateral lower extremities, although she denies this when asked about this pain pain later in my exam. It appears taht with movement, she localizes her pain explicitly to the left hip. She denies pain in the upper extremities. She denies bowel or bladder dysfunction. She denies additional complaints at this time. Vital signs stable. Past Medical History Past Medical History: Coronary Artery Disease (CAD), Cancer (Breast cancer status post right mastectomy.), Diabetes Mellitus (Diet-controlled), GERD/Reflux, Hearing Disorder / Deafness, Hyperlipidemia, Hypertension, Osteoarthritis (OA), Renal Disease Additional Past Medical History / Comment(s): NIDDM now diet controlled after wt loss, neuropathy bilateral feet, L ankle/foot surgery d/t injury caused by mediboot, , past R foot ulcers now healed, chronic kidney disease stage IV, chronic anemia, aortic stenosis, bowel obstructions, UTIs, UTI with sepsis, R breast cancer with surgery only, bilateral [place], low back pain, bilateral sciatica, arthritis multiple joints. History of Any Multi-Drug Resistant Organisms: MRSA Date of last positivie culture/infection: 06/02/15 MDRO Source:: Right Foot Past Surgical History: Adenoidectomy, Appendectomy, Back Surgery, Bladder Surgery, Bowel Resection, Breast Surgery, Heart Catheterization With Stent, Hernia Repair, Orthopedic Surgery, Tonsillectomy, Tubal Ligation Additional Past Surgical History / Comment(s): R ankle surgery d/t trauma caused by mediboot, L ankle fracture with surgery, bilateral total knee arthroplasties, low back surgery, R breast mastectomy, umbilical hernia repair, D&C, bilateral cataract removals/lens implants, bladder suspensions, colonoscopies. Past Anesthesia/Blood Transfusion Reactions: No Reported Reaction Date of Last Stent Placement:: 2002 Smoking Status: Never smoker - Past Family History Mother Family Medical History: CVA/TIA Brother(s) Family Medical History: Cancer Father History Unknown: Yes Additional Family Medical History / Comment(s): Pt did not have much contact with her father. Medications and Allergies Home Medications Medication Instructions Recorded Confirmed Type Aspirin [Adult Low Dose Aspirin EC] 81 mg PO DAILY 05/23/15 10/13/18 History Lovastatin [Mevacor] 20 mg PO DAILY 05/23/15 10/13/18 History Metoprolol Tartrate [Lopressor] 50 mg PO DAILY 05/23/15 10/13/18 History HYDROcodone/APAP 5-325MG [[place] 1 tab PO BID PRN 05/26/15 10/13/18 History 5-325] Gabapentin [Neurontin] 300 mg PO BID 09/02/17 10/13/18 History Docusate [Colace] 100 mg PO BID 12/20/17 10/13/18 History Ferrous Sulfate [Iron (65 MG 325 mg PO AC-TID 12/20/17 10/13/18 History Elemental)] Furosemide [Lasix] 20 mg PO DAILY 12/20/17 10/13/18 History Allopurinol [Zyloprim] 100 mg PO BID 03/25/18 10/13/18 History Ranitidine HCl 300 mg PO DAILY 03/25/18 10/13/18 History amLODIPine [Norvasc] 2.5 mg PO DAILY #30 tab 03/28/18 10/13/18 Rx Sodium Bicarbonate Tab 650 mg PO DAILY 10/13/18 10/13/18 History Allergies Allergy/AdvReac Type Severity Reaction Status Date / Time Penicillins Allergy Anaphylaxis Verified 10/13/18 09:47 procaine HCl [From Novocain] Allergy Unknown Verified 10/13/18 09:47 alprazolam [From Xanax] AdvReac Hallucinati Verified 10/13/18 09:47 ons Physical Examination On examination, the patient is lying in bed in no apparent distress. She is alert, she is able to answer questions and follow commands when asked. Although, she does not appear oriented to time or place. Her head appears normocephalic and atraumatic. Her breathing appears nonlabored. On inspection, the left lower extremity is shortened and externally rotated. There are healed incisions about the bilateral anterior knees, as well as the left ankle. There is extreme pain on palpation of the left hip. There appears to be no pain on palpation of the distal femur, knee, ankle, or foot. Patient has good range of motion of the left ankle and foot. The left lower extremity is warm and well- perfused, with brisk capillary refill of the toes. Attempt at lumbar spine examination made, although the patient experiences severe left hip pain this movement, therefore exam is deferred at this time until pain is controlled. Results Pelvis/left femur x-rays 10/13/18: Displaced basicervical femoral neck fracture. Total knee arthroplasty, implants in anatomic alignment. Bilateral tibia/fibula x-rays 10/13/18: No obvious acute fractures. Intact hardware of distal tibia and fibula. Total knee arthroplasty, bilateral knees. Lumbar spine x-ray 10/13/18: Degenerative changes of the spine. No compression deformities. - Labs Labs: Abnormal Lab Results - Last 24 Hours (Table) 10/13/18 10/13/18 10/13/18 Range/Units 11:40 11:40 17:16 WBC 24.6 H (3.8-10.6) k/uL RBC 2.99 L (3.80-5.40) m/uL Hgb 9.6 L (11.4-16.0) gm/dL Hct 30.8 L (34.0-46.0) % MCV 103.1 H (80.0-100.0) fL RDW 16.0 H (11.5-15.5) % Plt Count 568 H (150-450) k/uL Neutrophils # 20.3 H (1.3-7.7) k/uL Monocytes # 1.7 H (0-1.0) k/uL Potassium 5.8 H (3.5-5.1) mmol/L Carbon Dioxide 19 L (22-30) mmol/L BUN 38 H (7-17) mg/dL Creatinine 2.37 H (0.52-1.04) mg/dL Glucose 157 H (74-99) mg/dL POC Glucose (mg/dL) 132 H (75-99) mg/dL Total Protein 8.5 H (6.3-8.2) g/dL H & H 10/13/18 Range/Units 11:40 Hgb 9.6 L (11.4-16.0) gm/dL Hct 30.8 L (34.0-46.0) % Coagulation 10/13/18 Range/Units 12:08 INR 1.0 (<1.2) Result Diagrams: 10/13/18 11:40 10/13/18 11:40 Assessment and Plan Assessment: Displaced basicervical femoral neck fracture, left. Plan: - The clinical and x-ray findings were discussed with the patient. We will plan on a short IM nail of the left femur tomorrow afternoon with Dr. Curiel, pending medical clearance and consent. - Strict non-weight bearing of the left lower extremity. Ice and elevate left hip for pain and swelling control. - Continue current pain management. - Internal medicine consultation for medical management. - NPO diet after midnight. Patient discussed with Dr. Curiel.
[2018-10-13] MEDS: HYDROmorphone 0.5 MG/0.5 ML SYRINGE IVP PRN (17:53)
[2018-10-13 18:36] LABS: Appearance,Urine Turbid (Clear); Bilirubin,Urine Negative (Negative); Blood,Urine Moderate (Negative); Color,Urine Yellow; Glucose,Urine (UA) Negative (Negative); Ketones,Urine Negative (Negative); Leukocyte Esterase,Urine Large (Negative); Nitrite,Urine Negative (Negative); PH, Urine 6.5 (5.0-8.0); Protein,Urine 3+ (Negative); RBC,Urine 87 /hpf (0-5); Urobilinogen,Urine <2.0 mg/dL (<2.0)
[2018-10-13] MEDS ORDERED: LEVOFLOXACIN 250MG-D5W PMX 250 MG in DEXTROSE/WATER 1 50ML.BAG IVPB SCH (19:00)
[2018-10-13] MEDS: FERROUS SULFATE 325 MG TAB PO SCH (19:10)
[2018-10-13] MEDS: SODIUM BICARBONATE TAB 650 MG TAB PO SCH (19:10)
[2018-10-13] MEDS: INSULIN ASPART (NovoLOG) 100 UNIT/ML VIAL SQ SCH (19:17)
[2018-10-13 20:11] LABS: Glucose,Whole Blood 144 mg/dL (75-99)
[2018-10-13] MEDS: ALLOPURINOL 100 MG TAB PO SCH (21:53)
[2018-10-13] MEDS: DOCUSATE 100 MG CAP PO SCH (21:53)
[2018-10-13] MEDS: GABAPENTIN 300 MG CAP PO SCH (21:53)
[2018-10-13] MEDS: SODIUM CHLORIDE 0.9% 1,000 ML IV SCH (21:57)
[2018-10-14] MEDS: HYDROmorphone 0.5 MG/0.5 ML SYRINGE IVP PRN ×3 (05:36→20:22)
[2018-10-14 06:55] LABS: Glucose,Whole Blood 147 mg/dL (75-99)
--- NOTE | 2018-10-14 08:30 | P.CONS ---
History of Present Illness - Reason for Consult Consult date: 10/14/18 Chronic urinary tract infection - History of Present Illness This is an 82-year-old female with 24-hour caregivers. Patient rolled out of bed presented to hospital with back pain and left hip pain found to have a left hip fractures scheduled for IM nailing this afternoon with Dr. Curiel. Patient also has history of chronic kidney disease stage IV and nephrology is on consult. Patient presented afebrile, white count 24.6, potassium 5.8 treated with Kayexalate, BUN 38 and creatinine 2.37. Urinalysis was turbid, blood moderate, leukoesterase large, RBCs 87, wbc's greater than 182 and a BBC clumps many. Aguila catheter has been placed. Patient apparently has recurrent or chronic urinary tract infections and thus this ID consult was requested. Patient is unable to provide any information. Review of Systems ROS unobtainable: due to mental status Past Medical History Past Medical History: Coronary Artery Disease (CAD), Cancer (Breast cancer status post right mastectomy.), Diabetes Mellitus (Diet-controlled), GERD/Ref lux, Hearing Disorder / Deafness, Hyperlipidemia, Hypertension, Osteoarthritis (OA), Renal Disease Additional Past Medical History / Comment(s): NIDDM now diet controlled after wt loss, neuropathy bilateral feet, L ankle/foot surgery d/t injury caused by mediboot, , past R foot ulcers now healed, chronic kidney disease stage IV, chronic anemia, aortic stenosis, bowel obstructions, UTIs, UTI with sepsis, R breast cancer with surgery only, bilateral [place], low back pain, bilateral sciatica, arthritis multiple joints. History of Any Multi-Drug Resistant Organisms: MRSA Year Discovered:: 06/02/15 MDRO Source:: Right Foot Past Surgical History: Adenoidectomy, Appendectomy, Back Surgery, Bladder Surgery, Bowel Resection, Breast Surgery, Heart Catheterization With Stent, He rnia Repair, Orthopedic Surgery, Tonsillectomy, Tubal Ligation Additional Past Surgical History / Comment(s): R ankle surgery d/t trauma caused by mediboot, L ankle fracture with surgery, bilateral total knee arthroplasties, low back surgery, R breast mastectomy, umbilical hernia repair, D&C, bilateral cataract removals/lens implants, bladder suspensions, colonoscopies. Past Anesthesia/Blood Transfusion Reactions: No Reported Reaction Date of Last Stent Placement:: 2002 Smoking Status: Never smoker - Past Family History Mother Family Medical History: CVA/TIA Brother(s) Family Medical History: Cancer Father History Unknown: Yes Additional Family Medical History / Comment(s): Pt did not have much contact with her father. Medications and Allergies Home Medications Medication Instructions Recorded Confirmed Type Aspirin [Adult Low Dose Aspirin EC] 81 mg PO DAILY 05/23/15 10/13/18 History Lovastatin [Mevacor] 20 mg PO DAILY 05/23/15 10/13/18 History Metoprolol Tartrate [Lopressor] 50 mg PO DAILY 05/23/15 10/13/18 History HYDROcodone/APAP 5-325MG [[place] 1 tab PO BID PRN 05/26/15 10/13/18 History 5-325] Gabapentin [Neurontin] 300 mg PO BID 09/02/17 10/13/18 History Docusate [Colace] 100 mg PO BID 12/20/17 10/13/18 History Ferrous Sulfate [Iron (65 MG 325 mg PO AC-TID 12/20/17 10/13/18 History Elemental)] Furosemide [Lasix] 20 mg PO DAILY 12/20/17 10/13/18 History Allopurinol [Zyloprim] 100 mg PO BID 03/25/18 10/13/18 History Ranitidine HCl 300 mg PO DAILY 03/25/18 10/13/18 History amLODIPine [Norvasc] 2.5 mg PO DAILY #30 tab 03/28/18 10/13/18 Rx Sodium Bicarbonate Tab 650 mg PO DAILY 10/13/18 10/13/18 History Allergies Allergy/AdvReac Type Severity Reaction Status Date / Time Penicillins Allergy Anaphylaxis Verified 10/13/18 09:47 procaine HCl [From Novocain] Allergy Unknown Verified 10/13/18 09:47 alprazolam [From Xanax] AdvReac Hallucinati Verified 10/13/18 09:47 ons Physical Exam Vitals: Vital Signs Temp Pulse Pulse Pulse Resp BP BP 10/14/18 07:00 98.0 F 80 17 114/56 10/14/18 01:50 98.0 F 78 16 122/81 10/13/18 20:30 97.8 F 77 17 139/83 10/13/18 14:46 97.8 F 74 16 148/76 10/13/18 12:32 97.5 F L 89 18 10/13/18 11:30 97.6 F 70 18 134/62 10/13/18 09:27 97.6 F 75 18 131/53 BP Pulse Ox 10/14/18 07:00 95 10/14/18 01:50 90 L 10/13/18 20:30 92 L 10/13/18 14:46 98 10/13/18 12:32 167/50 92 L 10/13/18 11:30 96 10/13/18 09:27 96 Intake and Output 10/13/18 10/14/18 10/14/18 22:59 06:59 14:59 Intake Total 20 Output Total 275 Balance 20 -275 Intake: Intake, IV Titration 20 Amount Sodium Chloride 0.9% 1, 20 000 ml @ 20 mls/hr IV . Q24H [facility] Rx#:[id number] Output: Urine 275 Other: Voiding Method Indwelling Catheter Indwelling Catheter Gen: This is a morbidly obese 82-year-old female. Patient is resting in bed and appears to be comfortable. HEENT: Head is atraumatic, normocephalic. Pupils equal, round. Sclerae is anic teric. Oral mucous membranes are moist. No thrush noted. Dentition is in poor order. NECK: Supple. No JVD. No lymphadenopathy. No thyromegaly. LUNGS: Clear to auscultation. No wheezes or rhonchi. No intercostal retractions. HEART: Regular rate and rhythm. 3/6 systolic murmur. ABDOMEN: Soft. Bowel sounds are present. No masses. No tenderness. No suprapubic tenderness. Aguila catheter in place draining cloudy urine. EXTREMITIES: No pedal edema. Dorsalis pedis +1 bilaterally. Left leg is externally rotated and shortened. NEUROLOGICAL: Patient is awake, alert and appears to be oriented 1. She is unable to answer questions and follow directions. Results Results: Laboratory Results WBC 24.6 k/uL (3.8-10.6) H 10/13/18 11:40 RBC 2.99 m/uL (3.80-5.40) L 10/13/18 11:40 Hgb 9.6 gm/dL (11.4-16.0) L 10/13/18 11:40 Hct 30.8 % (34.0-46.0) L 10/13/18 11:40 MCV 103.1 fL (80.0-100.0) H 10/13/18 11:40 MCH 32.2 pg (25.0-35.0) 10/13/18 11:40 MCHC 31.2 g/dL (31.0-37.0) 10/13/18 11:40 RDW 16.0 % (11.5-15.5) H 10/13/18 11:40 Plt Count 568 k/uL (150-450) H 10/13/18 11:40 Neutrophils % 83 % 10/13/18 11:40 Lymphocytes % 7 % 10/13/18 11:40 Monocytes % 7 % 10/13/18 11:40 Eosinophils % 0 % 10/13/18 11:40 Basophils % 0 % 10/13/18 11:40 Neutrophils # 20.3 k/uL (1.3-7.7) H 10/13/18 11:40 Lymphocytes # 1.7 k/uL (1.0-4.8) 10/13/18 11:40 Monocytes # 1.7 k/uL (0-1.0) H 10/13/18 11:40 Eosinophils # 0.1 k/uL (0-0.7) 10/13/18 11:40 Basophils # 0.1 k/uL (0-0.2) 10/13/18 11:40 Hypochromasia Slight 10/13/18 11:40 Macrocytosis Slight 10/13/18 11:40 PT 10.8 sec (9.0-12.0) 10/13/18 12:08 INR 1.0 (<1.2) 10/13/18 12:08 Sodium 137 mmol/L (137-145) 10/13/18 11:40 Potassium 5.8 mmol/L (3.5-5.1) H 10/13/18 11:40 Chloride 101 mmol/L (98-107) 10/13/18 11:40 Carbon Dioxide 19 mmol/L (22-30) L 10/13/18 11:40 Anion Gap 17 mmol/L 10/13/18 11:40 BUN 38 mg/dL (7-17) H 10/13/18 11:40 Creatinine 2.37 mg/dL (0.52-1.04) H 10/13/18 11:40 Est GFR (CKD-EPI)AfAm 21 (>60 ml/min/1.73 sqM) 10/13/18 11:40 Est GFR (CKD-EPI)NonAf 18 (>60 ml/min/1.73 sqM) 10/13/18 11:40 Glucose 157 mg/dL (74-99) H 10/13/18 11:40 POC Glucose (mg/dL) 147 mg/dL (75-99) H 10/14/18 06:54 POC Glu Electric Meter Repairer Apprentice ID Joselyn Magallanes 10/14/18 06:54 Calcium 9.3 mg/dL (8.4-10.2) 10/13/18 11:40 Total Bilirubin 0.5 mg/dL (0.2-1.3) 10/13/18 11:40 AST 34 U/L (14-36) 10/13/18 11:40 ALT 24 U/L (9-52) 10/13/18 11:40 Alkaline Phosphatase 107 U/L (38-126) 10/13/18 11:40 Total Protein 8.5 g/dL (6.3-8.2) H 10/13/18 11:40 Albumin 4.4 g/dL (3.5-5.0) 10/13/18 11:40 Urine Color Yellow 10/13/18 17:45 Urine Appearance Turbid (Clear) H 10/13/18 17:45 Urine pH 6.5 (5.0-8.0) 10/13/18 17:45 Ur Specific [place] 1.020 (1.001-1.035) 10/13/18 17:45 Urine Protein 3+ (Negative) H 10/13/18 17:45 Urine Glucose (UA) Negative (Negative) 10/13/18 17:45 Urine Ketones Negative (Negative) 10/13/18 17:45 Urine Blood Moderate (Negative) H 10/13/18 17:45 Urine Nitrite Negative (Negative) 10/13/18 17:45 Urine Bilirubin Negative (Negative) 10/13/18 17:45 Urine Urobilinogen <2.0 mg/dL (<2.0) 10/13/18 17:45 Ur Leukocyte Esterase Large (Negative) H 10/13/18 17:45 Urine RBC 87 /hpf (0-5) H 10/13/18 17:45 Urine WBC >182 /hpf (0-5) H 10/13/18 17:45 Urine WBC Clumps Many /hpf (None) H 10/13/18 17:45 CBC & Chem 7: 10/13/18 11:40 10/13/18 11:40 Labs: Abnormal Lab Results - Last 24 Hours (Table) 10/13/18 10/13/18 10/13/18 Range/Units 11:40 11:40 17:16 WBC 24.6 H (3.8-10.6) k/uL RBC 2.99 L (3.80-5.40) m/uL Hgb 9.6 L (11.4-16.0) gm/dL Hct 30.8 L (34.0-46.0) % MCV 103.1 H (80.0-100.0) fL RDW 16.0 H (11.5-15.5) % Plt Count 568 H (150-450) k/uL Neutrophils # 20.3 H (1.3-7.7) k/uL Monocytes # 1.7 H (0-1.0) k/uL Potassium 5.8 H (3.5-5.1) mmol/L Carbon Dioxide 19 L (22-30) mmol/L BUN 38 H (7-17) mg/dL Creatinine 2.37 H (0.52-1.04) mg/dL Glucose 157 H (74-99) mg/dL POC Glucose (mg/dL) 132 H (75-99) mg/dL Total Protein 8.5 H (6.3-8.2) g/dL Urine Appearance (Clear) Urine Protein (Negative) Urine Blood (Negative) Ur Leukocyte Esterase (Negative) Urine RBC (0-5) /hpf Urine WBC (0-5) /hpf Urine WBC Clumps (None) /hpf 10/13/18 10/13/18 10/14/18 Range/Units 17:45 20:09 06:54 WBC (3.8-10.6) k/uL RBC (3.80-5.40) m/uL Hgb (11.4-16.0) gm/dL Hct (34.0-46.0) % MCV (80.0-100.0) fL RDW (11.5-15.5) % Plt Count (150-450) k/uL Neutrophils # (1.3-7.7) k/uL Monocytes # (0-1.0) k/uL Potassium (3.5-5.1) mmol/L Carbon Dioxide (22-30) mmol/L BUN (7-17) mg/dL Creatinine (0.52-1.04) mg/dL Glucose (74-99) mg/dL POC Glucose (mg/dL) 144 H 147 H (75-99) mg/dL Total Protein (6.3-8.2) g/dL Urine Appearance Turbid H (Clear) Urine Protein 3+ H (Negative) Urine Blood Moderate H (Negative) Ur Leukocyte Esterase Large H (Negative) Urine RBC 87 H (0-5) /hpf Urine WBC >182 H (0-5) /hpf Urine WBC Clumps Many H (None) /hpf Microbiology - Last 24 Hours (Table) 10/13/18 17:45 Urine Culture - Preliminary Urine,Voided Assessment and Plan Plan: This is an 82-year-old female who presented to the hospital status post fall with left hip fracture scheduled for IM nailing this afternoon. Marvin downs also presented with acute urinary tract infection, chronic kidney disease stage IV with hyperkalemia with history of diabetes mellitus type 2, moderate aortic stenosis. Urine culture has been obtained and is in process. Previous urine cultures reviewed and patient started on ceftriaxone. Most recent urine culture from May of this year was positive for E. coli and Proteus susceptible to ceftriaxone. Continue supportive care. Further recommendations as patient progresses. The above dictated assessment and findings were discussed with Dr. Kapoor. The impression and plan of care have been directed as dictated. Suzanna Fam nurse practitioner acting as scribe for Dr. Kapoor.
--- NOTE | 2018-10-14 08:45 | P.PN ---
Subjective Progress Note Date: 10/14/18 This patient is an 82-year-old female with a past medical history of bilateral total knee arthroplasty, prior left foot and ankle surgery in 2006, hypertension, hyperlipidemia, history of breast cancer, chronic kidney disease, GERD, coronary artery disease, and bilateral sciatica that presented to [facility] emergency department on 10/13/18 via EMS after sustaining a ground-level fall. The patient states she is getting out of bed today when she fell, landing on her left side. Patient was not able to get off the ground, or ambulate. She states she called for help for her daughter, who called EMS. On presentation to the emergency department, the patient was found to have a left basicervical femoral neck fracture. The patient was admitted under the care of Dr. Curiel with consults placed to internal medicine for medical management. Per nursing, the patient's family is out of town at this time. She has a animal care assistant that presents to her home to assist with activities of daily living. Per her home health nurse, patient has had issues with recurrent UTIs, which have resulted in confusion. Patient's home health nurse states she has remained confused from her most recent UTI. She uses a walker at baseline, and lives along in the home. The patient is a very poor historian. At the time of exam, the patient states her pain is localized to the left hip, and at the beginning of my exam she states that she is also experiencing back pain. She also notes she is experiencing pain radiating down bilateral lower extremities, although she denies this when asked about this pain pain later in my exam. It appears taht with movement, she localizes her pain explicitly to the left hip. She denies pain in the upper extremities. She denies bowel or bladder dysfunction. She denies additional complaints at this time. 10/14/18: Patient is examined bedside this morning. The patient appeared to have asked him is unable to answer most questions. Internal medicine is consulted infectious disease and nephrology for medical clearance prior to surgery today. The patient states her pain is currently well-controlled. The pain is exacerbated with movement. Patient localizes her pain to her left hip this morning. Patient denies any new complaints today. Vital signs stable. Objective - Vital Signs Vital signs: Vital Signs Temp 98.0 F 10/14/18 07:00 Pulse 80 08/27/19 07:00 Resp 17 10/14/18 07:00 BP 114/56 10/14/18 07:00 Pulse Ox 95 10/14/18 07:00 Intake & Output 10/13/18 10/14/18 10/14/18 18:59 06:59 18:59 Intake Total 20 Output Total 600 275 Balance -600 -255 Weight 102.058 kg Intake: Intake, IV Titration 20 Amount Sodium Chloride 0.9% 1, 20 000 ml @ 20 mls/hr IV . Q24H [facility] Rx#:[id number] Output: Urine 600 275 Uretheral (Aguila) 300 Other: Voiding Method Indwelling Catheter Indwelling Catheter - Exam On examination, the patient is lying in bed in no apparent distress. She is alert, she is able to answer questions and follow commands when asked. Although, she does not appear oriented to time or place. On inspection, the left lower extremity is shortened and externally rotated. There are healed incisions about the bilateral anterior knees, as well as the left ankle. There is extreme pain on palpation of the left hip. There appears to be no pain on palpation of the distal femur, knee, ankle, or foot. Patient has good range of motion of the left ankle and foot. The left lower extremity is warm and well-perfused, with brisk capillary refill of the toes. When asked to sit up for a back examination, patient states she cannot due to pain in the left hip. - Labs CBC & Chem 7: 10/13/18 11:40 10/13/18 11:40 Labs: Abnormal Lab Results - Last 24 Hours (Table) 10/13/18 10/13/18 10/13/18 Range/Units 11:40 11:40 17:16 WBC 24.6 H (3.8-10.6) k/uL RBC 2.99 L (3.80-5.40) m/uL Hgb 9.6 L (11.4-16.0) gm/dL Hct 30.8 L (34.0-46.0) % MCV 103.1 H (80.0-100.0) fL RDW 16.0 H (11.5-15.5) % Plt Count 568 H (150-450) k/uL Neutrophils # 20.3 H (1.3-7.7) k/uL Monocytes # 1.7 H (0-1.0) k/uL Potassium 5.8 H (3.5-5.1) mmol/L Carbon Dioxide 19 L (22-30) mmol/L BUN 38 H (7-17) mg/dL Creatinine 2.37 H (0.52-1.04) mg/dL Glucose 157 H (74-99) mg/dL POC Glucose (mg/dL) 132 H (75-99) mg/dL Total Protein 8.5 H (6.3-8.2) g/dL Urine Appearance (Clear) Urine Protein (Negative) Urine Blood (Negative) Ur Leukocyte Esterase (Negative) Urine RBC (0-5) /hpf Urine WBC (0-5) /hpf Urine WBC Clumps (None) /hpf 10/13/18 10/13/18 10/14/18 Range/Units 17:45 20:09 06:54 WBC (3.8-10.6) k/uL RBC (3.80-5.40) m/uL Hgb (11.4-16.0) gm/dL Hct (34.0-46.0) % MCV (80.0-100.0) fL RDW (11.5-15.5) % Plt Count (150-450) k/uL Neutrophils # (1.3-7.7) k/uL Monocytes # (0-1.0) k/uL Potassium (3.5-5.1) mmol/L Carbon Dioxide (22-30) mmol/L BUN (7-17) mg/dL Creatinine (0.52-1.04) mg/dL Glucose (74-99) mg/dL POC Glucose (mg/dL) 144 H 147 H (75-99) mg/dL Total Protein (6.3-8.2) g/dL Urine Appearance Turbid H (Clear) Urine Protein 3+ H (Negative) Urine Blood Moderate H (Negative) Ur Leukocyte Esterase Large H (Negative) Urine RBC 87 H (0-5) /hpf Urine WBC >182 H (0-5) /hpf Urine WBC Clumps Many H (None) /hpf Microbiology - Last 24 Hours (Table) 10/13/18 17:45 Urine Culture - Preliminary Urine,Voided Assessment and Plan Assessment: Displaced basicervical femoral neck fracture, left. Plan: - We will plan on a short IM nail of the left femur this afternoon with Dr. Curiel, pending medical clearance and consent. - Strict non-weight bearing of the left lower extremity. Ice and elevate left hip for pain and swelling control. - Continue current pain management. - Medical management per internal medicine. Infectious disease and nephrology consult as well for medical clearance. - NPO diet. Patient discussed with Dr. Curiel.
[2018-10-14 08:47] LABS: Anisocytosis Slight; HGB 8.3 gm/dL (11.4-16.0); Hypochromasia Slight; MCH 33.2 pg (25.0-35.0); MCHC 31.8 g/dL (31.0-37.0); MCV 104.5 fL (80.0-100.0); Macrocytosis Moderate; Mean Platelet Volume 7.4; Platelet Count 485 k/uL (150-450); RBC 2.49 m/uL (3.80-5.40); RDW 16.3 % (11.5-15.5); WBC 13.1 k/uL (3.8-10.6)
[2018-10-14] MEDS ORDERED: amLODIPine 2.5 MG TAB PO SCH (09:00)
[2018-10-14] MEDS: METOPROLOL TARTRATE 50 MG TAB PO SCH (09:42)
[2018-10-14] MEDS: INSULIN ASPART (NovoLOG) 100 UNIT/ML VIAL SQ SCH ×3 (10:43→17:49)
[2018-10-14] MEDS: FERROUS SULFATE 325 MG TAB PO SCH ×3 (10:43→16:42)
[2018-10-14] MEDS: ASPIRIN 81 MG PO SCH (10:44)
[2018-10-14] MEDS: SODIUM BICARBONATE TAB 650 MG TAB PO SCH (10:44)
[2018-10-14] MEDS: ALLOPURINOL 100 MG TAB PO SCH ×2 (10:44→22:15)
[2018-10-14] MEDS: FUROSEMIDE 20 MG TAB PO SCH (10:44)
[2018-10-14] MEDS: FAMOTIDINE 20 MG TAB PO SCH (10:44)
[2018-10-14] MEDS: DOCUSATE 100 MG CAP PO SCH ×2 (10:44→22:15)
[2018-10-14] MEDS: GABAPENTIN 300 MG CAP PO SCH ×2 (10:44→22:15)
[2018-10-14] MEDS: amLODIPine 2.5 MG TAB PO SCH (10:44)
--- NOTE | 2018-10-14 11:07 | P.PN ---
Subjective Progress Note Date: 10/14/18 Mrs. Manzo is slightly more confused today but nurse reported that she got Dilaudid about an hour ago for her left hip pain. Noted that orthopedic wants medical clearance before proceeding with surgery for the repair of left hip fracture. It was also noted that patient's white count is now 13,000 which is much improved although differential is pending and basic panel is also pending which was ordered to review hyperkalemia noted yesterday. Patient was given Kayexalate treatment and repeat blood work is pending. Patient denies chest pain, shortness of breath, nausea, vomiting, diarrhea but I doubt the reliability due to her slight confusion at this point from narcotic use to control pain. Objective - Vital Signs Vital signs: Vital Signs Temp 98.0 F 10/14/18 07:00 Pulse 80 10/14/18 07:00 Resp 17 10/14/18 07:00 BP 114/56 10/14/18 07:00 Pulse Ox 95 10/14/18 07:00 Intake & Output 10/13/18 10/14/18 10/14/18 18:59 06:59 18:59 Intake Total 20 Output Total 600 275 Balance -600 -255 Weight 102.058 kg Intake: Intake, IV Titration 20 Amount Sodium Chloride 0.9% 1, 20 000 ml @ 20 mls/hr IV . Q24H [facility] Rx#:[id number] Output: Urine 600 275 Uretheral ([place]) 300 Other: Voiding Method Indwelling Catheter Indwelling Catheter Indwelling Catheter - Constitutional General appearance: Present: cooperative, no acute distress - EENT Eyes: Present: EOMI, normal appearance ENT: Present: hearing grossly normal, NA/AT - Neck Neck: Present: normal ROM. Absent: lymphadenopathy, rigidity, stridor, thyromegaly - Respiratory Respiratory: bilateral: CTA, diminished (Due to poor inspiratory effort.), negative: rales, rhonchi, wheezing - Cardiovascular Rhythm: regular Heart sounds: normal: S1, S2 Abnormal Heart Sounds: Absent: systolic murmur, diastolic murmur, S3 Gallop, S4 Gallop - Gastrointestinal General gastrointestinal: Present: normal bowel sounds, soft. Absent: distended, rigid, tenderness - Neurologic Neurologic: Present: CNII-XII intact. Absent: focal deficits - Psychiatric Psychiatric: Present: A&O x's 3, appropriate affect - Allied health notes Allied health notes reviewed: nursing - Labs CBC & Chem 7: 10/14/18 07:58 10/13/18 11:40 Labs: Abnormal Lab Results - Last 24 Hours (Table) 10/13/18 10/13/18 10/13/18 Range/Units 11:40 11:40 17:16 WBC 24.6 H (3.8-10.6) k/uL RBC 2.99 L (3.80-5.40) m/uL Hgb 9.6 L (11.4-16.0) gm/dL Hct 30.8 L (34.0-46.0) % MCV 103.1 H (80.0-100.0) fL RDW 16.0 H (11.5-15.5) % Plt Count 568 H (150-450) k/uL Neutrophils # 20.3 H (1.3-7.7) k/uL Monocytes # 1.7 H (0-1.0) k/uL Potassium 5.8 H (3.5-5.1) mmol/L Carbon Dioxide 19 L (22-30) mmol/L BUN 38 H (7-17) mg/dL Creatinine 2.37 H (0.52-1.04) mg/dL Glucose 157 H (74-99) mg/dL POC Glucose (mg/dL) 132 H (75-99) mg/dL Total Protein 8.5 H (6.3-8.2) g/dL Urine Appearance (Clear) Urine Protein (Negative) Urine Blood (Negative) Ur Leukocyte Esterase (Negative) Urine RBC (0-5) /hpf Urine WBC (0-5) /hpf Urine WBC Clumps (None) /hpf 10/13/18 10/13/18 10/14/18 Range/Units 17:45 20:09 06:54 WBC (3.8-10.6) k/uL RBC (3.80-5.40) m/uL Hgb (11.4-16.0) gm/dL Hct (34.0-46.0) % MCV (80.0-100.0) fL RDW (11.5-15.5) % Plt Count (150-450) k/uL Neutrophils # (1.3-7.7) k/uL Monocytes # (0-1.0) k/uL Potassium (3.5-5.1) mmol/L Carbon Dioxide (22-30) mmol/L BUN (7-17) mg/dL Creatinine (0.52-1.04) mg/dL Glucose (74-99) mg/dL POC Glucose (mg/dL) 144 H 147 H (75-99) mg/dL Total Protein (6.3-8.2) g/dL Urine Appearance Turbid H (Clear) Urine Protein 3+ H (Negative) Urine Blood Moderate H (Negative) Ur Leukocyte Esterase Large H (Negative) Urine RBC 87 H (0-5) /hpf Urine WBC >182 H (0-5) /hpf Urine WBC Clumps Many H (None) /hpf 10/14/18 Range/Units 07:58 WBC 13.1 H (3.8-10.6) k/uL RBC 2.49 L (3.80-5.40) m/uL Hgb 8.3 L (11.4-16.0) gm/dL Hct 26.0 L (34.0-46.0) % MCV 104.5 H (80.0-100.0) fL RDW 16.3 H (11.5-15.5) % Plt Count 485 H (150-450) k/uL Neutrophils # (1.3-7.7) k/uL Monocytes # (0-1.0) k/uL Potassium (3.5-5.1) mmol/L Carbon Dioxide (22-30) mmol/L BUN (7-17) mg/dL Creatinine (0.52-1.04) mg/dL Glucose (74-99) mg/dL POC Glucose (mg/dL) (75-99) mg/dL Total Protein (6.3-8.2) g/dL Urine Appearance (Clear) Urine Protein (Negative) Urine Blood (Negative) Ur Leukocyte Esterase (Negative) Urine RBC (0-5) /hpf Urine WBC (0-5) /hpf Urine WBC Clumps (None) /hpf Microbiology - Last 24 Hours (Table) 10/13/18 17:45 Urine Culture - Preliminary Urine,Voided Assessment and Plan (1) UTI (urinary tract infection) Current Visit: Yes Status: Acute Priority: High Code(s): N39.0 - URINARY TRACT INFECTION, SITE NOT SPECIFIED SNOMED Code(s): 77771729 (2) Hyperkalemia Current Visit: Yes Status: Acute Priority: High Code(s): E87.5 - HYPERKALE BETSY SNOMED Code(s): 44448121 (3) CKD (chronic kidney disease) Current Visit: Yes Status: Acute Priority: High Code(s): N18.9 - CHRONIC KIDNEY DISEASE, UNSPECIFIED SNOMED Code(s): 685914487 (4) Essential hypertension Current Visit: Yes Status: Acute Priority: Medium Code(s): I10 - ESSENTIAL (PRIMARY) HYPERTENSION SNOMED Code(s): 33566522 (5) Diabetes mellitus type 2 in obese Current Visit: Yes Status: Acute Priority: Medium Code(s): E11.69 - TYPE 2 DIABETES MELLITUS WITH OTHER SPECIFIED COMPLICATION; E66.9 - OBESITY, UNSPECIFIED SNOMED Code(s): 20757044 (6) CAD (coronary artery disease), [place] coronary artery Current Visit: No Status: Acute Priority: Medium Code(s): I25.10 - ATHSCL HEART DISEASE OF [place] CORONARY ARTERY W/O ANG PCTRS SNOMED Code(s): 42675975 70026 (7) Valvular heart disease Current Visit: Yes Status: Acute Priority: Medium Code(s): I38 - ENDOCARDITIS, VALVE UNSPECIFIED SNOMED Code(s): 756177 (8) Hip fracture, left Current Visit: Yes Status: Acute Priority: High Code(s): S72.002A - FRACTURE OF UNSP PART OF NECK OF LEFT FEMUR, INIT SNOMED Code(s): 465717558 Plan: Patient is supposed to be going for IM nail placement to the left hip fracture, which is low risk surgery. Patient did have coronary artery disease history and there is history of remote stent placement. Although there is no active cardiac symptoms reported by the patient at the time of admission. Patient is old and has Low METS activity, but there is no active cardiac symptoms and EKG showed no acute ST-T wave changes. There is evidence of previous inferior NH from the EKG. This place patient in low cardiovascular risk from upcoming low-risk orthopedic surgery, we'll recommend proceed with planned surgery. Patient was referred to infectious disease team for recurrent UTI management and assistant hall director for CKD stage-IV management. It was noted that patient's Levaquin which was started for UTI yesterday has been discontinued and patient has been started on ceftriaxone. Patient does have history of anaphylaxis reaction to pe nicillins which has been verified. Talk to pharmacist on duty and Helen and concern was voiced to her regarding ceftriaxone on face of severe ALLERGY to penicillins. It was recommended not to start ceftriaxone until pharmacy communicates with Dr. Kapoor and if ceftriaxone is really needed then it has to be initiated per desensitization protocol per pharmacist. Helen has been to follow this with Dr. Kapoor and set her recommendations. It was also discussed that Levaquin may be resumed as the dose was suggested to the patient see daily. Patient hyperkalemia was treated currently follow-up reports are pending. Advanced care plan was discussed with the patient but no decision reached. Rest of the medication for chronic stable medical problems will be continued as it is. Total time spent was more than 30 minutes. Time with Patient: Greater than 30
[2018-10-14 11:25] LABS: Band Neutrophils % 1 %; Lymphocytes # (M) 1.44 k/uL (1.0-4.8); Neutrophils % (M) 75 %; Nucleated Red Blood Cells 0 /100 WBC (0-0); Poikilocytosis (M) Present; Total Cells Counted 100
[2018-10-14 11:33] LABS: Glucose,Whole Blood 138 mg/dL (75-99)
[2018-10-14] MEDS: SODIUM CHLORIDE 0.9% 1,000 ML IV SCH (13:25)
[2018-10-14] MEDS ORDERED: IV FLUID CONTINUATION 1,000 ML IV ONE (15:30)
[2018-10-14] MEDS ORDERED: KETAMINE 10 MG/ML 20 ML VIAL ONE (15:44)
[2018-10-14] MEDS ORDERED: fentaNYL (PF) 50 MCG/ML 2 ML AMP ONE (15:44)
[2018-10-14] MEDS ORDERED: MIDAZOLAM 2 MG/2 ML VIAL ONE (15:44)
[2018-10-14] MEDS ORDERED: PHENYLEPHRINE-0.9% NACL SYG 1 MG/10 ML SYRINGE ONE (15:44)
[2018-10-14] MEDS ORDERED: PROPOFOL 10 MG/ML 20 ML VIAL IV ONE (15:44)
[2018-10-14] MEDS ORDERED: ePHEDrine SULFATE/0.9% NACL/PF 50 MG/5 ML SYRINGE IV ONE (15:44)
--- NOTE | 2018-10-14 17:56 | P.OP ---
Date of Procedure: 10/14/18 Preoperative Diagnosis: 1. Left basicervical femoral neck fracture 2. Chronic renal insufficiency 3. Congestive heart failure 4. Obesity with BMI 41.2 5. Chronic urinary tract infection Postoperative Diagnosis: Same Procedure(s) Performed: Operative fixation of left hip fracture with intramedullary hip screw Implants: Synthes TFN short 10 mm nail, 95 mm helical blade, 36 mm distal interlocking screw Anesthesia: spinal Surgeon: Stiven Curiel Financial Services Professional #1: Tate Olivier Estimated Blood Loss (ml): 150 IV fluids (ml): 400 Pathology: none sent Condition: stable Disposition: PACU Indications for Procedure: The patient is a very pleasant 82-year-old female multiple medical problems including congestive heart failure, chronic renal insufficiency, a BMI of 41.2 and chronic urinary tract infections who fell and sustained a left hip fracture. She was seen in the emergency room and admitted to the hospital. She was cleared for surgery. I met with the family prior to surgery to discuss t reatment options. Since the fracture was extracapsular basicervical I recommended operative fixation with an intramedullary hip screw. We discussed potential risks and complications of surgery including but not limited to risk of anesthesia, superficial infection, deep infection, delayed wound healing, superficial wound necrosis, fracture nonunion, fracture malunion, intraoperative fracture, postoperative fracture, malreduction of the fracture, collapse, implant failure, DVT, PE, other medical complications, and possibly loss of life or limb. The portion her family understand these potential risks and provided their written and verbal consent to go forward with surgery. Description of Procedure: The patient's identified in preoperative holding and the correct left leg was marked with my initials. I reviewed the consent form with the patient and her family. All their questions were answered. The patient was then brought back to the operating room by anesthesia. She was positioned on her hospital bed and a spinal anesthetic and preoperative antibiotics were given by anesthesia. She was then carefully transferred onto a [place] table. The affected left leg was placed in a boot and secured with the prefabricated straps and Coban. The unaffected right leg was placed in a well leg desai and positioned to allow intraoperative fluoroscopic imaging. The peroneal post was placed and the foot of the bed was removed. A timeout was performed identifying the correct patient, operative procedure, and extremity. At this point a closed reduction was performed using a combination of longitudinal traction, adduction, and rotation. On the AP view the fracture was fairly well reduced but on the lateral view the anterior neck was flexed. The foot of the bed was elevated slightly improving this. The left leg was then prepped and draped in the standard sterile fashion. I began by making a stab incision just proximal to the greater trochanter. A guidepin was placed just medial to the tip of the greater trochanter on the AP view and centered with the shaft of the femur on the lateral view. The guidewire was advanced to the level of the lesser trochanter. A scalpel was used to open up the soft tissue around the guidepin to allow passage of the opening reamer. The cannulated opening reamer and soft tissue protector were then placed over the guidepin and used to open the proximal aspect of the femur. The guidepin and opening reamer was removed. A 10 mm short TFN nail was dispensed and hooked up to the targeting arm. I verified that the slots of the nail matched up with the targeting arm cannulas. The nail was then inserted into the proximal femur and gently tapped into place. There was some resistance as the distal portion of the nail entered the canal so the nail was withdrawn and a ball-tipped guidewire was placed. I sequentially reamed in half millimeter increments up to an 11 mm reamer. I then removed the guidewire and the nail was easily Into place. The trocar for the helical blade was inserted through the targeting arm and in stab incision was made over the lateral aspect of the femur through the skin and IT band down to the lateral cortex of the femur. The trocar was then brought down to the lateral cortex of the femur. A guidepin was placed up to the fracture and as the guidepin was advanced into the femoral head my faculty research assistant lifted up on the targeting arm to better reduce the neck. Orthogonal fluoroscopic images were taken and on the AP view the guide pin appeared in the low center position and on the lateral view the guide pin appeared to be slightly posterior in the head. I elected to accept this. The guidepin was measured to be 95 mm. A reamer was used to create a path for a 95 mm helical blade. A 95 mm helical blade was then dispensed and gently Into place. The set screw was fully engaged proximally and then brought back To turn to allow for compression. The trocar for the helical blade was then turned clockwise to generate compression to the nail. A trocar was then placed through the slot of the targeting arm for the distal interlocking screw. A stab incision was made on the corresponding aspect the lateral thigh. A drill was used and a 36 mm is still interlocking screws placed. The targeting arm was then removed. Final fluoroscopic images were taken including an AP and a lateral view. The wounds were thoroughly irrigated and closed in layers with 0 Vicryl for the IT band, 2-0 Vicryl for the superficial subcu, and abdoul for the skin. Sterile dressings consisting of Adaptic, 4 x 4, and medium Tegaderms were applied. I verified that all instrument, sponge, and sharp counts were correct. The patient was then awoken from her anesthetic, carefully taken off o f the OR table and transferred to a gurney and then brought to PACU having tolerated the procedure well. Tate Olivier PA-C was required as a skilled faculty research assistant for patient positioning, exposure, reduction of fracture, placement of hardware, closure of wound, and application of dressing. Plan: The patient can remain weightbearing as tolerated on the left leg. She will receive 2 doses of postoperative antibiotics and then I will defer long- term antibiotics for her urinary tract infections to infectious disease. DVT prophylaxis with Lovenox unless internal medicine would like a different medi cation given her renal insufficiency. Discharge planning in progress.
[2018-10-14] MEDS ORDERED: HYDROcodone/APAP 5-325MG 1 EACH TAB PO PRN (18:27)
--- NOTE | 2018-10-14 19:48 | CONS ---
CONSULTATION REASON FOR CONSULT: Renal failure. HISTORY OF PRESENT ILLNESS: The patient is an 82-year-old female with history of chronic kidney disease NKF stage IV with baseline creatinine about 2.3-2.1 mg/dL. 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 The patient was admitted to the hospital after a fall. She apparently rolled out of bed and sustained left hip fracture and scheduled for intramedullary nailing. Patient also has a history of recurrent urinary tract infections. She currently has a Aguila catheter. PAST MEDICAL HISTORY: CKD stage 4, type 2 diabetes, hypertension, history of breast cancer, gastroesophageal reflux disease, hearing loss, osteoarthritis, neuropathy, recurrent urinary tract infection, osteoarthritis, history of MRSA foot infection. PAST SURGICAL HISTORY: Adenoidectomy, appendectomy, bowel resection, coronary stent placement, right ankle surgery, knee arthroplasties bilaterally, right mastectomy, umbilical hernia repair. Cataract surgery, bladder suspensions, colonoscopies. SOCIAL HISTORY: Negative for smoking, drug abuse or alcohol abuse. MEDICATIONS: Medications at home prior to admission include aspirin, Mevacor, Lopressor, [place]. Neurontin, Colace, iron, Lasix, Zyloprim, ranitidine, Norvasc, sodium bicarb. ALLERGIES: Include PENICILLIN, which causes anaphylaxis. NOVOCAIN, XANAX causes hallucinations. EXAMINATION: Patient is comfortable, awake. She is not in any acute distress. Blood pressure this morning 114/56, heart rate 80 per minute. Patient is afebrile. Examination of the heart S1, S2. Examination of the lungs, bilateral breath sounds are heard. Abdomen is soft, nontender, obese. Examination of lower extremities shows trace edema bilaterally. LABS: Reveal hemoglobin 9.6 g/dL yesterday. Sodium was 137, potassium 5.8, BUN 38, serum creatinine 2.37. UA shows 3+ protein, large leukocyte esterase and WBCs more than 182. Urine culture is pending. ASSESSMENT: 1. Chronic kidney disease and NKF stage IV with renal function not far from baseline. The baseline creatinine about 2.1-2.3 mg/dL. The patient has an indwelling Aguila catheter. She is not on any IV fluids. She did receive IV fluids initially. 2. Urinary tract infection with history of recurrent urinary tract infections. Currently, patient has an indwelling Aguila catheter. She is maintained on antibiotics and being followed by ID. 3. Metabolic acidosis. Maintained on sodium bicarb. 4. Hyperkalemia associated with renal failure and metabolic acidosis with previous history of hyperkalemia and tendency towards hyperkalemia. I will continue with the loop diuretics and blood sugar should be controlled. We will also need to avoid constipation and maintain patient on low-potassium diet. I doubt underlying GI bleed is an issue. PLAN: Check labs today. Continue with the Lasix. Continue off IV fluids. Continue sodium bicarb and maintain patient on empiric antibiotics. Thank you for this consultation. We will continue to follow the patient with you during her hospitalization. MMODL / IJN: [id number] /
[2018-10-14 20:06] LABS: Anisocytosis Slight; HCT 27.2 % (34.0-46.0); HGB 8.4 gm/dL (11.4-16.0); Hypochromasia Moderate; MCH 32.6 pg (25.0-35.0); MCHC 30.8 g/dL (31.0-37.0); MCV 105.7 fL (80.0-100.0); Macrocytosis Moderate; Mean Platelet Volume 7.7; Platelet Count 516 k/uL (150-450); RBC 2.58 m/uL (3.80-5.40); RDW 16.1 % (11.5-15.5); WBC 33.2 k/uL (3.8-10.6)
[2018-10-14 20:09] LABS: Hemoglobin A1C 6.3 % (4.0-6.0)
[2018-10-14 20:14] LABS: Glucose,Whole Blood 181 mg/dL (75-99)
[2018-10-14 20:49] LABS: Anisocytosis (M) Present; Band Neutrophils % 4 %; Eosinophils # (M) 0.66 k/uL (0-0.7); Hypochromasia (M) Present; Lymphocytes # (M) 3.65 k/uL (1.0-4.8); Monocytes # (M) 1.99 k/uL (0-1.0); Neutrophils % (M) 77 %; Nucleated Red Blood Cells 0 /100 WBC (0-0); Total Cells Counted 100
--- NOTE | 2018-10-15 00:28 | P.CON ---
Consult Note - . Consult date: 10/14/18 Assessment/Plan:: This is an 82-year-old female with 24-hour caregivers. Patient rolled out of bed presented to hospital with back pain and left hip pain found to have a left hip fractures scheduled for IM nailing this afternoon with Dr. Curiel. Patient also has history of chronic kidney disease stage IV and nephrology is on consult. Patient presented afebrile, white count 24.6, potassium 5.8 treated with Kayexalate, BUN 38 and creatinine 2.37. Urinalysis was turbid, blood moderate, leukoesterase large, RBCs 87, wbc's greater than 182 and a BBC clumps many. Aguila catheter has been placed. 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 Patient is unable to provide any information.Please see the consult note as dictated by nurse practitioner Mrs. Suzanna Fam. The patient has difficulties with significant hardness of hearing, some dementia and under the care of family and caregivers. His a history of many urinary tract infections who now presents to Hospital of urinary tract infection fall and fracture. She was taken to the operating room for the intramedullary nailing of her right hip fracture. With her history antibiotic therapy with ceftriaxone was requested given the prior urine cultures with evidence of quinolone resistance. Consequently will not be utilized. Rocephin will be continued for now and will determine the transition to oral antibiotic therapy at the time of her transfer to rehab. This is all discussed with the family and we'll monitor. I agree with evaluation, assessment and plan as dictated by nurse practitioner Mrs. Suzanna Fam.
[2018-10-15] MEDS ORDERED: HYDROmorphone 0.5 MG/0.5 ML SYRINGE ONE (04:05)
[2018-10-15 06:55] LABS: Glucose,Whole Blood 182 mg/dL (75-99)
[2018-10-15] MEDS: INSULIN ASPART (NovoLOG) 100 UNIT/ML VIAL SQ SCH ×3 (07:41→17:57)
[2018-10-15] MEDS: FERROUS SULFATE 325 MG TAB PO SCH ×4 (07:42→17:57)
--- NOTE | 2018-10-15 08:04 | XR ---
EXAMINATION TYPE: XR Hip Complete LT DATE OF EXAM: 10/14/2018 COMPARISON: NONE HISTORY: Postop TECHNIQUE: One view submitted. FINDINGS: There is postsurgical change in near anatomic alignment. There is soft tissue edema and emphysema. IMPRESSION: 1. Postoperative change. Appears in near-anatomic alignment.
--- NOTE | 2018-10-15 08:20 | P.PN ---
Subjective Progress Note Date: 10/15/18 This patient is an 82-year-old female with a past medical history of bilateral total knee arthroplasty, prior left foot and ankle surgery in 2006, hypertension, hyperlipidemia, history of breast cancer, chronic kidney disease, GERD, coronary artery disease, and bilateral sciatica that presented to [facility] emergency department on 10/13/18 via EMS after sustaining a ground-level fall. The patient states she is getting out of bed today when she fell, landing on her left side. Patient was not able to get off the ground, or ambulate. She states she called for help for her daughter, who called EMS. On presentation to the emergency department, the patient was found to have a left basicervical femoral neck fracture. The patient was admitted under the care of Dr. Curiel with consults placed to internal medicine for medical management. Per nursing, the patient's family is out of town at this time. She has a care aide that presents to her home to assist with activities of daily living. Per her home health nurse, patient has had issues with recurrent UTIs, which have resulted in confusion. Patient's home health nurse states she has remained confused from her most recent UTI. She uses a walker at baseline, and lives along in the home. The patient is a very poor historian. At the time of exam, the patient states her pain is localized to the left hip, and at the beginning of my exam she states that she is also experiencing back pain. She also notes she is experiencing pain radiating down bilateral lower extremities, although she denies this when asked about this pain pain later in my exam. It appears taht with movement, she localizes her pain explicitly to the left hip. She denies pain in the upper extremities. She denies bowel or bladder dysfunction. She denies additional complaints at this time. 10/15/18: Today's postoperative day #1. The patient underwent operative fixation of her left basicervical femoral neck fracture with an intramedullary hip screw on 10/14/18. The patient is examined bedside this morning. The patient is very tired and falling asleep on exam. She states her hip feels "okay". She does not answer any other questions. She voices no other complaints. Vital signs stable. Objective - Vital Signs Vital signs: Vital Signs Temp 97.9 F 10/15/18 01:19 Pulse 70 10/15/18 01:19 Resp 16 10/15/18 01:19 BP 133/72 10/15/18 01:19 Pulse Ox 94 L 10/15/18 01:19 Intake & Output 10/14/18 10/15/18 10/15/18 18:59 06:59 18:59 Intake Total 550 110 Output Total 1350 150 Balance -800 -40 Intake: IV 550 Intake, IV Titration 110 Amount Sodium Chloride 0.9% 1, 60 000 ml @ 20 mls/hr IV . Q24H JOSE A Rx#:[id number] cefTRIAXone 1 gm In 50 Sodium Chloride 0.9% 50 ml @ 100 mls/hr IVPB Q24H JOSE A Rx#:[id number] Output: Urine 1200 150 Estimated Blood Loss 150 Other: Voiding Method Indwelling Catheter Indwelling Catheter - Exam On examination, the patient is lying in bed in no apparent distress. She is awake, although very tired. She does not appear oriented to time or place, she is confused. Breathing appears nonlabored. On inspection of the left hip, there are clean, dry, intact surgical dressings in place. There is no drainage through the dressings. Left lower extremity is warm and well-perfused, with brisk capillary refill of all toes. IV in place of the dorsal left foot. Calves are soft and nontender bilaterally. Urinary catheter in place. Vital signs stable. - Labs CBC & Chem 7: 10/14/18 19:22 10/14/18 07:58 Labs: Abnormal Lab Results - Last 24 Hours (Table) 10/14/18 10/14/18 10/14/18 Range/Units 07:58 07:58 07:58 WBC 13.1 H (3.8-10.6) k/uL RBC 2.49 L (3.80-5.40) m/uL Hgb 8.3 L (11.4-16.0) gm/dL Hct 26.0 L (34.0-46.0) % MCV 104.5 H (80.0-100.0) fL MCHC (31.0-37.0) g/dL RDW 16.3 H (11.5-15.5) % Plt Count 485 H (150-450) k/uL Neutrophils # (Manual) 9.90 H (1.3-7.7) k/uL Monocytes # (Manual) 1.70 H (0-1.0) k/uL Sodium 135 L (137-145) mmol/L Carbon Dioxide 20 L (22-30) mmol/L BUN 41 H (7-17) mg/dL Creatinine 2.41 H (0.52-1.04) mg/dL Glucose 139 H (74-99) mg/dL POC Glucose (mg/dL) (75-99) mg/dL Hemoglobin A1c 6.3 H (4.0-6.0) % 10/14/18 10/14/18 10/14/18 Range/Units 11:22 19:22 20:10 WBC 33.2 H (3.8-10.6) k/uL RBC 2.58 L (3.80-5.40) m/uL Hgb 8.4 L (11.4-16.0) gm/dL Hct 27.2 L (34.0-46.0) % MCV 105.7 H (80.0-100.0) fL MCHC 30.8 L (31.0-37.0) g/dL RDW 16.1 H (11.5-15.5) % Plt Count 516 H (150-450) k/uL Neutrophils # (Manual) 26.80 H (1.3-7.7) k/uL Monocytes # (Manual) 1.99 H (0-1.0) k/uL Sodium (137-145) mmol/L Carbon Dioxide (22-30) mmol/L BUN (7-17) mg/dL Creatinine (0.52-1.04) mg/dL Glucose (74-99) mg/dL POC Glucose (mg/dL) 138 H 181 H (75-99) mg/dL Hemoglobin A1c (4.0-6.0) % 10/15/18 Range/Units 06:53 WBC (3.8-10.6) k/uL RBC (3.80-5.40) m/uL Hgb (11.4-16.0) gm/dL Hct (34.0-46.0) % MCV (80.0-100.0) fL MCHC (31.0-37.0) g/dL RDW (11.5-15.5) % Plt Count (150-450) k/uL Neutrophils # (Manual) (1.3-7.7) k/uL Monocytes # (Manual) (0-1.0) k/uL Sodium (137-145) mmol/L Carbon Dioxide (22-30) mmol/L BUN (7-17) mg/dL Creatinine (0.52-1.04) mg/dL Glucose (74-99) mg/dL POC Glucose (mg/dL) 182 H (75-99) mg/dL Hemoglobin A1c (4.0-6.0) % Microbiology - Last 24 Hours (Table) 10/13/18 17:45 Urine Culture - Final Urine,Voided Assessment and Plan Assessment: Left basicervical femoral neck fracture status-post operative fixation with intramedullary hip screw on 10/14/18. Postoperative day #1. Chronic UTI Leukocytosis Plan: - Weight-bearing as tolerated of the left lower extremity. Ice and elevate the left lower extremity to decrease pain and swelling. - Physical therapy for gait and balance training. - Continue pain management. - Lovenox 30mg for DVT prophylaxis, unless internal medicine will make to manage due to her renal insufficiency. - 2 doses of postoperative antibiotics complete. - UTI management per infectious disease and internal medicine. - Anticipate discharge to subacute rehab within next 1-2 days, pending medical clearance. Patient discussed with Dr. Curiel.
--- NOTE | 2018-10-15 08:54 | FL ---
EXAMINATION TYPE: FL guidance operating room DATE OF EXAM: 10/14/2018 HISTORY: Flouroscopy time 2 minutes and 40 seconds of fluoroscopy provided. IMPRESSION: 1. Fluoroscopy time.
[2018-10-15] MEDS: amLODIPine 2.5 MG TAB PO SCH (09:20)
[2018-10-15] MEDS: ENOXAPARIN 30 MG/0.3 ML SYRINGE SQ SCH (09:26)
[2018-10-15] MEDS: ASPIRIN 81 MG PO SCH (09:26)
[2018-10-15] MEDS: GABAPENTIN 300 MG CAP PO SCH ×2 (09:27→20:44)
[2018-10-15] MEDS: DOCUSATE 100 MG CAP PO SCH ×2 (09:27→20:44)
[2018-10-15] MEDS: METOPROLOL TARTRATE 50 MG TAB PO SCH (09:27)
[2018-10-15] MEDS: FAMOTIDINE 20 MG TAB PO SCH (09:27)
[2018-10-15] MEDS: FUROSEMIDE 20 MG TAB PO SCH (09:27)
[2018-10-15] MEDS: SODIUM BICARBONATE TAB 650 MG TAB PO SCH (09:28)
[2018-10-15] MEDS: ALLOPURINOL 100 MG TAB PO SCH ×2 (09:29→20:44)
[2018-10-15 11:35] LABS: Glucose,Whole Blood 157 mg/dL (75-99)
--- NOTE | 2018-10-15 11:47 | P.PN ---
Subjective Progress Note Date: 10/15/18 Principal diagnosis: Hip fracture Patient was seen and examined. No acute events overnight. Patient pleasantly confused. She complains of left hip pain. Unable to communicate any further. Objective - Vital Signs Vital signs: Vital Signs Temp 97.7 F 10/15/18 06:45 Pulse 102 H 10/15/18 07:00 Resp 15 10/15/18 07:00 BP 104/62 10/15/18 10:30 Pulse Ox 100 10/15/18 07:00 Intake & Output 10/14/18 10/15/18 10/15/18 18:59 06:59 18:59 Intake Total 550 110 Output Total 1350 150 Balance -800 -40 Intake: IV 550 Intake, IV Titration 110 Amount Sodium Chloride 0.9% 1, 60 000 ml @ 20 mls/hr IV . Q24H JOSE A Rx#:[id number] cefTRIAXone 1 gm In 50 Sodium Chloride 0.9% 50 ml @ 100 mls/hr IVPB Q24H JOSE A Rx#:[id number] Output: Urine 1200 150 Estimated Blood Loss 150 Other: Voiding Method Indwelling Catheter Indwelling Catheter - Exam General: [non toxic], [mild distress], [appears at stated age] Derm: [warm], [dry] Head: [atraumatic], [normocephalic], [symmetric] Eyes: [EOMI], [no lid lag], [anicteric sclera] Mouth: [no lip lesion], [mucus membranes moist] Cardiovascular: [S1S2 reg], [tachycardia] Lungs: [Decreased breath sounds with poor effort bilateral], [no rhonchi, no rales] , [no accessory muscle use] Abdominal: [soft], [ nontender to palpation], [no guarding], [no appreciable organomegaly] Ext: [no gross muscle atrophy], [no edema], [no contractures], [left hip dressing clean dry and intact] Neuro: [no focal neuro deficits] Psych: [Pleasantly confused] - Labs CBC & Chem 7: 10/14/18 19:22 10/14/18 07:58 Labs: Abnormal Lab Results - Last 24 Hours (Table) 10/14/18 10/14/18 10/14/18 Range/Units 07:58 07:58 07:58 WBC (3.8-10.6) k/uL RBC (3.80-5.40) m/uL Hgb (11.4-16.0) gm/dL Hct (34.0-46.0) % MCV (80.0-100.0) fL MCHC (31.0-37.0) g/dL RDW (11.5-15.5) % Plt Count (150-450) k/uL Neutrophils # (Manual) 9.90 H (1.3-7.7) k/uL Monocytes # (Manual) 1.70 H (0-1.0) k/uL Sodium 135 L (137-145) mmol/L Carbon Dioxide 20 L (22-30) mmol/L BUN 41 H (7-17) mg/dL Creatinine 2.41 H (0.52-1.04) mg/dL Glucose 139 H (74-99) mg/dL POC Glucose (mg/dL) (75-99) mg/dL Hemoglobin A1c 6.3 H (4.0-6.0) % 10/14/18 10/14/18 10/14/18 Range/Units 11:22 19:22 20:10 WBC 33.2 H (3.8-10.6) k/uL RBC 2.58 L (3.80-5.40) m/uL Hgb 8.4 L (11.4-16.0) gm/dL Hct 27.2 L (34.0-46.0) % MCV 105.7 H (80.0-100.0) fL MCHC 30.8 L (31.0-37.0) g/dL RDW 16.1 H (11.5-15.5) % Plt Count 516 H (150-450) k/uL Neutrophils # (Manual) 26.80 H (1.3-7.7) k/uL Monocytes # (Manual) 1.99 H (0-1.0) k/uL Sodium (137-145) mmol/L Carbon Dioxide (22-30) mmol/L BUN (7-17) mg/dL Creatinine (0.52-1.04) mg/dL Glucose (74-99) mg/dL POC Glucose (mg/dL) 138 H 181 H (75-99) mg/dL Hemoglobin A1c (4.0-6.0) % 10/15/18 Range/Units 06:53 WBC (3.8-10.6) k/uL RBC (3.80-5.40) m/uL Hgb (11.4-16.0) gm/dL Hct (34.0-46.0) % MCV (80.0-100.0) fL MCHC (31.0-37.0) g/dL RDW (11.5-15.5) % Plt Count (150-450) k/uL Neutrophils # (Manual) (1.3-7.7) k/uL Monocytes # (Manual) (0-1.0) k/uL Sodium (137-145) mmol/L Carbon Dioxide (22-30) mmol/L BUN (7-17) mg/dL Creatinine (0.52-1.04) mg/dL Glucose (74-99) mg/dL POC Glucose (mg/dL) 182 H (75-99) mg/dL Hemoglobin A1c (4.0-6.0) % Microbiology - Last 24 Hours (Table) 10/13/18 17:45 Urine Culture - Final Urine,Voided Assessment and Plan Assessment: Urinary tract infection with leukocytosis Anemia, macrocytic with MCV 105.7, from acute blood loss Metabolic acidosis Chronic kidney disease Hypertension Diabetes mellitus CAD Left hip fracture Urinalysis shows large leukocyte esterase. Urine culture negative. Plans: Continue Rocephin 1 g IV daily as per ID recommendations. Can be transitioned to oral antibiotic on discharge. Hemoglobin 8.4, 9.6 on admission. Likely related to acute blood loss. B12 March 2018 within normal limits. Folate August 2017 within normal limits. Plans: Transfuse if hemoglobin less than 7. Repeat CBC tomorrow. Continue iron sulfate. Bicarbonate 20. Likely related to chronic kidney disease. No respiratory compromise. Plans: Continue sodium bicarbonate by mouth. Daily BMP. Follow nephrology consultation. Creatinine 2.41. Appears to be at baseline. Plans: Daily BMP. Avoid nephrotoxins. Follow nephrology consultation. BP 104/62. Plans: Continue amlodipine and metoprolol. Monitor vitals, adjust medications as necessary. [id number] glucose 182. Plans: Insulin sliding scale. Regular Accu-Cheks. Hypoglycemic precautions. Stable. Plans: Continue aspirin and Lipitor. POD 1. Plans: Management as per orthopedic surgery. [Post surgery, stable. Plans for DC to ECF.]
[2018-10-15 12:16] LABS: Anisocytosis Slight; HCT 22.9 % (34.0-46.0); Hypochromasia Marked; MCH 32.2 pg (25.0-35.0); MCHC 29.8 g/dL (31.0-37.0); Macrocytosis Marked; Mean Platelet Volume 7.1; Platelet Count 467 k/uL (150-450); RBC 2.12 m/uL (3.80-5.40); RDW 16.2 % (11.5-15.5); WBC 30.8 k/uL (3.8-10.6)
[2018-10-15 12:22] LABS: Albumin 3.4 g/dL (3.5-5.0); Calcium 9.1 mg/dL (8.4-10.2); Total Bilirubin 0.3 mg/dL (0.2-1.3); Total Protein 6.6 g/dL (6.3-8.2)
[2018-10-15 12:24] LABS: HGB 6.8 gm/dL (11.4-16.0)
[2018-10-15] MEDS: HYDROmorphone 0.5 MG/0.5 ML SYRINGE IVP PRN (13:17)
[2018-10-15 13:45] LABS: Lymphocytes # (M) 2.77 k/uL (1.0-4.8); Monocytes # (M) 9.86 k/uL (0-1.0); Neutrophils % (M) 59 %; Nucleated Red Blood Cells 0 /100 WBC (0-0); Total Cells Counted 100
[2018-10-15 16:54] LABS: Glucose,Whole Blood 129 mg/dL (75-99)
--- NOTE | 2018-10-15 19:07 | PN ---
PROGRESS NOTE Patient is seen for followup for chronic kidney disease and acute kidney injury. Her creatinine has been about 2.3 to 2.4 mg/dL, which was close to her baseline as of yesterday. This morning creatinine is up to 3.3 mg/dL. Patient's hemoglobin dropped to 6.8 g/dL this morning. She has an indwelling Aguila catheter with 24-hour urine output about 1500 mL. Blood pressure has been slightly on the lower side with systolic in the 96 range. Patient is maintained on oral Lasix only at 20 mg p.o. daily. She is not on any IV fluids. On examination today, she is comfortable. Patient was confused. Blood pressure was 104/62, heart rate 74 per minute. She was afebrile. EXAMINATION OF THE HEART: S1 and S2. EXAMINATION OF LUNGS: Bilateral breath sounds are heard. ABDOMEN: Soft, obese, non-tender. Examination of lower extremities shows edema with chronic skin changes. Edema is about 1+ bilaterally. CREDIT COMPLIANCE OFFICER exam cannot be performed in detail. Labs show hemoglobin 6.8, white cell count 30.8. Sodium 139, potassium 5.0, chloride 104. CO2 is 19, BUN 48, creatinine 3.3 mg/dL. Albumin 3.4. ASSESSMENT: 1. Acute kidney injury with serum creatinine up to 3.3 from 2.4 mg/dL yesterday. Patient is nonoliguric. She has an indwelling Aguila catheter. Etiology is likely severe anemia. Hemoglobin dropped to 6.8 g/dL and patient has also been hypotensive with systolic blood pressure in the 90s. She is not on any nephrotoxic medications currently. I will continue off of IV fluids. Repeat labs in a.m. and continue to avoid any other nephrotoxic medications. 2. Severe anemia. Patient is status post packed RBCs transfusion of one unit. No active bleeding noted at this time. 3. Left femoral neck fracture, status post intramedullary hip screw and operative fixation of the left hip fracture done yesterday. 4. Hypotension associated with acute anemia. 5. Chronic kidney disease, stage IV, secondary to nephrosclerosis. 6. Hyperkalemia, currently improved. 7. Metabolic acidosis associated with chronic kidney disease, maintained on sodium bicarb. PLAN: Decrease Lopressor. Hold off on other antihypertensive medications. Repeat labs in a.m. Continue empiric antibiotics. Urine culture was negative. MMODL / IJN: [id number] /
[2018-10-15 20:18] LABS: Anisocytosis Slight; HCT 23.9 % (34.0-46.0); HGB 7.5 gm/dL (11.4-16.0); Hypochromasia Slight; MCH 31.7 pg (25.0-35.0); MCHC 31.2 g/dL (31.0-37.0); Macrocytosis Moderate; Mean Platelet Volume 7.7; Platelet Count 420 k/uL (150-450); RBC 2.35 m/uL (3.80-5.40); RDW 18.5 % (11.5-15.5)
[2018-10-15 20:27] LABS: MCV 101.6 fL (80.0-100.0)
[2018-10-15 20:33] LABS: Glucose,Whole Blood 133 mg/dL (75-99)
[2018-10-15] MEDS: SODIUM CHLORIDE 0.9% 1,000 ML IV SCH (20:45)
--- NOTE | 2018-10-16 01:26 | P.PN ---
Progress Note - Text Progress Note Date: 10/16/18 notified by RN , that patient became hypotensive 3 hours after starting her transfusion, also was complaining of back pain. otherwise , no rash, no chest pain, no bleeding or oozing blood from iv site. no urticaria, no wheezing. no respiratory distress,, no fever. patient was evaluated at bedside, oxygen saturation 99% on 2 L nasal canula, lungs clear to auscultation , BP repeated and was 100/64. patient asymptomatic. blood transfusion ceased, and unit sent back to lab for verification. continue to monitor for now , patient given normal saline for flushing , at 125 cc/hr for 4 hours, then switched to KVO close monitoring of vital sings , and oxygen requirement hold amlodipine, hold parameters on lopressor if systolic blood pressure<100
[2018-10-16] MEDS: HYDROcodone/APAP 5-325MG 1 EACH TAB PO PRN ×2 (03:05→12:50)
[2018-10-16 07:06] LABS: Glucose,Whole Blood 162 mg/dL (75-99)
[2018-10-16] MEDS: INSULIN ASPART (NovoLOG) 100 UNIT/ML VIAL SQ SCH ×3 (07:45→17:20)
[2018-10-16] MEDS: FUROSEMIDE 20 MG TAB PO SCH (07:55)
[2018-10-16] MEDS: ASPIRIN 81 MG PO SCH (07:55)
[2018-10-16 07:56] LABS: Anisocytosis Slight; HCT 22.6 % (34.0-46.0); Hypochromasia Moderate; MCH 31.9 pg (25.0-35.0); MCV 103.2 fL (80.0-100.0); Macrocytosis Moderate; Mean Platelet Volume 7.6; Platelet Count 404 k/uL (150-450); RBC 2.19 m/uL (3.80-5.40); RDW 18.5 % (11.5-15.5); WBC 25.5 k/uL (3.8-10.6)
[2018-10-16] MEDS: GABAPENTIN 300 MG CAP PO SCH ×2 (07:56→21:08)
[2018-10-16] MEDS: ALLOPURINOL 100 MG TAB PO SCH ×2 (07:56→21:08)
[2018-10-16] MEDS: FERROUS SULFATE 325 MG TAB PO SCH ×3 (07:56→17:20)
[2018-10-16] MEDS: DOCUSATE 100 MG CAP PO SCH ×2 (07:56→21:08)
[2018-10-16] MEDS: ATORVASTATIN 10 MG TAB PO SCH (07:57)
[2018-10-16] MEDS: ENOXAPARIN 30 MG/0.3 ML SYRINGE SQ SCH (07:58)
[2018-10-16] MEDS: FAMOTIDINE 20 MG TAB PO SCH (07:58)
[2018-10-16] MEDS: SODIUM BICARBONATE TAB 650 MG TAB PO SCH (07:59)
[2018-10-16] MEDS: METOPROLOL TARTRATE 50 MG TAB PO SCH (07:59)
[2018-10-16 08:57] LABS: Calcium 8.9 mg/dL (8.4-10.2); Potassium 4.5 mmol/L (3.5-5.1)
--- NOTE | 2018-10-16 10:57 | P.PN ---
Subjective Progress Note Date: 10/16/18 This patient is an 82-year-old female with a past medical history of bilateral total knee arthroplasty, prior left foot and ankle surgery in 2006, hypertension, hyperlipidemia, history of breast cancer, chronic kidney disease, GERD, coronary artery disease, and bilateral sciatica that presented to [facility] emergency department on 10/13/18 via EMS after sustaining a ground-level fall. The patient states she is getting out of bed today when she fell, landing on her left side. Patient was not able to get off the ground, or ambulate. She states she called for help for her daughter, who called EMS. On presentation to the emergency department, the patient was found to have a left basicervical femoral neck fracture. The patient was admitted under the care of Dr. Curiel with consults placed to internal medicine for medical management. Per nursing, the patient's family is out of town at this time. She has a career services manager that presents to her home to assist with activities of daily living. Per her home health nurse, patient has had issues with recurrent UTIs, which have resulted in confusion. Patient's home health nurse states she has remained confused from her most recent UTI. She uses a walker at baseline, and lives along in the home. The patient is a very poor historian. At the time of exam, the patient states her pain is localized to the left hip, and at the beginning of my exam she states that she is also experiencing back pain. She also notes she is experiencing pain radiating down bilateral lower extremities, although she denies this when asked about this pain pain later in my exam. It appears taht with movement, she localizes her pain explicitly to the left hip. She denies pain in the upper extremities. She denies bowel or bladder dysfunction. She denies additional complaints at this time. 10/16/18: Today's postoperative day #2. The patient underwent operative fixation of her left basicervical femoral neck fracture with an intramedullary hip screw on 10/14/18. The patient is examined bedside this morning with Dr. Curiel. The patient states her hip pain is well-controlled at the moment. The patient denies any back pain today. Patient does not answer any additional questions. She voices no other complaints. Vital signs stable. Hemoglobin was down to 6.8 yesterday. Per internal medicine, the patient was transfused 1 unit of PRBCs yesterday. She was also complaining of back pain at that time, although patient declines any back pain on exam this morning. Creatinine was also to 3.3, nephrology is following. Objective - Vital Signs Vital signs: Vital Signs Temp 97.9 F 10/16/18 08:37 Pulse 90 10/16/18 08:37 Resp 14 10/16/18 08:37 BP 98/56 10/16/18 08:37 Pulse Ox 97 10/16/18 08:37 Intake & Output 10/15/18 10/16/18 10/16/18 18:59 06:59 18:59 Intake Total 560 200 Output Total 250 225 550 Balance 310 -25 -550 Intake: Intake, IV Titration 160 Amount Sodium Chloride 0.9% 1, 160 000 ml @ 20 mls/hr IV . Q24H [facility] Rx#:[id number] Oral 400 Blood Product 0 200 Rc As-1 Unit 0 200 [id number] Output: Urine 250 225 550 Other: Voiding Method Indwelling Catheter Indwelling Catheter - Exam On examination, the patient is lying in bed in no apparent distress. She is awake, although very tired. She does not appear oriented to time or place, she is confused. Breathing appears nonlabored. On inspection of the left hip, there are clean, dry, intact surgical dressings in place. There is no drainage through the dressings. Left lower extremity is warm and well-perfused, with brisk capillary refill of all toes. Urinary catheter in place. Vital signs stable. - Labs CBC & Chem 7: 10/16/18 06:50 10/16/18 06:50 Labs: Abnormal Lab Results - Last 24 Hours (Table) 10/15/18 10/15/18 10/15/18 Range/Units 11:33 11:33 11:34 WBC 30.8 H (3.8-10.6) k/uL RBC 2.12 L (3.80-5.40) m/uL Hgb 6.8 L* D (11.4-16.0) gm/dL Hct 22.9 L (34.0-46.0) % MCV 108.0 H (80.0-100.0) fL MCHC 29.8 L (31.0-37.0) g/dL RDW 16.2 H (11.5-15.5) % Plt Count 467 H (150-450) k/uL Neutrophils # (Manual) 18.17 H (1.3-7.7) k/uL Monocytes # (Manual) 9.86 H (0-1.0) k/uL Macrocytosis Marked A Carbon Dioxide 19 L (22-30) mmol/L BUN 48 H (7-17) mg/dL Creatinine 3.30 H (0.52-1.04) mg/dL Glucose 159 H (74-99) mg/dL POC Glucose (mg/dL) 157 H (75-99) mg/dL AST 37 H (14-36) U/L Albumin 3.4 L (3.5-5.0) g/dL Crossmatch 10/15/18 10/15/18 10/15/18 Range/Units 14:58 16:52 19:14 WBC 30.0 H (3.8-10.6) k/uL RBC 2.35 L (3.80-5.40) m/uL Hgb 7.5 L (11.4-16.0) gm/dL Hct 23.9 L (34.0-46.0) % MCV 101.6 H D (80.0-100.0) fL MCHC (31.0-37.0) g/dL RDW 18.5 H (11.5-15.5) % Plt Count (150-450) k/uL Neutrophils # (Manual) (1.3-7.7) k/uL Monocytes # (Manual) (0-1.0) k/uL Macrocytosis Carbon Dioxide (22-30) mmol/L BUN (7-17) mg/dL Creatinine (0.52-1.04) mg/dL Glucose (74-99) mg/dL POC Glucose (mg/dL) 129 H (75-99) mg/dL AST (14-36) U/L Albumin (3.5-5.0) g/dL Crossmatch See Detail 10/15/18 10/16/18 10/16/18 Range/Units 20:31 06:50 06:50 WBC 25.5 H (3.8-10.6) k/uL RBC 2.19 L (3.80-5.40) m/uL Hgb 7.0 L (11.4-16.0) gm/dL Hct 22.6 L (34.0-46.0) % MCV 103.2 H (80.0-100.0) fL MCHC (31.0-37.0) g/dL RDW 18.5 H (11.5-15.5) % Plt Count (150-450) k/uL Neutrophils # (Manual) (1.3-7.7) k/uL Monocytes # (Manual) (0-1.0) k/uL Macrocytosis Carbon Dioxide 19 L (22-30) mmol/L BUN 51 H (7-17) mg/dL Creatinine 3.15 H (0.52-1.04) mg/dL Glucose 149 H (74-99) mg/dL POC Glucose (mg/dL) 133 H (75-99) mg/dL AST (14-36) U/L Albumin (3.5-5.0) g/dL Crossmatch 10/16/18 Range/Units 07:05 WBC (3.8-10.6) k/uL RBC (3.80-5.40) m/uL Hgb (11.4-16.0) gm/dL Hct (34.0-46.0) % MCV (80.0-100.0) fL MCHC (31.0-37.0) g/dL RDW (11.5-15.5) % Plt Count (150-450) k/uL Neutrophils # (Manual) (1.3-7.7) k/uL Monocytes # (Manual) (0-1.0) k/uL Macrocytosis Carbon Dioxide (22-30) mmol/L BUN (7-17) mg/dL Creatinine (0.52-1.04) mg/dL Glucose (74-99) mg/dL POC Glucose (mg/dL) 162 H (75-99) mg/dL AST (14-36) U/L Albumin (3.5-5.0) g/dL Crossmatch Assessment and Plan Assessment: Left basicervical femoral neck fracture status-post operative fixation with intramedullary hip screw on 10/14/18. Postoperative day #2. Chronic UTI Leukocytosis Post-operative anemia Plan: - Weight-bearing as tolerated of the left lower extremity. Ice and elevate the left lower extremity to decrease pain and swelling. - Physical therapy for gait and balance training. - Continue pain management. - Lovenox 30mg for DVT prophylaxis, unless internal medicine would like to manage due to her renal insufficiency. - 2 doses of postoperative antibiotics complete. -Postoperative anemia and additional medical management per internal medicine, infectious disease, and nephrology. - Anticipate discharge to subacute rehab. Patient discussed with Dr. Curiel.
[2018-10-16 12:00] LABS: Glucose,Whole Blood 143 mg/dL (75-99)
[2018-10-16 12:29] LABS: Anisocytosis Slight; HCT 25.8 % (34.0-46.0); HGB 7.7 gm/dL (11.4-16.0); Hypochromasia Marked; MCH 31.3 pg (25.0-35.0); MCV 104.3 fL (80.0-100.0); Macrocytosis Moderate; Mean Platelet Volume 8.1; Platelet Count 405 k/uL (150-450); RBC 2.47 m/uL (3.80-5.40); RDW 18.3 % (11.5-15.5); WBC 28.4 k/uL (3.8-10.6)
--- NOTE | 2018-10-16 14:06 | P.DS ---
Providers Date of admission: 10/13/18 10:51 Expected date of discharge: 10/16/18 Attending physician: Jonathan Elias MD Consults: 10/13/18 10:51 Consult Physician Urgent Consulting Provider: Stiven Curiel Consult Reason/Comments: L Hip FX Do you want consulting provider notified?: Yes 10/13/18 17:08 Consult Physician Routine Consulting Provider: Con Mcclellan Consult Reason/Comments: CKD-IV and Hyperkalemia Do you want consulting provider notified?: Yes 10/13/18 19:01 Consult Physician Urgent Consulting Provider: Denver Kapoor Consult Reason/Comments: chronic uti Do you want consulting provider notified?: Yes Primary care physician: sIabelle Dailey MD Hospital Course: 82-year-old female with PMH of bilateral total knee arthroplasty, hypertension, hyperlipidemia, history of breast cancer, chronic kidney disease, CAD presents [facility] after sustaining a ground-level fall. Apparently, patient rolled out of her bed landing on her left side. Patient has a caregiver to assist her at home with activities of daily living. Patient has a history of recurrent UTIs. Apparently, patient is a very poor historian and is confused at baseline. X-ray of the left lower extremity showed a displaced left femoral neck fracture. Her potassium on admission was 5.8, she was given Kayexalate one-time dose and her potassium normalized at the time of discharge. Urinalysis showed large leukocyte esterase. Dr. Kapoor ID was consulted for treatment of UTI. Previous cultures indicated sensitivity to Rocephin and ID recommended continuation of treatment. Nephrology was consulted for management of chronic kidney disease and hyperkalemia and recommended continuation of sodium bicarbonate. Patient went to OR October 14 for fixation of left hip fracture with intramedullary hip screw. Her hemoglobin on 10/15/2018 was 6.8. She was transfused 1 unit PRBC, repeat hemoglobin maintained at 7.5, 7.0 and 7.7 on discharge. There was a report from nursing that patient became hypotensive and complained of back pain during her transfusion for which it was stopped. Blood was sent back to the lab for analysis. Patient was seen and examined for discharge. No acute events overnight. Was able to get up with physical therapy. Caregiver present today as well. Patient pleasantly confused. No complaints. General: [non toxic], [no distress], [appears at stated age] Derm: [warm], [dry] Head: [atraumatic], [normocephalic], [symmetric] Eyes: [EOMI], [no lid lag], [anicteric sclera] Mouth: [no lip lesion], [mucus membranes moist] Cardiovascular: [S1S2 reg], [no murmur] Lungs: [Decreased breath sounds with poor effort bilateral], [no rhonchi, no rales] , [no accessory muscle use] Abdominal: [soft], [ nontender to palpation], [no guarding], [no appreciable organomegaly] Ext: [no gross muscle atrophy], [no edema], [no contractures], [left hip dressing clean dry and intact] Neuro: [no focal neuro deficits] Psych: [Pleasantly confused] Urinary tract infection with leukocytosis Anemia, macrocytic with MCV 105.7, from acute blood loss Metabolic acidosis Chronic kidney disease Hypertension Diabetes mellitus CAD Left hip fracture Urinalysis shows large leukocyte esterase. Urine culture negative. Plans: DC Rocephin and start levofloxacin to complete a total of 7 days. Hemoglobin went from 6.8-7.7 on discharge post 1 unit PRBC. Likely related to acute blood loss. B12 March 2018 within normal limits. Folate August 2017 within normal limits. Plans: Transfuse if hemoglobin less than 7. Continue iron sulfate. Bicarbonate 19. Likely related to chronic kidney disease. No respiratory compromise. Plans: Continue sodium bicarbonate by mouth. Daily BMP. Follow nephrology consultation. Creatinine 3.15. Appears to be at baseline. Plans: Daily BMP. Avoid nephrotoxins. Follow nephrology consultation. BP 98/56. Plans: We'll stop metoprolol and amlodipine on discharge. Monitor vi tals, adjust medications as necessary. [id number] glucose 149. Plans: Insulin sliding scale. Regular Accu-Cheks. Hypoglycemic precautions. Stable. Plans: Continue aspirin and Lipitor. POD 2. Plans: Management as per orthopedic surgery. [Post surgery, stable. Plans for DC to ECF.] Pertinent Studies: Femur, pelvis, tibia and fibula x-ray, lumbar spine x-ray. Procedures: Fixation of left hip with intramedullary hip screw Patient Condition at Discharge: Stable Plan - Discharge Summary Discharge Rx Participant: No New Discharge Prescriptions: New Levofloxacin [Levaquin] 750 mg PO DAILY 5 Days #5 tab Enoxaparin [Lovenox] 30 mg SQ DAILY 40 Days syringe Continue Lovastatin [Mevacor] 20 mg PO DAILY Aspirin [Adult Low Dose Aspirin EC] 81 mg PO DAILY Ferrous Sulfate [Iron (65 MG Elemental)] 325 mg PO AC-TID Docusate [Colace] 100 mg PO BID Furosemide [Lasix] 20 mg PO DAILY Ranitidine HCl 300 mg PO DAILY Allopurinol [Zyloprim] 100 mg PO BID Sodium Bicarbonate Tab 650 mg PO DAILY Gabapentin [Neurontin] 300 mg PO BID #6 cap HYDROcodone/APAP 5-325MG [[place] 5-325] 1 tab PO BID PRN #6 tab PRN Reason: Severe Pain Discontinued Metoprolol Tartrate [Lopressor] 50 mg PO DAILY amLODIPine [Norvasc] 2.5 mg PO DAILY #30 tab Discharge Medication List Aspirin [Adult Low Dose Aspirin EC] 81 mg PO DAILY 05/23/15 [History] Lovastatin [Mevacor] 20 mg PO DAILY 05/23/15 [History] Docusate [Colace] 100 mg PO BID 12/20/17 [History] Ferrous Sulfate [Iron (65 MG Elemental)] 325 mg PO AC-TID 12/20/17 [History] Furosemide [Lasix] 20 mg PO DAILY 12/20/17 [History] Allopurinol [Zyloprim] 100 mg PO BID 03/25/18 [History] Ranitidine HCl 300 mg PO DAILY 03/25/18 [History] Sodium Bicarbonate Tab 650 mg PO DAILY 10/13/18 [History] Enoxaparin [Lovenox] 30 mg SQ DAILY 40 Days syringe 10/16/18 [Rx] Gabapentin [Neurontin] 300 mg PO BID #6 cap 10/16/18 [Rx] HYDROcodone/APAP 5-325MG [[place] 5-325] 1 tab PO BID PRN #6 tab 10/16/18 [Rx] Levofloxacin [Levaquin] 750 mg PO DAILY 5 Days #5 tab 10/16/18 [Rx] Follow up Appointment(s)/Referral(s): Isabelle Dailey MD [Primary Care Provider] - 1-2 days Stiven Curiel MD [Medical Doctor] - 1 Week Ambulatory/Diagnostic Orders: Basic Metabolic Panel [LAB.AMB] Time Frame: 3 Days, Location: None Selected Complete Blood Count w/diff [LAB.AMB] Time Frame: 3 Days, Location: None Selected Activity/Diet/Wound Care/Special Instructions: Diet: Soft Follow-up PCP within 1-2 days of discharge. Follow-up orthopedic surgery within 1 week of discharge. Please take all medications as advised. Discharge Disposition: TRANSFER TO SNF/ECF
[2018-10-16 17:01] LABS: Glucose,Whole Blood 218 mg/dL (75-99)
--- NOTE | 2018-10-16 18:56 | PN ---
PROGRESS NOTE Patient is seen for followup for acute kidney injury on top of chronic kidney disease. Her serum creatinine was 2.37 on admission. It did increase to 3.3 yesterday, mainly secondary to significant drop in the hemoglobin postoperatively. Patient has been transfused packed RBCs. Her creatinine is slightly better today at 3.1. She is comfortable, awake. Patient has had good urine output. She has an indwelling Aguila catheter, which was which will be discontinued. On examination this morning, blood pressure was 98/56, heart rate 90 per minute. She is afebrile. EXAMINATION OF THE HEART: S1 and S2. EXAMINATION OF LUNGS: Bilateral breath sounds are heard. ABDOMEN: Soft, non-tender. Examination of lower extremities shows chronic skin changes. Trace edema bilaterally. MEDICAL DEVICE SALES exam is grossly intact. Labs show hemoglobin 7.7 today, serum creatinine 3.15, sodium 140, potassium 4.5. CO2 is 19. ASSESSMENT: 1. Acute kidney injury secondary to severe anemia, currently improved. 2. Anemia postoperatively, status post packed RBCs transfusion. 3. Hypotension, somewhat improved. Patient is not on any significant antihypertensive medications. 4. Metabolic acidosis, maintained on sodium bicarb. 5. Left femoral neck fracture, status post intramedullary hip screw and operative fixation of the fracture on 10/15/2018. 6. Chronic kidney disease, stage IV, secondary to nephrosclerosis. 7. Hyperkalemia associated with acute kidney injury, currently improved. PLAN: May continue with small dose of Lasix, which will also help with the hyperkalemia. Repeat labs in a.m. Follow up as outpatient if patient is discharged. MMODL / IJN: [id number] /
[2018-10-16] MEDS: SODIUM CHLORIDE 0.9% 1,000 ML IV SCH (19:57)
[2018-10-16 20:10] LABS: Anisocytosis Slight; HGB 7.2 gm/dL (11.4-16.0); Hypochromasia Marked; MCH 31.5 pg (25.0-35.0); MCHC 28.8 g/dL (31.0-37.0); MCV 109.2 fL (80.0-100.0); Macrocytosis Marked; Mean Platelet Volume 7.7; Platelet Count 394 k/uL (150-450); RBC 2.28 m/uL (3.80-5.40); RDW 18.3 % (11.5-15.5); WBC 23.6 k/uL (3.8-10.6)
[2018-10-16 20:33] LABS: Glucose,Whole Blood 211 mg/dL (75-99)
[2018-10-16 21:07] LABS: Anisocytosis (M) Present; Band Neutrophils % 3 %; Lymphocytes # (M) 3.07 k/uL (1.0-4.8); Metamyelocytes # (M) 0.24 k/uL (0); Metamyelocytes % 1 %; Monocytes # (M) 4.01 k/uL (0-1.0); Neutrophils % (M) 66 %; Nucleated Red Blood Cells 0 /100 WBC (0-0); Poikilocytosis (M) Present; Polychromasia Present; Total Cells Counted 100
[2018-10-17 06:52] LABS: Glucose,Whole Blood 165 mg/dL (75-99)
[2018-10-17] MEDS: INSULIN ASPART (NovoLOG) 100 UNIT/ML VIAL SQ SCH ×3 (09:16→17:21)
[2018-10-17] MEDS: DOCUSATE 100 MG CAP PO SCH ×2 (09:20→19:43)
[2018-10-17] MEDS: FERROUS SULFATE 325 MG TAB PO SCH ×3 (09:20→17:55)
[2018-10-17] MEDS: ASPIRIN 81 MG PO SCH (09:20)
[2018-10-17] MEDS: METOPROLOL TARTRATE 50 MG TAB PO SCH (09:20)
[2018-10-17] MEDS: FAMOTIDINE 20 MG TAB PO SCH (09:20)
[2018-10-17] MEDS: ATORVASTATIN 10 MG TAB PO SCH (09:20)
[2018-10-17] MEDS: GABAPENTIN 300 MG CAP PO SCH ×2 (09:21→19:43)
[2018-10-17] MEDS: ENOXAPARIN 30 MG/0.3 ML SYRINGE SQ SCH (09:21)
[2018-10-17] MEDS: ALLOPURINOL 100 MG TAB PO SCH ×2 (09:21→19:43)
[2018-10-17] MEDS: FUROSEMIDE 20 MG TAB PO SCH (09:21)
[2018-10-17] MEDS: HYDROcodone/APAP 5-325MG 1 EACH TAB PO PRN (09:40)
--- NOTE | 2018-10-17 10:22 | P.PN ---
Subjective Progress Note Date: 10/17/18 Principal diagnosis: Left hip fracture Patient was seen and examined. No acute events overnight. Patient reports well-controlled pain. Review of vital signs show overnight tachycardic heart rate greater than 100. However, when I examined the patient, she is resting comfortably. Her heart rate is in the 70s and 80s currently. Her O2 saturation is 96% on room air. Unable to go to rehab yesterday due to insurance reasons. Objective - Vital Signs Vital signs: Vital Signs Temp 98 F 10/17/18 07:00 Pulse 68 10/17/18 10:09 Resp 14 10/17/18 07:00 BP 133/63 10/17/18 07:00 Pulse Ox 98 10/17/18 10:09 Intake & Output 10/16/18 10/17/18 10/17/18 18:59 06:59 18:59 Intake Total 420 160 296 Output Total 550 Balance -130 160 296 Intake: Intake, IV Titration 160 160 Amount Sodium Chloride 0.9% 1, 160 160 000 ml @ 20 mls/hr IV . Q24H [facility] Rx#:[id number] Oral 260 296 Output: Urine 550 Other: Voiding Method Diaper Diaper Diaper Incontinent Incontinent Incontinent # Voids 2 - Exam General: [non toxic], [no distress], [appears at stated age] Derm: [warm], [dry] Head: [atraumatic], [normocephalic], [symmetric] Eyes: [EOMI], [no lid lag], [anicteric sclera] Mouth: [no lip lesion], [mucus membranes moist] Cardiovascular: [S1S2 reg], [no murmur] Lungs: [Decreased breath sounds with poor effort bilateral], [no rhonchi, no rales] , [no accessory muscle use] Abdominal: [soft], [ nontender to palpation], [no guarding], [no appreciable organomegaly] Ext: [no gross muscle atrophy], [no edema], [no contractures], [left hip dressing clean dry and intact] Neuro: [no focal neuro deficits] Psych: [Pleasantly confused] - Labs CBC & Chem 7: 10/16/18 19:05 10/16/18 06:50 Labs: Abnormal Lab Results - Last 24 Hours (Table) 10/16/18 10/16/18 10/16/18 Range/Units 11:58 12:06 16:59 WBC 28.4 H (3.8-10.6) k/uL RBC 2.47 L (3.80-5.40) m/uL Hgb 7.7 L (11.4-16.0) gm/dL Hct 25.8 L (34.0-46.0) % MCV 104.3 H (80.0-100.0) fL MCHC 30.0 L (31.0-37.0) g/dL RDW 18.3 H (11.5-15.5) % Neutrophils # (Manual) (1.3-7.7) k/uL Monocytes # (Manual) (0-1.0) k/uL Metamyelocytes # (Man) (0) k/uL Macrocytosis POC Glucose (mg/dL) 143 H 218 H (75-99) mg/dL 10/16/18 10/16/18 10/17/18 Range/Units 19:05 20:32 06:51 WBC 23.6 H (3.8-10.6) k/uL RBC 2.28 L (3.80-5.40) m/uL Hgb 7.2 L (11.4-16.0) gm/dL Hct 25.0 L (34.0-46.0) % MCV 109.2 H (80.0-100.0) fL MCHC 28.8 L (31.0-37.0) g/dL RDW 18.3 H (11.5-15.5) % Neutrophils # (Manual) 16.20 H (1.3-7.7) k/uL Monocytes # (Manual) 4.01 H (0-1.0) k/uL Metamyelocytes # (Man) 0.24 H (0) k/uL Macrocytosis Marked A POC Glucose (mg/dL) 211 H 165 H (75-99) mg/dL Assessment and Plan Assessment: Urinary tract infection with leukocytosis Anemia, macrocytic with MCV 105.7, from acute blood loss Metabolic acidosis Chronic kidney disease Hypertension Diabetes mellitus CAD Left hip fracture Urinalysis shows large leukocyte esterase. Urine culture negative. Plans: DC Rocephin and start levofloxacin to complete a total of 7 days. Hemoglobin went from 6.8-7.7-7.2 on discharge post 1 unit PRBC. Likely related to acute blood loss. B12 March 2018 within normal limits. Folate August 2017 within normal limits. Plans: Transfuse if hemoglobin less than 7. Continue iron sulfate. Bicarbonate 19. Likely related to chronic kidney disease. No respiratory compromise. Plans: Continue sodium bicarbonate by mouth. Daily BMP. Follow nephrology consultation. Creatinine 3.15. Appears to be at baseline. Plans: Daily BMP. Avoid nephrotoxins. Follow nephrology consultation. BP 133/63. Plans: We'll stop metoprolol and amlodipine on discharge. Monitor vitals, adjust medications as necessary. [id number] glucose 165. Plans: Insulin sliding scale. Regular Accu-Cheks. Hypoglycemic precautions. Stable. Plans: Continue aspirin and Lipitor. POD 3. Plans: Management as per orthopedic surgery. [Post surgery, stable. Plans for DC to ECF.]
[2018-10-17] MEDS: SODIUM BICARBONATE TAB 650 MG TAB PO SCH (10:32)
[2018-10-17 10:34] LABS: Anisocytosis Slight; Hypochromasia Slight; MCHC 31.2 g/dL (31.0-37.0); MCV 102.4 fL (80.0-100.0); Macrocytosis Moderate; Platelet Count 412 k/uL (150-450); RBC 2.05 m/uL (3.80-5.40); RDW 18.4 % (11.5-15.5); WBC 21.9 k/uL (3.8-10.6)
[2018-10-17 10:36] LABS: Calcium 8.7 mg/dL (8.4-10.2); Potassium 4.2 mmol/L (3.5-5.1)
[2018-10-17 10:59] LABS: HGB 6.6 gm/dL (11.4-16.0)
[2018-10-17 11:42] LABS: Glucose,Whole Blood 144 mg/dL (75-99)
[2018-10-17] MEDS ORDERED: DARBEPOETIN ALFA 40 MCG/0.4 ML SYRINGE SQ SCH (12:00)
--- NOTE | 2018-10-17 12:05 | PN ---
PROGRESS NOTE Patient is seen for followup for acute kidney injury and chronic kidney disease. She is currently awake, comfortable. Patient is eating. She denies any significant complaints. Her hemoglobin has dropped again to 6.6 g/dL. Serum creatinine is staying at about 3 mg/dL. Patient has had good urine output. She is incontinent. Her Aguila catheter was removed. PHYSICAL EXAMINATION: Blood pressure is 133/63, heart rate 106 per minute. She is afebrile. Examination of the heart S1, S2. Examination of the lungs, bilateral breath sounds are heard. Abdomen is soft, nontender, obese. Examination of the lower extremities shows trace edema bilaterally. SENIOR PAINTER exam grossly intact. LABS: Show hemoglobin 6.6, white cell count 21.9. Sodium 137, potassium 4.2, BUN 54, serum creatinine 3.04, CO2 is 18. ASSESSMENT: 1. Acute kidney injury secondary to severe anemia. Renal function is slightly better than 3 days ago. Patient has had good urine output. She is maintained on a very small dose of Lasix. She is not on any IV fluids. I will continue with the Lasix for now. We need to transfuse packed RBCs. 2. Anemia postoperatively. Check iron studies. I will also add Aranesp, no active bleeding noted at this time. 3. Chronic kidney disease, NKF stage IV secondary to nephrosclerosis. 4. Hyperkalemia associated with acute kidney injury, now improved. 5. Metabolic acidosis. Maintained on sodium bicarb. 6. Left femoral neck fracture, status post intramedullary hip and fixation of fracture. PLAN: Add Aranesp. Check iron profile if not done this admission and transfuse packed RBCs. Continue with the sodium bicarb. MMODL / IJN: [id number] /
--- NOTE | 2018-10-17 12:52 | P.PN ---
Subjective Progress Note Date: 10/17/18 This patient is an 82-year-old female with a past medical history of bilateral total knee arthroplasty, prior left foot and ankle surgery in 2006, hypertension, hyperlipidemia, history of breast cancer, chronic kidney disease, GERD, coronary artery disease, and bilateral sciatica that presented to [facility] emergency department on 10/13/18 via EMS after sustaining a ground-level fall. The patient states she is getting out of bed today when she fell, landing on her left side. Patient was not able to get off the ground, or ambulate. She states she called for help for her daughter, who called EMS. On presentation to the emergency department, the patient was found to have a left basicervical femoral neck fracture. The patient was admitted under the care of Dr. Curiel with consults placed to internal medicine for medical management. Per nursing, the patient's family is out of town at this time. She has a care transitions manager that presents to her home to assist with activities of daily living. Per her home health nurse, patient has had issues with recurrent UTIs, which have resulted in confusion. Patient's home health nurse states she has remained confused from her most recent UTI. She uses a walker at baseline, and lives along in the home. The patient is a very poor historian. At the time of exam, the patient states her pain is localized to the left hip, and at the beginning of my exam she states that she is also experiencing back pain. She also notes she is experiencing pain radiating down bilateral lower extremities, although she denies this when asked about this pain pain later in my exam. It appears taht with movement, she localizes her pain explicitly to the left hip. She denies pain in the upper extremities. She denies bowel or bladder dysfunction. She denies additional complaints at this time. 10/17/18: Today's postoperative day #3. The patient underwent operative fixation of her left basicervical femoral neck fracture with an intramedullary hip screw on 10/14/18. The patient appears more alert today, she states her left hip and back is sore today. She states she otherwise feels well. She denies any new complaints today. Patient denies chest pain, shortness of breath, nausea, vomiting, fevers, chills. Hemoglobin resulted at 6.6 today, recommended 1 unit PRBCs. Objective - Vital Signs Vital signs: Vital Signs Temp 98 F 10/17/18 07:00 Pulse 68 10/17/18 10:09 Resp 14 10/17/18 07:00 BP 133/63 10/17/18 07:00 Pulse Ox 98 10/17/18 10:09 Intake & Output 10/16/18 10/17/18 10/17/18 18:59 06:59 18:59 Intake Total 420 160 296 Output Total 550 Balance -130 160 296 Intake: Intake, IV Titration 160 160 Amount Sodium Chloride 0.9% 1, 160 160 000 ml @ 20 mls/hr IV . Q24H [facility] Rx#:[id number] Oral 260 296 Output: Urine 550 Other: Voiding Method Diaper Diaper Diaper Incontinent Incontinent Incontinent # Voids 2 - Exam On examination, the patient is lying in bed in no apparent distress. She is awake and alert, she is able to respond to questions. She is currently eating breakfast. Breathing appears nonlabored. On inspection of the left hip, there are clean, dry, intact surgical dressings in place. There is no drainage through the dressings. Incisions have no active drainage, no surrounding erythema, warmth, or fluctuance. No signs of infection. Left lower extremity is warm and well-perfused, with brisk capillary refill of all toes. Motor and senso ry function are intact of the left lower extremity. Vital signs stable. - Labs CBC & Chem 7: 10/17/18 09:43 10/17/18 09:43 Labs: Abnormal Lab Results - Last 24 Hours (Table) 10/15/18 10/16/18 10/16/18 Range/Units 14:58 16:59 19:05 WBC 23.6 H (3.8-10.6) k/uL RBC 2.28 L (3.80-5.40) m/uL Hgb 7.2 L (11.4-16.0) gm/dL Hct 25.0 L (34.0-46.0) % MCV 109.2 H (80.0-100.0) fL MCHC 28.8 L (31.0-37.0) g/dL RDW 18.3 H (11.5-15.5) % Neutrophils # (Manual) 16.20 H (1.3-7.7) k/uL Monocytes # (Manual) 4.01 H (0-1.0) k/uL Metamyelocytes # (Man) 0.24 H (0) k/uL Macrocytosis Marked A Carbon Dioxide (22-30) mmol/L BUN (7-17) mg/dL Creatinine (0.52-1.04) mg/dL Glucose (74-99) mg/dL POC Glucose (mg/dL) 218 H (75-99) mg/dL Crossmatch See Detail 10/16/18 10/17/18 10/17/18 Range/Units 20:32 06:51 09:43 WBC (3.8-10.6) k/uL RBC (3.80-5.40) m/uL Hgb (11.4-16.0) gm/dL Hct (34.0-46.0) % MCV (80.0-100.0) fL MCHC (31.0-37.0) g/dL RDW (11.5-15.5) % Neutrophils # (Manual) (1.3-7.7) k/uL Monocytes # (Manual) (0-1.0) k/uL Metamyelocytes # (Man) (0) k/uL Macrocytosis Carbon Dioxide 18 L (22-30) mmol/L BUN 54 H (7-17) mg/dL Creatinine 3.04 H (0.52-1.04) mg/dL Glucose 162 H (74-99) mg/dL POC Glucose (mg/dL) 211 H 165 H (75-99) mg/dL Crossmatch 10/17/18 10/17/18 Range/Units 09:43 11:41 WBC 21.9 H (3.8-10.6) k/uL RBC 2.05 L (3.80-5.40) m/uL Hgb 6.6 L* (11.4-16.0) gm/dL Hct 21.0 L (34.0-46.0) % MCV 102.4 H D (80.0-100.0) fL MCHC (31.0-37.0) g/dL RDW 18.4 H (11.5-15.5) % Neutrophils # (Manual) (1.3-7.7) k/uL Monocytes # (Manual) (0-1.0) k/uL Metamyelocytes # (Man) (0) k/uL Macrocytosis Carbon Dioxide (22-30) mmol/L BUN (7-17) mg/dL Creatinine (0.52-1.04) mg/dL Glucose (74-99) mg/dL POC Glucose (mg/dL) 144 H (75-99) mg/dL Crossmatch Assessment and Plan Assessment: Left basicervical femoral neck fracture status-post operative fixation with intramedullary hip screw on 10/14/18. Postoperative day #3. Chronic UTI Leukocytosis Post-operative anemia Plan: - Hemoglobin resulted as 6.6, spoke with internal medicine team this morning and recommended transfusion 1unit PRBCs. - We will continue to monitor patient's complaints of back pain in the outpatient setting. - Weight-bearing as tolerated of the left lower extremity. - Physical therapy for gait and balance training. - Continue pain management. - Lovenox 30mg for DVT prophylaxis. Upon discharge, patient will require 4 weeks of Lovenox. - 2 doses of postoperative antibiotics complete. - Anticipate discharge to subacute rehab. Patient will follow-up in the office with Dr. Curiel, two weeks after discharge. Patient discussed with Dr. Curiel.
[2018-10-17 16:38] LABS: Iron Saturation 4.95 (12.00-45.00)
[2018-10-17 16:53] LABS: Glucose,Whole Blood 130 mg/dL (75-99)
[2018-10-17] MEDS: SODIUM CHLORIDE 0.9% 1,000 ML IV SCH (17:56)
[2018-10-17 20:30] LABS: Glucose,Whole Blood 193 mg/dL (75-99)
[2018-10-18 07:05] LABS: Glucose,Whole Blood 160 mg/dL (75-99)
[2018-10-18 07:18] LABS: Anisocytosis Slight; HGB 7.9 gm/dL (11.4-16.0); Hypochromasia Moderate; MCH 30.4 pg (25.0-35.0); MCHC 30.4 g/dL (31.0-37.0); MCV 99.9 fL (80.0-100.0); Macrocytosis Slight; Mean Platelet Volume 7.2; Platelet Count 393 k/uL (150-450); Poikilocytosis Slight; RDW 17.9 % (11.5-15.5); WBC 18.5 k/uL (3.8-10.6)
[2018-10-18 08:02] LABS: Band Neutrophils % 1 %; Eosinophils # (M) 0.56 k/uL (0-0.7); Lymphocytes # (M) 2.59 k/uL (1.0-4.8); Metamyelocytes # (M) 0.19 k/uL (0); Metamyelocytes % 1 %; Monocytes # (M) 4.07 k/uL (0-1.0); Myelocytes # (M) 0.37 k/uL (0); Myelocytes % 2 %; Neutrophils % (M) 60 %; Nucleated Red Blood Cells 0 /100 WBC (0-0); Total Cells Counted 200
[2018-10-18] MEDS: GABAPENTIN 300 MG CAP PO SCH (08:06)
[2018-10-18] MEDS: DOCUSATE 100 MG CAP PO SCH (08:06)
[2018-10-18] MEDS: INSULIN ASPART (NovoLOG) 100 UNIT/ML VIAL SQ SCH (08:06)
[2018-10-18] MEDS: ATORVASTATIN 10 MG TAB PO SCH (08:06)
[2018-10-18] MEDS: ENOXAPARIN 30 MG/0.3 ML SYRINGE SQ SCH (08:06)
[2018-10-18] MEDS: ALLOPURINOL 100 MG TAB PO SCH (08:07)
[2018-10-18] MEDS: METOPROLOL TARTRATE 50 MG TAB PO SCH (08:07)
[2018-10-18] MEDS: FUROSEMIDE 20 MG TAB PO SCH (08:07)
[2018-10-18] MEDS: ASPIRIN 81 MG PO SCH (08:07)
[2018-10-18] MEDS: FERROUS SULFATE 325 MG TAB PO SCH (08:07)
[2018-10-18] MEDS: SODIUM BICARBONATE TAB 650 MG TAB PO SCH (08:08)
[2018-10-18] MEDS: SODIUM CHLORIDE 0.9% 1,000 ML IV SCH (08:16)
[2018-10-18] MEDS ORDERED: FAMOTIDINE 20 MG TAB PO SCH (09:00)
[2018-10-18 09:31] VITALS: BP 131/66; PULSE 84; RESP 18; TEMP 97.7
--- NOTE | 2018-10-18 10:11 | P.PN ---
Subjective Progress Note Date: 10/18/18 Principal diagnosis: Left hip pain Patient was seen and examined. No acute events overnight. Transfused yesterday 1 unit PRBC. Hemoglobin 7.9, appropriate. She is resting comfortably in bed without any complaints. Objective - Vital Signs Vital signs: Vital Signs Temp 97.7 F 10/18/18 07:58 Pulse 84 10/18/18 07:58 Resp 18 10/18/18 07:58 BP 131/66 10/18/18 07:58 Pulse Ox 96 10/18/18 07:58 Intake & Output 10/17/18 10/18/18 10/18/18 18:59 06:59 18:59 Intake Total 1002 600 Balance 1002 600 Intake: IV 160 Sodium Chloride 0.9% 1, 160 000 ml @ 20 mls/hr IV . Q24H [facility] Rx#:[id number] Intake, IV Titration 60 Amount Sodium Chloride 0.9% 1, 60 000 ml @ 20 mls/hr IV . Q24H [facility] Rx#:[id number] Oral 532 540 Blood Product 310 Rc As-1 Unit 310 [id number] Other: Voiding Method Diaper Diaper Incontinent Incontinent # Voids 1 - Exam General: [non toxic], [no distress], [appears at stated age] Derm: [warm], [dry] Head: [atraumatic], [normocephalic], [symmetric] Eyes: [EOMI], [no lid lag], [anicteric sclera] Mouth: [no lip lesion], [mucus membranes moist] Cardiovascular: [S1S2 reg], [no murmur] Lungs: [Decreased breath sounds with poor effort bilateral], [no rhonchi, no rales] , [no accessory muscle use] Abdominal: [soft], [ nontender to palpation], [no guarding], [no appreciable organomegaly] Ext: [no gross muscle atrophy], [no edema], [no contractures], [left hip dressing clean dry and intact, no swelling or hematoma] Neuro: [no focal neuro deficits] Psych: [Pleasantly confused] - Labs CBC & Chem 7: 10/18/18 06:11 10/18/18 06:11 Labs: Abnormal Lab Results - Last 24 Hours (Table) 10/15/18 10/17/18 10/17/18 Range/Units 14:58 09:43 09:43 WBC 21.9 H (3.8-10.6) k/uL RBC 2.05 L (3.80-5.40) m/uL Hgb 6.6 L* (11.4-16.0) gm/dL Hct 21.0 L (34.0-46.0) % MCV 102.4 H D (80.0-100.0) fL MCHC (31.0-37.0) g/dL RDW 18.4 H (11.5-15.5) % Neutrophils # (Manual) (1.3-7.7) k/uL Monocytes # (Manual) (0-1.0) k/uL Metamyelocytes # (Man) (0) k/uL Myelocytes # (Manual) (0) k/uL Carbon Dioxide 18 L (22-30) mmol/L BUN 54 H (7-17) mg/dL Creatinine 3.04 H (0.52-1.04) mg/dL Glucose 162 H (74-99) mg/dL POC Glucose (mg/dL) (75-99) mg/dL Iron (50-170) ug/dL TIBC (228-460) ug/dL Iron Saturation (12.00-45.00) Crossmatch See Detail 10/17/18 10/17/18 10/17/18 Range/Units 09:43 11:41 16:51 WBC (3.8-10.6) k/uL RBC (3.80-5.40) m/uL Hgb (11.4-16.0) gm/dL Hct (34.0-46.0) % MCV (80.0-100.0) fL MCHC (31.0-37.0) g/dL RDW (11.5-15.5) % Neutrophils # (Manual) (1.3-7.7) k/uL Monocytes # (Manual) (0-1.0) k/uL Metamyelocytes # (Man) (0) k/uL Myelocytes # (Manual) (0) k/uL Carbon Dioxide (22-30) mmol/L BUN (7-17) mg/dL Creatinine (0.52-1.04) mg/dL Glucose (74-99) mg/dL POC Glucose (mg/dL) 144 H 130 H (75-99) mg/dL Iron 9 L (50-170) ug/dL TIBC 182 L (228-460) ug/dL Iron Saturation 4.95 L (12.00-45.00) Crossmatch 10/17/18 10/18/18 10/18/18 Range/Units 20:29 06:11 06:11 WBC 18.5 H (3.8-10.6) k/uL RBC 2.60 L (3.80-5.40) m/uL Hgb 7.9 L (11.4-16.0) gm/dL Hct 26.0 L (34.0-46.0) % MCV (80.0-100.0) fL MCHC 30.4 L (31.0-37.0) g/dL RDW 17.9 H (11.5-15.5) % Neutrophils # (Manual) 11.20 H (1.3-7.7) k/uL Monocytes # (Manual) 4.07 H (0-1.0) k/uL Metamyelocytes # (Man) 0.19 H (0) k/uL Myelocytes # (Manual) 0.37 H (0) k/uL Carbon Dioxide 20 L (22-30) mmol/L BUN 56 H (7-17) mg/dL Creatinine 2.97 H (0.52-1.04) mg/dL Glucose 145 H (74-99) mg/dL POC Glucose (mg/dL) 193 H (75-99) mg/dL Iron (50-170) ug/dL TIBC (228-460) ug/dL Iron Saturation (12.00-45.00) Crossmatch 10/18/18 Range/Units 06:53 WBC (3.8-10.6) k/uL RBC (3.80-5.40) m/uL Hgb (11.4-16.0) gm/dL Hct (34.0-46.0) % MCV (80.0-100.0) fL MCHC (31.0-37.0) g/dL RDW (11.5-15.5) % Neutrophils # (Manual) (1.3-7.7) k/uL Monocytes # (Manual) (0-1.0) k/uL Metamyelocytes # (Man) (0) k/uL Myelocytes # (Manual) (0) k/uL Carbon Dioxide (22-30) mmol/L BUN (7-17) mg/dL Creatinine (0.52-1.04) mg/dL Glucose (74-99) mg/dL POC Glucose (mg/dL) 160 H (75-99) mg/dL Iron (50-170) ug/dL TIBC (228-460) ug/dL Iron Saturation (12.00-45.00) Crossmatch Assessment and Plan Assessment: Urinary tract infection with leukocytosis Anemia, macrocytic with MCV 105.7, from acute blood loss Metabolic acidosis Chronic kidney disease Hypertension Diabetes mellitus CAD Left hip fracture Urinalysis shows large leukocyte esterase. Urine culture negative. Leukocytosis improving. Plans: DC Rocephin and start levofloxacin to complete a total of 7 days. Hemoglobin went from 6.6-7.9 on discharge post 2 unit PRBC. Likely related to acute blood loss. B12 March 2018 within normal limits. Folate August 2017 within normal limits. Plans: Transfuse if hemoglobin less than 7. Continue iron sulfate. Bicarbonate 20, improving. Likely related to chronic kidney disease. No respiratory compromise. Plans: Continue sodium bicarbonate by mouth. Daily BMP. Follow nephrology consultation. Creatinine 3.15-2.97. Appears to be at baseline. Plans: Daily BMP. Avoid nephrotoxins. Follow nephrology consultation. BP 131/66. Plans: We'll stop metoprolol and amlodipine on discharge. Monitor vitals, adjust medications as necessary. Ixirc-ie-fhzy glucose 160. Plans: Insulin sliding scale. Regular Accu-Cheks. Hypoglycemic precautions. Stable. Plans: Continue aspirin and Lipitor. POD 4. Plans: Management as per orthopedic surgery. [Post surgery, hemodynamically stable. Leukocytosis coming down, plans to continue levofloxacin. Hemoglobin stable. Plans for DC to ECF.]
--- NOTE | 2018-10-18 10:36 | P.PN ---
Progress Note - Text Progress Note Date: 10/18/18 This is an 82-year-old female who is status post intramedullary screw fixation on 10/14/2018. She is resting comfortably in bed. She is awaiting discharged to inpatient rehab today. According to nursing she has no new complaints or concerns today. Her dressing is clean, dry and intact. She is sleeping soundly. She may be discharged to inpatient rehab today. Please see discharge orders and discharge summary per medical.
== END 2018-10-18 11:31 | DRG 481 ==
LOC: EC 09:27 → 4SSUR 10:51
PROVIDERS: ADMIT Family Medicine; ATTEND Family Medicine
PROC: 0QS706Z Reposition Left Upper Femur with Intramedullary Internal Fixation Device, Open Approach (ICD-10-PCS; principal; 2018-10-14 15:00)
PROC: 30233N1 Transfusion of Nonautologous Red Blood Cells into Peripheral Vein, Percutaneous Approach (ICD-10-PCS; 2018-10-15)
DX: S72.002A Fracture of unspecified part of neck of left femur, initial encounter for closed fracture (principal); D62 Acute posthemorrhagic anemia; Z68.41 Body mass index [BMI] 40.0-44.9, adult; E87.2 Acidosis; I13.0 Hypertensive heart and chronic kidney disease with heart failure and stage 1 through stage 4 chronic kidney disease, or unspecified chronic kidney disease; I38 Endocarditis, valve unspecified; N17.9 Acute kidney failure, unspecified; N18.4 Chronic kidney disease, stage 4 (severe); N39.0 Urinary tract infection, site not specified; E11.22 Type 2 diabetes mellitus with diabetic chronic kidney disease; E11.40 Type 2 diabetes mellitus with diabetic neuropathy, unspecified; E66.9 Obesity, unspecified; E78.5 Hyperlipidemia, unspecified; E87.5 Hyperkalemia; F03.90 Unspecified dementia, unspecified severity, without behavioral disturbance, psychotic disturbance, mood disturbance, and anxiety; H91.90 Unspecified hearing loss, unspecified ear; I25.10 Atherosclerotic heart disease of native coronary artery without angina pectoris; I35.0 Nonrheumatic aortic (valve) stenosis; I50.9 Heart failure, unspecified; I70.0 Atherosclerosis of aorta; K21.9 Gastro-esophageal reflux disease without esophagitis; R32 Unspecified urinary incontinence; W06.XXXA Fall from bed, initial encounter; Y92.003 Bedroom of unspecified non-institutional (private) residence as the place of occurrence of the external cause; Z79.82 Long term (current) use of aspirin; Z79.899 Other long term (current) drug therapy; Z85.3 Personal history of malignant neoplasm of breast; Z86.14 Personal history of Methicillin resistant Staphylococcus aureus infection; Z87.11 Personal history of peptic ulcer disease; Z87.440 Personal history of urinary (tract) infections; Z87.892 Personal history of anaphylaxis; Z88.0 Allergy status to penicillin; Z90.11 Acquired absence of right breast and nipple; Z95.5 Presence of coronary angioplasty implant and graft; Z98.42 Cataract extraction status, left eye; Z98.41 Cataract extraction status, right eye; Z96.1 Presence of intraocular lens; Z96.653 Presence of artificial knee joint, bilateral; I95.9 Hypotension, unspecified
CPT/HCPCS: 51702; 72100; 72170; 73502; 80048; 80053; 81001; 83036; 83540; 83550; 85025; 85027; 85610; 86850; 86880; 86900; 86901; 86920; 87086; 94760; 96372; 99284